=== PATIENT | female | born 1940 | race Caucasian/White ===

== ENCOUNTER 2016-12-16 15:11 | Emergency (ER) | payer MEDICARE, OTHER ==
[2016-12-16 15:24] VITALS: BP 142/65
[2016-12-16 16:04] LABS: Hematocrit 43.1 % (37.0-47.0); Hemoglobin 13.1 gm/dL (12.5-16.0); Mean Cell Volume 89.6 fl (78-100); Mean Corpuscular Hemoglobin 27.2 pg (27-31); Mean Corpuscular Hgb Conc 30.4 g/dl (32-36); Mean Platelet Volume 10.3 fl (6.0-9.5); Neutrophil % 79.8 % (42-75.0); Platelet Count 264 K/mm3 (150-450); Red Blood Count 4.81 M/mm3 (4.2-5.4); Red Cell Distribution Width 20.5 % (11.5-14.0); White Blood Count 7.5 K/mm3 (4.0-10.5)
[2016-12-16 16:18] LABS: INR 1.38 INR (0.90-1.10); Partial Thrombolplastin Time 26.8 Seconds (24-32); Prothrombin Time (Patient) 14.3 Seconds (9.4-11.4)
[2016-12-16 16:23] LABS: Troponin I Less than 0.017 ng/ml (0.00-0.10)
[2016-12-16 16:25] LABS: ALT 38 U/L (19-67); AST 20 U/L (0-48); Albumin * 3.2 gm/dl (3.4-5.0); Alkaline Phosphatase * 80 U/L (50-170); Anion Gap 8.7 mmol/L (6.8-13.8); BNP * 5271 pg/mL (5-550); BUN/Creatinine Ratio 22.8 (9.0-21.6); Bilirubin, Total 1.1 mg/dL (0.0-1.1); Blood Urea Nitrogen 34 mg/dL (3-23); Ca. Corrected For Albumin 10.1 mg/dL (8.4-10.2); Calcium * 9.8 mg/dL (7.9-10.9); Carbon Dioxide 31.1 mmol/L (24-32.6); Chloride 108 mmol/L (97-106); Glucose * 105 mg/dL (70-110); Potassium 3.8 mmol/L (3.4-4.6); Sodium 144 mmol/L (132-142); Total Protein 6.6 gm/dL (6.2-8.2)
--- OUTSIDE RECORDS SUMMARY | 2016-12-16 16:30 | XMS REPORT | Continuity of Care Document ---
:1940 Author Organization [employer] [place] [address] Care Team Providers Name Role Phone Unavailable Primary Care Provider Unavailable Source Comments This disclosure is being made pursuant to the [employer] program and maynot contain all information available regarding this patient.[employer] Active Allergies and Adverse Reactions Not on File Current Medications Be aware that medications may not be up to date as of this document. Alwaysverify current medications with the patient. Not on file Active Problems Not on file Social History Tobacco Use Types Packs/Day Years Used Date Never Assessed Plan of Care Health Maintenance Due Date Last Done Comments Retired-Pertussis Vaccine Adult 1959 Retired-Tetanus Vaccine Adult 1959 Well Adult Visit 1988 Zoster Vaccine 60+ 1998 Bone Density 09/08/2003 Retired-Pneumococcal 23 Vaccine-65+ yo 09/08/2003 Retired-INFLUENZA VACCINE 03/03/2015 Results from Last 3 Months Not on file
--- OUTSIDE RECORDS SUMMARY | 2016-12-16 16:30 | XMS REPORT | Continuity of Care Document ---
:1940 Author Organization [facility] ([facility]) Address [address] [place] [address] Phone [phone] Care Team Providers Name Role Phone Joel Skelton Primary Care Provider [phone] Source Comments This disclosure is being made pursuant to the Care Everywhere program, applicable federal and state laws, and may not contain all informaitonavailable regarding this patient.[facility] ([facility]) Active Allergies and Adverse Reactions Allergen Noted Date Severity Reactions Comments Meperidine 01/12/2009 Cardiac Arrhythmia Had to shock her heart when she received it Penicillins 01/12/2009 OTHER Breathing trouble Sulfadoxine 01/12/2009 OTHER "breathing trouble" Current Medications Prescription Sig. Disp. Refills Start End Date Status Date OXYGEN-AIR DELIVERY Active SYSTEMS (WALKABOUT 2 OXYGEN SYSTEM NA ) ALBUTEROL SULFATE Use by Active (PROAIR HFA INH) inhalation. travoprost (TRAVATAN Z) 1 Drop as needed. Active 0.004 % ophthalmic solution acetaminophen 325 mg Take 325 mg by Active tablet mouth every 4 hours as needed. metoPROLol tartrate 50 Take 75 mg by Active mg tablet mouth 2 times daily. warfarin 5 mg tablet Take 5 mg by Active mouth daily. hydroCHLOROthiazide 25 Take 25 mg by Active mg tablet mouth daily. furosemide 40 mg tablet Take 40 mg by Active mouth daily. digoxin 125 mcg tablet Take 125 mcg by Active mouth daily. ATORVASTATIN 20 mg 12/01/19 Discontinued tablet 3 17 METOPROLOL succinate 50 12/01/19 Discontinued mg XL tablet 3 17 aspirin 325 mg tablet Take 325 mg by 12/01/19 Discontinued mouth daily. 17 atropine 1 % ophthalmic instill 1 Drop 5 mL 0 12/01/19 Discontinued solution onto the right 3 17 eye 2 times daily. Indications: CYCLOPLEGIA prednisoLONE acetate 1 % instill 1 Drop 5 mL 0 12/01/19 Discontinued ophthalmic suspension onto the right 3 17 eye 4 times daily. Indications: SEVERE OCULAR INFLAMMATION tobramycin-dexamethasone apply 1 3.5 g 0 12/01/19 Discontinued (TOBRADEX) 0.3-0.1 % application 3 17 ophthalmic ointment topically 4 times daily. 1/2 inch to the incision; Use for 5-7 days Indications: OCULAR INFLAMMATION tobramycin-dexamethasone instill 1 Drop 5 mL 3 12/01/19 Discontinued 0.3-0.1 % ophthalmic onto the right 3 17 suspension eye 4 times daily. 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 RIGHT EYE LEFT EYE Date Diagnosis Procedure Comments Diagnosis Procedure Comments 08/17/07 demarc demarc Other Ocular Diagnoses: 1.Glaucoma 2. Ocular Procedures OD: 1. 2. Ocular Procedures OS: 1. 2. 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) 11/30/2016 Office Visit Vascular Surgery Default, Other Chief Comp: Patient Billg - Defo Reported Reason For Noah, Visit MD Jyothi 11/30/2016 Office Visit Vascular Surgery Default, Other Chief Comp: Patient Billg - Layo Reported Reason For Devonuntderrick, Visit MD Jyothi 11/30/2016 Office Visit Vascular Surgery Noah, Dx: 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 with other complications 11/30/2016 Office Visit Vascular Surgery Default, Other Chief Comp: Patient Billg - Defo Reported Reason For Visit 11/04/2016 Office Visit [facility] Chief Comp: Patient NMD Reported Reason For Visit Social History Tobacco Use Types Packs/Day Years Used Date Former Smoker Quit: 07/03/1999 Smokeless Tobacco: Never Used Tobacco Cessation:Counseling Given: Yes Comments: Alcohol Use Drinks/Week oz/Week Comments No Last Filed Vital Signs Vital Sign Reading Time Taken Blood Pressure 99/73 11/30/2016 10:13 AM CDT Pulse 64 11/30/2016 10:13 AM CDT Temperature 36.6 C (97.9 F) 06/03/2013 12:12 PM BOND WRITER Respiratory Rate 18 06/03/2013 9:44 AM BOND WRITER Height 1.702 m (5' 7") 11/30/2016 10:13 AM CDT Weight 103.5 kg (228 lb 2.8 oz) 11/30/2016 10:13 AM CDT Body Mass Index 35.73 11/30/2016 10:13 AM CDT Oxygen Saturation 95% 06/03/2013 12:30 PM BOND WRITER Plan of Care Health Maintenance Due Date Last Done Comments Hepatitis B Vaccine (1 of 3 - Primary Series) 1940 Tdap Vaccine 1949 Lipid Disorder Screening 1956 Td Vaccine 1956 Mammogram 1978 Colonoscopy 09/06/1988 Zoster Vaccine 1998 Osteoporosis Screening (DXA Bone Density) 09/08/2003 Pneumococcal Vaccine (1 of 2 - PCV13) 09/08/2003 Influenza Vaccine: Seasonal (Season Ended) 2017 Results from Last 3 Months VASC YOAV, PVR, TOE BP (11/30/2016 11:37 AM) Component Value Range VASC RIGHT ARM BP 123 mmHg VASC LEFT ARM BP 115 mmHg VASC RIGHT POSTERIOR TIBIAL 102 mmHg VASC LEFT POSTERIOR TIBIAL 112 mmHg VASC RIGHT ANTERIOR TIBIAL 105 mmHg VASC LEFT ANTERIOR TIBIAL 110 mmHg VASC RIGHT YOAV 0.85 VASC LEFT YOAV 0.91 VASC RIGHT TOE PRESSURE 72 mmHg VASC LEFT TOE PRESSURE 61 mmHg VASC RIGHT TBI 0.59 VASC LEFT TBI 0.50 VASC LOWER EXT VENOUS DUPLEX (BILATERAL) (11/30/2016 10:00 AM) Component Value Range VASC RIGHT LOWER VENOUS COMMON FEM SEC 0.3 sec VASC RIGHT LOWER VENOUS MID FEM SEC 0.0 sec VASC RIGHT LOWER VENOUS POPLITEAL SEC 0.5 sec VASC RIGHT LOWER VENOUS SAPH FEM JUNCTION SEC 0.1 sec VASC RIGHT LOWER VENOUS SAPH FEM JUNCTION MM 6.5 mm VASC RIGHT LOWER VENOUS LATERAL ACCESORY BRANCH SEC 0.0 sec VASC RIGHT LOWER VENOUS LATERAL ACCESORY BRANCH MM 3.7 mm VASC RIGHT LOWER VENOUS GSV THIGH SEC 0.1 sec VASC RIGHT LOWER VENOUS GSV THIGH MM 4.7 mm VASC RIGHT LOWER VENOUS GSV CALF SEC 0.1 sec VASC RIGHT LOWER VENOUS GSV CALF MM 3.5 mm VASC RIGHT LOWER VENOUS LSV SEC 0.3 sec VASC RIGHT LOWER VENOUS LSV MM 2.9 mm VASC LEFT LOWER VENOUS COMMON FEM SEC 0.4 sec VASC LEFT LOWER VENOUS MID FEM SEC 1.5 sec VASC LEFT LOWER VENOUS POPLITEAL SEC 3.8 sec VASC LEFT LOWER VENOUS SAPH FEM JUNCTION SEC 0.2 sec VASC LEFT LOWER VENOUS SAPH FEM JUNCTION MM 10 mm VASC LEFT LOWER VENOUS MEDIAL ACCESORY BRANCH SEC 0.0 sec VASC LEFT LOWER VENOUS MEDIAL ACCESORY BRANCH MM 4.0 mm VASC LEFT LOWER VENOUS GSV THIGH SEC 0.1 sec VASC LEFT LOWER VENOUS GSV THIGH MM 5.9 mm VASC LEFT LOWER VENOUS GSV CALF SEC 0.0 sec VASC LEFT LOWER VENOUS GSV CALF MM 3.3 mm VASC LEFT LOWER VENOUS LSV SEC 0.0 sec VASC LEFT LOWER VENOUS LSV MM 3.1 mm
--- NOTE | 2016-12-16 17:44 | ERNOTE ---
Medical Problem HPI - Narrative Date of Service: 12/16/16 - General Chief Complaint: General Assessment Time Seen by Provider: 12/16/16 15:32 Source: patient, family Exam Limitations: no limitations - Immun/Allergies/Home Medications Immunizations: IMMUNIZATION HX Immunizations Up to Date Yes History of Influenza Vaccine Yes Hx Pneumococcal Vaccination Yes Allergies/Adverse Reactions: Allergies meperidine HCl [From Demerol] Allergy (Mild, Verified 12/16/16 15:24) Penicillins Allergy (Mild, Verified 12/16/16 15:24) Sulfa (Sulfonamide Antibiotics) [Sulfa(Sulfonamide Antibiotics)] Allergy (Mild, Verified 12/16/16 15:24) Home Medications: HOME MEDICATIONS Metoprolol Succinate 75 mg PO BID 07/12/13 [Last Taken 09/30/15 11:09 50 mg] Furosemide [Lasix] 40 mg PO DAILY 05/04/15 [Last Taken 09/29/15 40 mg] Travoprost (Benzalkonium) [Travoprost 0.004% Eye Drop] 1 drop RIGHTEYE DAILY 08/17 [Last Taken 05/04/15] Arformoterol Tartrate [Brovana] 15 mcg IH BID 05/04/16 [Last Taken Unknown] Digoxin [Lanoxin] 0.125 mg PO DAILY 05/04/16 [Last Taken Unknown] Ipratropium [place] 0.2 mg IH BID 05/04/16 [Last Taken Unknown] Apixaban [Eliquis] 5 mg PO BID 12/16/16 [Last Taken Unknown] - History of Present History Narrative: patient saw dr dias monday and was switched off of coumadin and increased lasix to 80 mgs qday, just starte yesterday started on elliquis has had increase in peripheral swelling known hx of dvt,a-fib,chf Timing: constant Review of Systems - Review of Systems Constitutional: Present: malaise EYE: Present: no symptoms reported ENT: Present: no symptoms reported Respiratory: Present: shortness of breath Cardiology: Present: no symptoms reported Gastrointestinal/Abdominal: Present: no symptoms reported Genitourinary: Present: no symptoms reported Musculoskeletal: Present: no symptoms reported Skin: Present: no symptoms reported Neurological: Present: no symptoms reported Endocrine: Present: no symptoms reported Hematologic/Lymphatic: Present: no symptoms reported Psych: Present: no symptoms reported All Other Systems: All systems neg except as marked - Patient's Past Medical History Patient History - Medical: GERD, Osteoarthritis, Osteoporosis, Rheumatoid Arthritis Patient History - Cardiac/Respiratory: Atrial Fibrillation, Coronary Heart Disease, CHF, COPD, Deep Vein Thrombosis, Hypertension, Hyperlipidemia, Pulmonary Embolism Patient History - Cancer: Breast Patient History - Surgical Procedures: Appendectomy, Cataracts, Cholecystectomy , Colonoscopy Patient History - Other: None LMP (females 10-50): Menopausal - Family History Family History:: no untoward family reactions to anesthesia, no familial bleeding tendencies, no family history of clotting disorders, no family history of premature - Family History Father Family History - Medical: Osteoarthritis, Osteoporosis, Renal Disease Family History - Cardiac/Respiratory: Arrhythmias, Coronary Heart Disease, CHF, COPD, Deep Vein Thrombosis, Hypertension, Myocardial Infarction, Pulmonary Embolism Family History - Cancer: No pertinent family hx Mother Family History - Medical: Family History - Cardiac/Respiratory: Myocardial Infarction - Social History Living Situations: home Abuse History: No History of abuse Psych History: No pertinent hx Smoking Status: Former smoker Alcohol Use: none Drug Use: none - Immunizations Immunizations Up to Date: Yes Hx Pneumococcal Vaccination: Yes History of Influenza Vaccine: Yes Physical Exam - Physical Exam General Appearance: Present: mild distress, anxious Eye Exam: Normal inspection: bilateral, PERRL: bilateral, EOMI: bilateral Ears, Nose, Throat: Present: normal ENT inspection Neck: Present: normal inspection, nontender Respiratory: Present: decreased breath sounds, crackles, rales Cardiovascular/Chest: Present: irregularly irregular, systolic murmur Peripheral Pulses: N=norm/S=strong/W=weak/B=bound/A=absent: Carotid (R): Normal , Carotid (L): Normal, Radial (R): Normal, Radial (L): Normal, Femoral (R): Normal, Femoral (L): Normal, Dorsalis-pedis (R): Normal, Dorsalis-pedis (L): Normal Gastrointestinal/Abdominal: Present: normal bowel sounds, nontender, nondistended, soft, no organomegaly Back Exam: Present: normal inspection, normal range of motion, no CVA tenderness , no vertebral tenderness Extremity Exam: Present: decreased range of motion, pedal edema, calf tenderness , extremity edema Neurological Exam: Present: alert, oriented, normal mood/affect, no motor/ sensory deficits, research chef II-XII nml as tested DTR: N=norm/NB=norm/brisk/A=abs/DD=dull/dimin/HC=hyperactive: Bicep (R): Normal , Bicep (L): Normal, Tricep (R): Normal, Tricep (L): Normal, Knee (R): Normal, Knee (L): Normal, Ankle (R): Normal, Ankle (L): Normal Skin Exam: Present: normal color, warm/dry ED Progress - Results and Orders Patient's Lab Results:: I have reviewed the patient's lab results. - Vital Signs Patient's Vital Signs:: I have reviewed the patient's vital signs. Vital Signs: Vital Signs 12/16/16 15:12 Temperature 36.7 C Pulse Rate 115 H Respiratory 22 H Rate Blood Pressure 142/65 O2 Sat by Pulse 95 Oximetry - EKG EKG: atrial fibrillation - X-Ray X-Ray #1 Interpretation: Discd w/ radiologist - Progress/Reassessment Chief Complaint: General Assessment Progress:: Unchanged - Transfer of Care Expected Disposition: Discharge Departure - Departure Clinical Impression: Atrial fibrillation, DVT (deep venous thrombosis) Additional Instructions: patient to continue with lasix 80 mgs /day and elliquis as prescribed by dr zamora, f/u on monday Referrals: Joel Zamora DO [Primary Care Provider] -
== END 2016-12-16 17:44 | disposition home or self-care (01) ==
LOC: ER 15:11
DX: I48.91 Unspecified atrial fibrillation (principal); Z79.01 Long term (current) use of anticoagulants; I82.409 Acute embolism and thrombosis of unspecified deep veins of unspecified lower extremity; K21.9 Gastro-esophageal reflux disease without esophagitis; M06.9 Rheumatoid arthritis, unspecified; I25.2 Old myocardial infarction; I50.9 Heart failure, unspecified; J44.9 Chronic obstructive pulmonary disease, unspecified; I10 Essential (primary) hypertension; E78.5 Hyperlipidemia, unspecified

== ENCOUNTER 2016-12-24 21:04 | Observation (INO) | payer MEDICARE, OTHER ==
--- NOTE | 2016-12-24 21:13 | ERNOTE ---
Dyspnea - Date Date of Service: 12/24/16 - General Presenting Symptoms: shortness of breath Time Seen by Provider: 12/24/16 21:12 Source: patient Exam Limitations: no limitations - Immun/Allergies/Home Medications Immunizations: IMMUNIZATION HX Immunizations Up to Date Yes History of Influenza Vaccine Yes Hx Pneumococcal Vaccination Yes Allergies/Adverse Reactions: Allergies meperidine HCl [From Demerol] Allergy (Mild, Verified 12/16/16 15:24) Penicillins Allergy (Mild, Verified 12/16/16 15:24) Sulfa (Sulfonamide Antibiotics) [Sulfa(Sulfonamide Antibiotics)] Allergy (Mild, Verified 12/16/16 15:24) Home Medications: HOME MEDICATIONS Travoprost (Benzalkonium) [Travoprost 0.004% Eye Drop] 1 drop RIGHTEYE DAILY 08/17 [Last Taken 05/04/15] Digoxin [Lanoxin] 0.125 mg PO DAILY 05/04/16 [Last Taken Unknown] Ipratropium [place] 250 mcg IH BID 05/04/16 [Last Taken Unknown] Apixaban [Eliquis] 5 mg PO BID 12/16/16 [Last Taken Unknown] Budesonide [Pulmicort Respules] 0.5 mg IH BID 12/24/16 [Last Taken Unknown] Sodium Chloride For Inhalation [Sodium Chloride 3% Inhalation Solution] 4 ml IH BID 12/24/16 [Last Taken Unknown] Acetaminophen 650 mg PO Q6H PRN #30 tablet 12/26/16 [Last Taken Unknown] Furosemide [Lasix] 80 mg PO DAILY@1200 #30 tablet 12/26/16 [Last Taken Unknown] Lisinopril [Zestril] 2.5 mg PO DAILY #30 tablet 12/26/16 [Last Taken Unknown] Metoprolol Succinate [Toprol Xl] 150 mg PO HS #.1 tablet.sa 12/26/16 [Last Taken Unknown] Pantoprazole Sodium [Protonix] 40 mg PO 0700 tablet. 12/26/16 [Last Taken Unknown] Spironolactone [Aldactone] 25 mg PO DAILY@1200 #90 tablet 12/26/16 [Last Taken Unknown] - History of Present Illness Narrative: 76 year old that has been short of breath for a few months. In the last 1-2 days the shortness of breath has worsened, and she believes that it is her CHF is the cause of it. Denies any coughing, fevers, chill, or N/V. There has been intermittent occurrence of chest pain, that last for a few minutes, and which she has experienced before. No complaints of abdominal pain. Oxygen dependent 24 hours a day, and uses 3 liters/min. 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 Initiating event: Reports: unknown Frequency of episodes: Reports: occassional episodes Modifying Factors - (Improves): Reports: other - nothing Modifying Factors (Worsens): Reports: activity Associated Symptoms-Dyspnea: Reports: denies symptoms Prior Treatment: Reports: recently seen Review of Systems - Review of Systems Constitutional: Present: no symptoms reported EYE: Present: no symptoms reported ENT: Present: no symptoms reported Respiratory: Present: See HPI Cardiology: Present: no symptoms reported Gastrointestinal/Abdominal: Present: no symptoms reported Genitourinary: Present: no symptoms reported Musculoskeletal: Present: other - left leg redness for a few months. Noted edema for a few months. Recenlty started on Clindamycin. Skin: Present: no symptoms reported Neurological: Present: no symptoms reported Endocrine: Present: no symptoms reported Hematologic/Lymphatic: Present: no symptoms reported Psych: Present: no symptoms reported - Patient's Past Medical History Patient History - Medical: GERD, Osteoarthritis, Osteoporosis, Rheumatoid Arthritis Patient History - Cardiac/Respiratory: Atrial Fibrillation, Coronary Heart Disease, CHF, COPD, Deep Vein Thrombosis, Hypertension, Hyperlipidemia, Pulmonary Embolism Patient History - Cancer: Breast Patient History - Surgical Procedures: Appendectomy, Cataracts, Cholecystectomy , Colonoscopy Patient History - Other: None - Family History Father Family History - Medical: Osteoarthritis, Osteoporosis, Renal Disease Family History - Cardiac/Respiratory: Arrhythmias, Coronary Heart Disease, CHF, COPD, Deep Vein Thrombosis, Hypertension, Myocardial Infarction, Pulmonary Embolism Family History - Cancer: No pertinent family hx Mother Family History - Medical: Family History - Cardiac/Respiratory: Myocardial Infarction - Social History Living Situations: home Abuse History: No History of abuse Psych History: No pertinent hx Alcohol Use: none Drug Use: none - Immunizations Immunizations Up to Date: Yes Hx Pneumococcal Vaccination: Yes History of Influenza Vaccine: Yes Physical Exam - Physical Exam General Appearance: Present: no apparent distress Eye Exam: Normal inspection: bilateral Ears, Nose, Throat: Present: normal ENT inspection Neck: Present: normal inspection, supple, full range of motion Respiratory: Present: accessory muscle use, wheezing, other - diminhsed breath sounds bilaterally Cardiovascular/Chest: Present: tachycardia Gastrointestinal/Abdominal: Present: nontender, nondistended, soft Back Exam: Present: normal inspection, normal range of motion, no CVA tenderness Extremity Exam: Present: extremity edema, other - left distal one half of the leg is erythematous and increased warmth. Neurological Exam: Present: alert, oriented, normal mood/affect Skin Exam: Present: normal color, warm/dry ED Progress - Results and Orders Patient's Lab Results:: I have reviewed the patient's lab results. - Vital Signs Patient's Vital Signs:: I have reviewed the patient's vital signs. - EKG EKG: atrial fibrillation, other EKG Comments: PVCs, normal axis, rate of 101 - X-Ray X-Ray #1 X-Ray: chest X-ray Comments: no acute changes. - Progress/Reassessment Progress:: Improved Progress Note-Subjective: 12/25/16 00:06 Appears much more comfortable since getting Bumex. 40 cc of urine put out thus far. Now off of BIPAP and on 3 liters which she is on at home. Departure Clinical Impression: Cellulitis of left anterior lower leg CHF (congestive heart failure) Qualifiers: Congestive heart failure type: systolic Congestive heart failure chronicity: acute on chronic Qualified Code(s): I50.23 - Acute on chronic systolic ( congestive) heart failure - Departure Disposition: [facility] Condition: Undetermined
[2016-12-24 21:31] LABS: Hematocrit 44.6 % (37.0-47.0); Hemoglobin 13.7 gm/dL (12.5-16.0); Mean Cell Volume 89.7 fl (78-100); Mean Corpuscular Hemoglobin 27.6 pg (27-31); Mean Corpuscular Hgb Conc 30.7 g/dl (32-36); Mean Platelet Volume 10.4 fl (6.0-9.5); Neutrophil # 6.4 K/mm3 (1.3-6.0); Neutrophil % 78.3 % (42-75.0); Platelet Count 284 K/mm3 (150-450); Red Blood Count 4.97 M/mm3 (4.2-5.4); Red Cell Distribution Width 19.6 % (11.5-14.0); White Blood Count 8.2 K/mm3 (4.0-10.5)
[2016-12-24 21:32] LABS: Venous Blood Gas HCO3 28.4 mmol/L (22.0-29.0); Venous Blood Gas pH 7.41 (7.32-7.43)
[2016-12-24] MEDS ORDERED: ALBUTEROL SULFATE 2.5 MG/3 ML VIAL.NEB IH ONE (21:33)
[2016-12-24] MEDS ORDERED: ALBUTEROL SULFATE 2.5 MG/0.5 ML VIAL.NEB IH ONE ×2 (21:37→21:39)
[2016-12-24 21:42] LABS: Anion Gap 9.1 mmol/L (6.8-13.8); BNP * 6776 pg/mL (5-550); BUN/Creatinine Ratio 20.4 (9.0-21.6); Blood Urea Nitrogen 30 mg/dL (3-23); Chloride 106 mmol/L (97-106); Estimated Creat Clear 30.7; Glucose * 130 mg/dL (70-110); Potassium 4.1 mmol/L (3.4-4.6); Sodium 143 mmol/L (132-142); Troponin I Less than 0.017 ng/ml (0.00-0.10)
[2016-12-24 22:19] LABS: Urine Bilirubin Negative (NEGATIVE); Urine Ketone Negative (NEGATIVE); Urine Nitrite Negative (NEGATIVE); Urine Protein Negative (NEGATIVE); Urine Urobilinogen Normal (NORMAL); Urine pH 6.5 pH (5.0-7.0)
--- OUTSIDE RECORDS SUMMARY | 2016-12-24 22:25 | XMS REPORT | Continuity of Care Document ---
:1940 Author Organization [employer] [place] [address] Care Team Providers Name Role Phone Unavailable Primary Care Provider Unavailable Source Comments This disclosure is being made pursuant to the [employer] program and maynot contain all information available regarding this patient.[employer] Active Allergies and Adverse Reactions Not on [...]
[2016-12-24 22:28] LABS: Urine Appearance Clear; Urine Blood 5 /ul (NEGATIVE); Urine Color Yellow; Urine WBC None Seen /hpf (0-5)
[2016-12-24 22:29] LABS: Urine Bacteria None Seen; Urine RBC None Seen /hpf (0-5)
[2016-12-24] MEDS ORDERED: BUMETANIDE 0.25 MG/ML VIAL ONE (22:38)
[2016-12-24] MEDS ORDERED: BUMETANIDE 0.25 MG/ML VIAL IV ONE (23:15)
[2016-12-25] MEDS ORDERED: VANCOMYCIN HCL 1 GM in DEXTROSE 5 % IN WATER 250 ML IV ONE ×2 (00:07)
--- OUTSIDE RECORDS SUMMARY | 2016-12-25 00:13 | XMS REPORT | Continuity of Care Document ---
:1940 Author Organization [employer] [place] [address] Care Team Providers Name Role Phone Unavailable Primary Care Provider Unavailable Source Comments This disclosure is being made pursuant to the [employer] program and maynot contain all information available regarding this patient.[employer] Active Allergies and Adverse Reactions Not on [...]
[2016-12-25] MEDS ORDERED: guaiFENesin 100 MG/5 ML BTL PO PRN (00:58)
--- NOTE | 2016-12-25 01:07 | HP ---
Chief Complaint - Chief Complaint Date of Service: 12/25/16 Time of Service: 01:07 Chief Complaint: CHF exac, COPD exac, lower extremity cellulitis History of Present Illness: Deborah is a 76 year old female patient of Dr. Skelton with a PMH of COPD, chronic respiratory failure (uses 3L via nc), systolic CHF, afib (on eliquis), and FRANCIS who presented to the ER tonight with c/o dyspnea for the 2 months that has severely worsened in the last 2 days. Also c/o 20 lbs weight gain in the last 2 months that she believes is related to her CHF. denies cp. ER eval reviewed ABG c/w respiratory acidosis, normal wbc with mildly elevated neutrophils at 78.3%. BUN/cr 30/1.47, trop wnl, lactic acid wnl, BNP elevated at 6776, UA + blood only, and digoxin level wnl. Last echo done 03/24/16 showed ef 40-45% and moderately dilated left atrium. patient was also found to have cellulitis on her left lower extremity, for which she is currently on clindamycin po. Patient to be admitted for systolic CHF exacerbation, COPD exacerbation, and cellulitis. - Patient's Past Medical History Patient History - Medical: GERD, Osteoarthritis, Osteoporosis, Rheumatoid Arthritis Patient History - Cardiac/Respiratory: Atrial Fibrillation, Coronary Heart Disease, CHF, COPD, Deep Vein Thrombosis, Hypertension, Hyperlipidemia, Pulmonary Embolism Patient History - Cancer: Breast Patient History - Surgical Procedures: Appendectomy, Cataracts, Cholecystectomy , Colonoscopy Patient History - Other: None LMP (females 10-50): Menopausal - Family History Father Family History - Medical: Osteoarthritis, Osteoporosis, Renal Disease Family History - Cardiac/Respiratory: Arrhythmias, Coronary Heart Disease, CHF, COPD, Deep Vein Thrombosis, Hypertension, Myocardial Infarction, Pulmonary Embolism Family History - Cancer: No pertinent family hx Mother Family History - Medical: Family History - Cardiac/Respiratory: Myocardial Infarction - Social History Living Situations: home Abuse History: No History of abuse Psych History: No pertinent hx Smoking Status: Former smoker Have you smoked in the past 12 months: No Do you dip or chew tobacco: No Alcohol Use: none Drug Use: none - Immunizations Immunizations Up to Date: Yes Hx Pneumococcal Vaccination: Yes History of Influenza Vaccine: Yes Review Of Systems (GEN) - Review of Systems Generalized/Overall Review: Present: Weakness, Fatigue EENTM: Present: No Symptoms Reported Respiratory: Present: Shortness of Breath, Wheezing Cardiac: Present: Edema Abdominal: Present: No Symptoms Reported Genitourinary: Present: No Symptoms Reported Musculoskeletal: Present: No Symptoms Reported Neurological: Present: No Symptoms Reported Skin: Present: No Symptoms Reported Endocrine: Present: No Symptoms Reported Misc: All systems neg except as marked Immunizations: IMMUNIZATION HX Immunizations Up to Date Yes History of Influenza Vaccine Yes Hx Pneumococcal Vaccination Yes Allergies/Adverse Reactions: Allergies Allergy/AdvReac Type Severity Reaction Status Date / Time meperidine HCl [From Demerol] Allergy Mild Verified 12/16/16 15:24 Penicillins Allergy Mild Verified 12/16/16 15:24 Sulfa (Sulfonamide Allergy Mild Verified 12/16/16 15:24 Antibiotics) [Sulfa(Sulfonamide Antibiotics)] Home Medications: HOME MEDICATIONS Metoprolol Succinate 75 mg PO BID 07/12/13 [Last Taken 09/30/15 11:09 50 mg] Furosemide [Lasix] 80 mg PO DAILY 05/04/15 [Last Taken 09/29/15 40 mg] Travoprost (Benzalkonium) [Travoprost 0.004% Eye Drop] 1 drop RIGHTEYE DAILY 08/17 [Last Taken 05/04/15] Digoxin [Lanoxin] 0.125 mg PO DAILY 05/04/16 [Last Taken Unknown] Ipratropium [place] 0.2 mg IH BID 05/04/16 [Last Taken Unknown] Apixaban [Eliquis] 5 mg PO BID 12/16/16 [Last Taken Unknown] Budesonide [Pulmicort Respules] 0.5 mg IH BID 12/24/16 [Last Taken Unknown] Hydrochlorothiazide 12.5 mg PO DAILY 12/24/16 [Last Taken Unknown] Potassium Chloride [Klor-Con M20] 20 meq PO DAILY 12/24/16 [Last Taken Unknown] Sodium Chloride For Inhalation [Sodium Chloride 3% Inhalation Solution] 4 ml IH BID 12/24/16 [Last Taken Unknown] Exam - Exam Vital Signs: Vital Signs - Last Taken Temp 36.5 C 12/24/16 22:14 Pulse 90 12/25/16 00:19 Resp 16 12/25/16 00:19 BP 93/57 12/25/16 00:19 Pulse Ox 94 12/25/16 00:19 Constitutional: Present: Alert, Cooperative, Moderate distress, Elderly ENT Exam: Present: hearing grossly normal Eye Exam: bilateral eye: normal inspection Neck: Present: supple Breasts: Present: Exam deferred Respiratory: Present: chest non-tender, respiratory distress - mild to moderate , rhonchi, wheezing, expiration (prolonged) Cardiovascular/Chest: Present: normal peripheral pulses, no murmur, irregularly irregular Peripheral Pulses: dorsalis-pedis (R): 2+, dorsalis-pedis (L): 2+, radial (R): 2 +, radial (L): 2+ Abdomen: Present: soft, nontender, nondistended /Rectal: Present: Exam deferred Extremity: Present: non-tender, inflammation - left lower leg from mid love down the rest of the leg is warm to touch and swollen with noticeable erythema. , lower extremity edema - +2 lower extremity edema bilat Skin Exam: Present: warm/dry, no cyanosis Diagnostic Studies: Laboratory Results WBC 8.2 K/mm3 (4.0-10.5) 12/24/16 21:15 RBC 4.97 M/mm3 (4.2-5.4) 12/24/16 21:15 Hgb 13.7 gm/dL (12.5-16.0) 12/24/16 21:15 Hct 44.6 % (37.0-47.0) 12/24/16 21:15 MCV 89.7 fl (78-100) 12/24/16 21:15 MCH 27.6 pg (27-31) 12/24/16 21:15 MCHC 30.7 g/dl (32-36) L 12/24/16 21:15 RDW 19.6 % (11.5-14.0) H 12/24/16 21:15 Plt Count 284 K/mm3 (150-450) 12/24/16 21:15 MPV 10.4 fl (6.0-9.5) H 12/24/16 21:15 Immature Gran % (Auto) 0.40 % (0.001-0.429) 12/24/16 21:15 Immature Gran # (Auto) 0.03 K/mm3 (0.000-0.0310) 12/24/16 21:15 Neutrophils % 78.3 % (42-75.0) H 12/24/16 21:15 Lymphocytes % 10.4 % (20-51) L 12/24/16 21:15 Monocytes % 7.7 % (0.0-9) 12/24/16 21:15 Eosinophils % 3.1 % (0.0-3.0) H 12/24/16 21:15 Basophils % 0.1 % (0.0-1.0) 12/24/16 21:15 Nucleated RBC % 0.0 k/mm3 (0-1) 12/24/16 21:15 Neutrophils # 6.4 K/mm3 (1.3-6.0) H 12/24/16 21:15 Lymphocytes # 0.9 k/mm3 (1.5-3.5) L 12/24/16 21:15 Monocytes # 0.6 k/mm3 (0.0-1.0) 12/24/16 21:15 Eosinophils # 0.3 k/mm3 (0.0-0.7) 12/24/16 21:15 Absolute Basophils 0.0 k/mm3 (0.0-0.1) 12/24/16 21:15 pCO2 46.3 mmHg (32.0-45.0) H 12/24/16 21:15 pO2 47.3 mmHg (23.3-35.1) H 12/24/16 21:15 HCO3 28.4 mmol/L (22.0-29.0) 12/24/16 21:15 Total CO2 29.8 mmol/L (22.0-26.0) H 12/24/16 21:15 Base Excess 3.0 mmol/L (-2.0-3.0) 12/24/16 21:15 ABG pH 7.41 (7.32-7.43) 12/24/16 21:15 VBG O2 Saturation 83.1 % (94.0-98.0) L 12/24/16 21:15 Sodium 143 mmol/L (132-142) H 12/24/16 21:15 Plasma Sodium 143 mmol/L (130-142) H 12/24/16 21:15 Potassium 4.1 mmol/L (3.4-4.6) 12/24/16 21:15 Chloride 106 mmol/L (97-106) 12/24/16 21:15 Carbon Dioxide 32.0 mmol/L (24-32.6) 12/24/16 21:15 Anion Gap 9.1 mmol/L (6.8-13.8) 12/24/16 21:15 BUN 30 mg/dL (3-23) H 12/24/16 21:15 Creatinine 1.47 mg/dL (0.4-1.4) H 12/24/16 21:15 Est GFR (Non-Af Amer) 37 mL/min (60-130) L 12/24/16 21:15 BUN/Creatinine Ratio 20.4 (9.0-21.6) 12/24/16 21:15 Random Glucose 130 mg/dL (70-110) H 12/24/16 21:15 Lactic Acid, Venous 1.8 mmol/L (0.4-1.9) 12/24/16 21:15 Calcium 10.0 mg/dL (7.9-10.9) 12/24/16 21:15 Troponin I Less than 0.017 ng/ml (0.00-0.10) 12/24/16 21:15 B-Natriuretic Peptide 6776 pg/mL (5-550) H 12/24/16 21:15 Urine Color Yellow 12/24/16 22:10 Urine Appearance Clear 12/24/16 22:10 Urine pH 6.5 pH (5.0-7.0) 12/24/16 22:10 Ur Specific [place] 1.010 SP.GR. (1.005-1.010) 12/24/16 22:10 Urine Protein Negative mg/dL (NEGATIVE) 12/24/16 22:10 Urine Glucose (UA) Negative mg/dL (NEGATIVE) 12/24/16 22:10 Urine Ketones Negative mg/dL (NEGATIVE) 12/24/16 22:10 Urine Blood 5 /ul (NEGATIVE) H 12/24/16 22:10 Urine Nitrate Negative (NEGATIVE) 12/24/16 22:10 Urine Bilirubin Negative mg/dl (NEGATIVE) 12/24/16 22:10 Urine Urobilinogen Normal EU/dl (NORMAL) 12/24/16 22:10 Ur Leukocyte Esterase Negative /ul (NEGATIVE) 12/24/16 22:10 Urine RBC None seen /hpf (0-5) 12/24/16 22:10 Urine WBC None seen /hpf (0-5) 12/24/16 22:10 Ur Epithelial Cells None seen /hpf (0-5) 12/24/16 22:10 Urine Bacteria None seen (NONE) 12/24/16 22:10 Urine Culture Comments No culture indicated 12/24/16 22:10 Digoxin 1.1 ng/mL (0.5-2.0) 12/24/16 21:15 Assessment/Plan - Narrative Narrative: COPD exacerbation - wheezing extensively on admission - nebulizer treatments given in ER. - Start Solumedtrol 80 mg q 8 hours IV - Day #1 - Antibiotics (Per COPD protocol) - Rocephin 2 gm iv daily - Daily #1 - dosed higher due to patient's co-existing cellulitis - Azithromycin 500 mg iv - Daily #1 - incentive spirometer q 1 hour while awake - Cont O2 monitoring - restart home COPD meds CHF exacerbation, systolic - Bumex 1 mg iv given in ER - 800 ml urine output upon arrival to unit - Daily weight - Strict I&Os - CHF teaching - last ef 40-45% - patient states weight is up 20 lbs - ? additional dose of diuretic in am? - check labs in am. Cellulitis of left lower leg - there is one side of the inflammation that is well demarcated but the remaining sides are not. - patient is not a diabetic - thus, strep infection more likely, staph infection less likely - Start Rocephin 2 gm iv daily - Day #1 - add probiotics - watch labs - if wbc does not trend down, will need to try stronger abx at that time. Afib, chronic - on eliquis for anticoagulation - mildly tachycardic - monitor on telemetry. HTN - vital signs q 4 hours FRANCIS - cpap / bipap Code status: Full code with restrictions VTE: eliquis GI proph: protonix po - Assessment/Plan (1) COPD exacerbation Problem: Acute (2) CHF (congestive heart failure) Problem: Acute Qualifiers: Congestive heart failure type: systolic Congestive heart failure chronicity : acute on chronic Qualified Code(s): I50.23 - Acute on chronic systolic ( congestive) heart failure (3) Cellulitis of left lower leg Problem: Acute (4) Atrial fibrillation Problem: Chronic Qualifiers: Atrial fibrillation type: chronic Qualified Code(s): I48.2 - Chronic atrial fibrillation (5) HTN (hypertension) Problem: Acute Qualifiers: Hypertension type: essential hypertension Qualified Code(s): I10 - Essential (primary) hypertension (6) FRANCIS (obstructive sleep apnea) Problem: Chronic
[2016-12-25] MEDS: METHYLPREDNISOLONE SOD SUCC 80 MG in WATER FOR INJ.,BACTERIOSTATIC 0 ML IV SCH ×2 (01:54→09:14)
[2016-12-25] MEDS: AZITHROMYCIN 250 MG TABLET PO SCH ×2 (01:58→20:44)
[2016-12-25 05:42] LABS: Anion Gap 11.1 mmol/L (6.8-13.8); BUN/Creatinine Ratio 18.3 (9.0-21.6); Calcium * 9.8 mg/dL (7.9-10.9); Carbon Dioxide 32.9 mmol/L (24-32.6); Estimated Creat Clear 34.4
[2016-12-25] MEDS: IPRATROPIUM BROMIDE 0.5 MG/2.5 ML VIAL.NEB IH SCH ×2 (06:05→18:13)
[2016-12-25] MEDS ORDERED: BUDESONIDE 0.5 MG/2 ML VIAL.NEB IH SCH (07:00)
[2016-12-25] MEDS: PANTOPRAZOLE SODIUM 40 MG TABLET.EC PO SCH (07:20)
[2016-12-25] MEDS ORDERED: METOPROLOL SUCCINATE 50 MG TABLET.SA PO SCH (09:00)
[2016-12-25] MEDS ORDERED: TRAVOPROST 25 DROP BTL RIGHTEYE SCH (09:00)
[2016-12-25] MEDS ORDERED: POTASSIUM CHLORIDE 20 MEQ TABLET.SA PO SCH (09:00)
[2016-12-25] MEDS ORDERED: HYDROCHLOROTHIAZIDE 12.5 MG CAPSULE PO SCH (09:00)
[2016-12-25] MEDS: SACCHAROMYCES BOULARDII 250 MG CAPSULE PO SCH ×2 (09:13→20:39)
[2016-12-25] MEDS: DIGOXIN 0.125 MG TABLET PO SCH (09:13)
[2016-12-25] MEDS: APIXABAN 2.5 MG TABLET PO SCH ×2 (09:14→20:38)
[2016-12-25] MEDS: METOPROLOL SUCCINATE 25 MG TABLET.SA PO SCH ×2 (09:15→20:39)
[2016-12-25] MEDS ORDERED: METOLAZONE 2.5 MG TABLET PO ONE (13:30)
[2016-12-25] MEDS ORDERED: SPIRONOLACTONE 25 MG TABLET PO ONE (14:00)
[2016-12-25] MEDS ORDERED: FUROSEMIDE 10 MG/ML VIAL IV ONE (14:00)
[2016-12-26 05:51] LABS: Anion Gap 8.2 mmol/L (6.8-13.8); BUN/Creatinine Ratio 23.2 (9.0-21.6); Calcium * 9.8 mg/dL (7.9-10.9); Carbon Dioxide 36.5 mmol/L (24-32.6); Estimated Creat Clear 36.1; Potassium 3.7 mmol/L (3.4-4.6)
[2016-12-26] MEDS: IPRATROPIUM BROMIDE 0.5 MG/2.5 ML VIAL.NEB IH SCH (06:08)
[2016-12-26] MEDS: PANTOPRAZOLE SODIUM 40 MG TABLET.EC PO SCH (06:40)
[2016-12-26] MEDS: APIXABAN 2.5 MG TABLET PO SCH (08:13)
[2016-12-26] MEDS: METOPROLOL SUCCINATE 25 MG TABLET.SA PO SCH (08:14)
[2016-12-26] MEDS: SACCHAROMYCES BOULARDII 250 MG CAPSULE PO SCH (08:15)
[2016-12-26] MEDS: DIGOXIN 0.125 MG TABLET PO SCH (08:15)
[2016-12-26] MEDS ORDERED: TRAVOPROST 25 DROP BTL RIGHTEYE SCH (09:00)
[2016-12-26 09:54] LABS: Urine Appearance Slightly Cloudy; Urine Bacteria 1+; Urine Bilirubin Negative (NEGATIVE); Urine Blood 250 /ul (NEGATIVE); Urine Color Red; Urine Ketone Negative (NEGATIVE); Urine Nitrite Negative (NEGATIVE); Urine Protein Negative (NEGATIVE); Urine RBC None Seen /hpf (0-5); Urine Urobilinogen Normal (NORMAL); Urine WBC >50 /hpf (0-5)
[2016-12-26 10:03] VITALS: BP 109/64
--- NOTE | 2016-12-26 13:31 | DS ---
(1) HFrEF (heart failure with reduced ejection fraction) Diagnosis(s): Echocardiogram on 12/20/2016 by TO: EF 30-35%;diffuse hypokinesis of the left ventricle. Marked LAE, RA normal, RV function normal, aortic valve sclerosis w/o stenosis, RVSP 53 mmHg. Problem: Acute Qualifiers: Heart failure chronicity: acute on chronic Qualified Code(s): I50.23 - Acute on chronic systolic (congestive) heart failure (2) Chronic atrial fibrillation Problem: Chronic (3) COPD on 3L O2 Problem: Chronic (4) H/O double mastectomy Diagnosis(s): bilateral breast CA. Problem: Chronic Description of Stay: DATE OF ADMISSION: 12/25/2016. DATE OF DISCHARGE: 12/26/2016. DIAGNOSTICS: NONE DISCHARGE SUMMARY: Deborah Cruz is a 76-year-old WF with a history of COPD on 3L of O2, HFrEF with 30-35%, diffuse hypokinesis of LV, RVSP 53 mmHg[echo 12/20/16] double mastectomy, obesity [BMI 35.5], A. fib/PE on Eliquis, who came in due to weight gain, lower leg swelling and shortness of breath. Significant labs BNP 6776 pg / mL, BUN/CR 30/1.47. Patient given diuretics with improvement in symptoms. I/ O's and weights were maintained. Electrolytes were checked. Patient is discharged in a stable condition. List of high salt foods were given. Patient was started on ELOISE inhibitor. Will be seen on the with CMP. Procedures Performed: none Results and Findings: Laboratory Tests 12/24/16 21:15 WBC 8.2 Hgb 13.7 Hct 44.6 Plt Count 284 12/24/16 12/25/16 12/26/16 21:15 05:15 05:25 Plasma Sodium 143 H 145 H 142 Potassium 4.1 4.0 3.7 Chloride 106 104 100 Carbon Dioxide 32.0 32.9 H 36.5 H BUN 30 H 24 H 29 H Creatinine 1.47 H 1.31 1.25 Est GFR (Non-Af Amer) 37 L 42 L 44 L Random Glucose 130 H 150 H 162 H 12/24/16 21:15 Lactic Acid, Venous 1.8 Troponin I < 0.017 B-Natriuretic Peptide 6776 H 12/26/16 09:03 Urine Blood 250 H Urine WBC >50 H Urine Bacteria 1+ H CXR : 12/25/2016: Diffuse hyperinflation w/o infiltrates. DJD of the spine. No acute cardiopulmonary pathology identified. Microbiology 12/24/16 21:30 Blood Blood Culture - Preliminary NO GROWTH 24 HOURS 12/24/16 21:15 Blood Blood Culture - Preliminary NO GROWTH 24 HOURS 12/25/16 12/25/16 01:35 05:24 Weight 111.1 kg 110.6 kg Discharge Disposition: Home self care Disposition: [facility] Condition: Undetermined Discharge Activity: Activity as tolerated Assisted Therapy: Physicial Therapy Referrals: Joel Skelton DO [Primary Care Provider] - Problem Oriented Discharge Instructions to Patient/Family: Chest Wall Pain, [id number], CHF Patient Instructions Additional Patient Instructions (free text): Follow up with Dr. Carter 1 week 01/02 at 10:30. [facility]. Prescriptions (Any new or edited meds): Acetaminophen 650 mg PO Q6H PRN #30 tablet PRN Reason: Mild Pain Complete Home Medications List: Complete Home Medication List: Travoprost (Benzalkonium) [Travoprost 0.004% Eye Drop] 1 drop RIGHTEYE DAILY 08/17 Ipratropium [place] 250 mcg IH BID 05/04/16 Apixaban [Eliquis] 5 mg PO BID 12/16/16 Budesonide [Pulmicort Respules] 0.5 mg IH BID 12/24/16 Sodium Chloride For Inhalation [Sodium Chloride 3% Inhalation Solution] 4 ml IH DAILY 12/24/16 Acetaminophen 650 mg PO Q6H PRN #30 tablet 12/26/16 Pantoprazole Sodium [Protonix] 40 mg PO 0700 tablet. 12/26/16 Cholecalciferol [Vitamin D] 5,000 unit PO DAILY@1200 tablet 01/19/17 Digoxin [Lanoxin] 0.125 mg PO Q48H #15 tablet 01/19/17 Furosemide [Lasix] 40 mg PO DAILY #30 tablet 01/19/17 Metoprolol Succinate [Toprol Xl] 100 mg PO BID #60 tablet. 01/19/17 Spironolactone 50 mg PO DAILY #30 tablet 01/19/17 Amb Orders for Discharge: Comprehensive Metabolic Panel Time Frame: 12/29/16, Location: Determined By Patient
== END 2016-12-26 14:10 | disposition home health service (06) ==
LOC: ER 21:04 → MS 12-25 00:08
PROVIDERS: ADMIT Nurse Practitioner Critical Care Medicine; ATTEND Internal Medicine
DX: I50.23 Acute on chronic systolic (congestive) heart failure (principal); J44.9 Chronic obstructive pulmonary disease, unspecified; Z87.891 Personal history of nicotine dependence; I48.2 Chronic atrial fibrillation; Z79.01 Long term (current) use of anticoagulants; I10 Essential (primary) hypertension; Z86.718 Personal history of other venous thrombosis and embolism; Z86.711 Personal history of pulmonary embolism; M19.90 Unspecified osteoarthritis, unspecified site; G47.33 Obstructive sleep apnea (adult) (pediatric); Z85.3 Personal history of malignant neoplasm of breast
CPT/HCPCS: 36415; 36416; 71010; 80048; 80162; 81001; 82803; 83605; 83880; 84484; 85025; 87040; 93005; 94640; 96374; 96375; 96376; 99285; G0378

== ENCOUNTER 2017-01-15 11:56 | Inpatient (IN) | payer MEDICARE, OTHER ==
--- OUTSIDE RECORDS SUMMARY | 2017-01-15 12:14 | XMS REPORT | Continuity of Care Document ---
:1940 Author Organization [facility] [place] [address] Care Team Providers Name Role Phone Unavailable Primary Care Provider Unavailable Source Comments This disclosure is being made pursuant to the [employer] program and maynot contain all information available regarding this patient.[facility] Active Allergies and Adverse Reactions Not on [...]
--- NOTE | 2017-01-15 12:16 | ERNOTE ---
Dyspnea - General Presenting Symptoms: shortness of breath Time Seen by Provider: 01/15/17 12:07 Source: patient Exam Limitations: no limitations - Immun/Allergies/Home Medications Immunizations: IMMUNIZATION HX Immunizations Up to Date Yes History of Influenza Vaccine Yes Hx Pneumococcal Vaccination Yes Allergies/Adverse Reactions: Allergies meperidine HCl [From Demerol] Allergy (Mild, Verified 01/15/17 14:25) Penicillins Allergy (Mild, Verified 01/15/17 14:25) Sulfa (Sulfonamide Antibiotics) [Sulfa(Sulfonamide Antibiotics)] Allergy (Mild, Verified 01/15/17 14:25) Home Medications: HOME MEDICATIONS Travoprost (Benzalkonium) [Travoprost 0.004% Eye Drop] 1 drop RIGHTEYE DAILY 08/17 [Last Taken 01/14/17 20:00] Ipratropium [place] 250 mcg IH BID 05/04/16 [Last Taken 01/15/17 08:00] Apixaban [Eliquis] 5 mg PO BID 12/16/16 [Last Taken 01/15/17 08:00] Budesonide [Pulmicort Respules] 0.5 mg IH BID 12/24/16 [Last Taken 01/15/17 08: 00] Sodium Chloride For Inhalation [Sodium Chloride 3% Inhalation Solution] 4 ml IH DAILY 12/24/16 [Last Taken 01/14/17 08:00] Acetaminophen 650 mg PO Q6H PRN #30 tablet 12/26/16 [Last Taken Unknown] Pantoprazole Sodium [Protonix] 40 mg PO 0700 tablet. 12/26/16 [Last Taken 07:00] Metoprolol Succinate [Toprol Xl] 50 mg PO TID 01/15/17 [Last Taken 01/15/17 08: 00] - History of Present Illness Narrative: Patient had lasix, aldactone, and digoxin d discontinued two days ago, since then she mejia had increasing shortness of breath. She denies any chest pain, no fever. She has a history of COPD and is on 3liter of oxygen, was admitted for CHF on and diuresed, also history of afib and PE on elliquis Review of Systems - Review of Systems Constitutional: Present: recent illness. Absent: fever, chills EYE: Absent: double vision ENT: Absent: nose congestion, sore throat Respiratory: Present: See HPI, shortness of breath Cardiology: Absent: chest pain Gastrointestinal/Abdominal: Absent: nausea, vomiting, abdominal pain Genitourinary: Present: no symptoms reported Neurological: Absent: headache - Patient's Past Medical History Patient History - Medical: GERD, Osteoarthritis, Osteoporosis, Rheumatoid Arthritis Patient History - Cardiac/Respiratory: Atrial Fibrillation, Coronary Heart Disease, CHF, COPD, Deep Vein Thrombosis, Hypertension, Hyperlipidemia, Pulmonary Embolism Patient History - Cancer: Breast Patient History - Surgical Procedures: Appendectomy, Cataracts, Cholecystectomy , Colonoscopy Patient History - Other: None LMP (females 10-50): Menopausal - Family History Father Family History - Medical: Osteoarthritis, Osteoporosis, Renal Disease Family History - Cardiac/Respiratory: Arrhythmias, Coronary Heart Disease, CHF, COPD, Deep Vein Thrombosis, Hypertension, Myocardial Infarction, Pulmonary Embolism Family History - Cancer: No pertinent family hx Mother Family History - Medical: Family History - Cardiac/Respiratory: Myocardial Infarction Family History - Cancer: No pertinent family hx - Social History Living Situations: home Abuse History: No History of abuse Psych History: No pertinent hx Alcohol Use: none Drug Use: none - Immunizations Immunizations Up to Date: Yes Hx Pneumococcal Vaccination: Yes History of Influenza Vaccine: Yes Physical Exam - Physical Exam General Appearance: Present: wd/wn, alert, no apparent distress Ears, Nose, Throat: Present: normal pharynx Respiratory: Present: no respiratory distress, no accessory muscle use, lungs clear, decreased breath sounds Cardiovascular/Chest: Present: regular rate, rhythm, no murmur Gastrointestinal/Abdominal: Present: normal bowel sounds, nontender, nondistended Extremity Exam: Present: pedal edema Neurological Exam: Present: alert, oriented, normal mood/affect Skin Exam: Present: normal color, warm/dry ED Progress - Results and Orders Patient's Lab Results:: I have reviewed the patient's lab results. - Vital Signs Patient's Vital Signs:: I have reviewed the patient's vital signs. Vital Signs: Vital Signs 01/15/17 01/15/17 01/15/17 11:58 12:06 12:09 Temperature 36.8 C 37.3 C Pulse Rate 128 H 128 H 131 H Respiratory 22 H 14 Rate Blood Pressure 142/91 127/105 O2 Sat by Pulse 95 94 Oximetry - EKG EKG: atrial fibrillation - with aberrant conduction, HR 136, unchanged from - 6/ 24 except for rate EKG read: Interp. by me - X-Ray X-Ray #1 X-Ray: chest - cardiomegalie, chronic changes, slightly worsened CHF Interpretation: Interp. by me - Progress/Reassessment Chief Complaint: Dyspnea Progress Note-Subjective: 01/15/17 13:19 discussed test results with patient after digoxin HR decreased form 120-130's down to 110-120's 01/15/17 13:[address] Rajan 01/15/17 13:35 discussed with joseph Green to admit for observation, gently diurese ( lasix 40mg IV), repeat digoxin in 6-8 hours Departure Clinical Impression: Atrial fibrillation with RVR CHF (congestive heart failure) Qualifiers: Congestive heart failure type: unspecified congestive heart failure type Congestive heart failure chronicity: chronic Qualified Code(s): I50.9 - Heart failure, unspecified Renal failure Qualifiers: Renal failure chronicity: acute on chronic Acute renal failure type: unspecified Chronic kidney disease stage: stage 3 (moderate) Qualified Code(s): N17.9 - Acute kidney failure, unspecified - Departure Disposition: [facility] Condition: Fair
--- OUTSIDE RECORDS SUMMARY | 2017-01-15 12:16 | XMS REPORT | Summary of Care ---
:1940 Author Organization [facility] Address [address] [place] [address] [address] [place] [address] Care Team Providers Name Role Phone Joel Skelton Ev Primary Care Physician Encounter Date(s): 12/20/16 - 12/20/16 [facility] [address] [id number] Discharge Disposition: 01 Discharged to Home or Self Care Attending Physician: Marty Emmanuel MD Referring Physician: Marty Emmanuel MD Vital Signs Most recent to oldest [Reference Range]: 1 Peripheral Pulse Rate [60-100 bpm] 122 bpm *HI* (12/20/16 2:13 PM) Blood Pressure [90-130/60-90 mmHg] 104/85mmHg (12/20/16 2:13 PM) Mean Arterial Pressure, Cuff 91 mmHg (12/20/16 2:13 PM) Most recent to oldest [Reference Range]: 1 Height/Length Measured 170 cm (12/20/16 2:13 PM) Weight Dosing 106.60 kg1 (12/20/16 2:24 PM) Weight Measured 106.6 kg (12/20/16 2:13 PM) BSA Measured 2.16 m2 (12/20/16 2:13 PM) Body Mass Index Measured 36.89 kg/m2 (12/20/16 2:13 PM) 1Result Comment: This result was because the dosing weight was either not entered or it is>30 days old. This result is based off: Weight Measured December 20, 2016 14:13:00 CDT by Kandis Cruz CMA Problem List Condition Effective Dates Status Health Status Informant Age-related cataract(Confirmed) Active Aortic insufficiency(Confirmed) Active Blind eye(Confirmed)1 Active Breast cancer(Confirmed) Active Congestive heart failure(Confirmed) Active COPD - Chronic obstructive pulmonary Active disease(Confirmed) Gastroesophageal reflux Active disease(Confirmed) H/O: glaucoma(Confirmed) Active Heart beats irregular(Confirmed) Active History of osteoporosis(Confirmed) Active Hypertensive disorder(Confirmed) Active Impaired mobility(Confirmed)2 11/07/13 Active Mastectomy(Confirmed)3 1978 Active Mastectomy and axillary 1979 Active clearance(Confirmed)4 Osteoarthritis(Confirmed) Active Premature beats(Confirmed)5 Active Rheumatic fever(Confirmed) Active Rheumatoid arthritis(Confirmed) Active Shortness of breath(Confirmed) Active Sleep apnea(Confirmed) Active Weakness(Confirmed) Active [id number] added by Discern Cyfgms8Egkjf dtos7Sdzt hjra8ksbuuygpk heartbeat Allergies, Adverse Reactions, Alerts Substance Reaction Severity Status Fluticasone Propionate1 hypertension Active Meperidine Hydrochloride2 Low BP Active sulfa drugs3 trouble breathing Active 1causes CSA1grqmdo low blood [id number] breathing Medications albuterol 0.63 mg/3 mL (0.021%) inhalation solution 3 mL, NEB, QID, PRN wheezing, 0 Refill(s) Start Date: 10/02/13 Stop Date: 12/25/13 Status: Completedalbuterol 2.5 mg/3 mL (0.083%) inhalation solution 3 mL, Inhale, q4hr, PRN as needed for wheezing, 496, # 540 mL, 0 Refill(s), [facility] [place] Special [facility]: 496 Start Date: 12/25/13 Stop Date: 11/24/15 Status: Completedalbuterol 2.5 mg/3 mL (0.083%) inhalation solution 3 mL, Inhale, q4hr, PRN as needed for wheezing, 0 Refill(s) Start Date: 12/25/13 Stop Date: 12/25/13 Status: Discontinuedalbuterol CFC free 90 mcg/inh inhalation aerosol See Instructions, 1-2 puffs every 4-6 h ours as needed, # 1 EA, 5 Refill(s), Start Date: 05/07/14 11:25:00 C[employer]AL COMM[employer]ICATION[employer] SPECIALIST, Pharmacy: [place], [place] Special Instructions: 1-2 puffs every 4-6 h ours as needed Start Date: 05/07/14 Stop Date: 1/28/15 Status: Completedamiodarone 200 mg oral tablet 1 tab(s), Oral, BID, # 60 tab(s), 0 Refill(s), Start Date: 11/25/15 16:40:00 CDT , Pharmacy: [facility] [id number] Start Date: 11/25/15 Stop Date: 12/03/15 Status: Discontinuedamiodarone 200 mg oral tablet 1 tab(s), Oral, BID, # 60 tab(s), 0 Refill(s), Start Date: 11/25/15 11:16:00 CDT , [facility] [id number] Start Date: 11/25/15 Stop Date: 11/25/15 Status: Discontinuedatorvastatin 20 mg oral tablet 1 tab(s), Oral, HS, 0 Refill(s) Start Date: 10/02/13 Stop Date: 05/27/14 Status: CompletedAtrovent 21 mcg/inh nasal spray 2 spray(s), Nasal, Daily, # 1 EA, 5 Refill(s), Start Date: 05/27/14 12:46:00 CENTRAL COMMUNICATIONS SPECIALIST , Pharmacy: [place], [place] Start Date: 05/27/14 Stop Date: 11/24/15 Status: CompletedAugmentin 875 mg-125 mg oral tablet 1 tab(s), Oral, q12hr interval, # 10 tab(s), 0 Refill(s), Pharmacy: [place], [place] Start Date: 04/09/14 Stop Date: 05/07/14 Status: CompletedBrovana 15 mcg/2 mL inhalation solution 1 EA, NEB, BID, DX: 496 COPD; not to be mixed w/ albuterol, # 60 EA, 3 Refill(s) Special Instructions: DX: 496 COPD; not to be mixed w/ albuterol Start Date: 10/07/13 Stop Date: 12/25/13 Status: CompletedBrovana 15 mcg/2 mL inhalation solution 2 mL, NEB, BID, dx 496, # 120 mL, 5 Refill(s), Pharmacy: [place], [place] Special Instructions: tremors and tachycardia Start Date: 04/23/14 Stop Date: 12/25/14 Status: Discontinuedbudesonide 0.25 mg/2 mL inhalation suspension 2 mL, NEB, BID, dx 496, # 120 mL, 5 Refill(s), [facility] [place] [place] Special Instructions: dx 496 Start Date: 04/09/14 Stop Date: 05/07/14 Status: Completedbudesonide 0.5 mg/2 mL inhalation suspension 2 mL, NEB, BID, COPD J44.9 Rinse mouth after, X 30 days, # 120 mL, 5 Refill(s) , Start Date: 03/30/15 13:21:13 CDT, Pharmacy: [facility] Special Instructions: COPD J44.9 Rinse mouth after Start Date: 03/30/15 Stop Date: 04/02/15 Status: Completedbudesonide 0.5 mg/2 mL inhalation suspension 2 mL, NEB, BID, COPD 496 DOSE CHANGE Rinse mouth after, # 120 mL, 5 Refill(s), Start Date: 05/07/14 11:23:00 CENTRAL COMMUNICATIONS SPECIALIST, [facility] [place] Special Instructions: COPD 496 DOSE CHANGE Rinse mouth after Start Date: 05/07/14 Stop Date: 08/01/14 Status: Completedbudesonide 0.5 mg/2 mL inhalation suspension 2 mL, NEB, BID, COPD J44.9 Rinse mouth after, # 120 mL, 5 Refill(s), Start Date : 04/02/15 9:06:29 CDT, Pharmacy: [facility] Special Instructions: COPD J44.9 Rinse mouth after Start Date: 04/02/15 Stop Date: 11/24/15 Status: Completedbudesonide 0.5 mg/2 mL inhalation suspension 2 mL, NEB, BID, COPD 496 DOSE CHANGE Rinse mouth after, X 30 days, # 120 mL, 5 Refill(s), Start Date: 08/01/14 8:13:15 CENTRAL COMMUNICATIONS SPECIALIST, Pharmacy: [facility] Special Instructions: COPD 496 DOSE CHANGE Rinse mouth after Start Date: 08/01/14 Stop Date: 03/30/15 Status: CompletedCT Oral Prep See Instructions, As directed, # 2 bottles, 0 Refill(s) Special Instructions: As directed Start Date: 03/20/14 Stop Date: 04/09/14 Status: Completeddigoxin 125 mcg (0.125 mg) oral tablet 1 tab(s), Oral, Daily, # 90 tab(s), 3 Refill(s), Start Date: 03/28/16 14:12:13 CDT, Pharmacy: [place], [place] Start Date: 03/28/16 Status: Ordereddigoxin 125 mcg (0.125 mg) oral tablet 1 tab(s), Oral, Daily, # 30 tab(s), 3 Refill(s), Start Date: 12/03/15 11:33:00 CDT, Pharmacy: [facility] [id number] Start Date: 12/03/15 Stop Date: 03/28/16 Status: CompletedDuoNeb 0.5 mg-2.5 mg/3 mL inhalation solution 3 mL, NEB, QID, 0 Refill(s), Start Date: 11/24/15 16:13:00 CDT Start Date: 11/24/15 Stop Date: 03/22/16 Status: CompletedEcotrin 325 mg oral enteric coated tablet 1 tab(s), Oral, Daily, 0 Refill(s) Start Date: 10/02/13 Stop Date: 11/08/13 Status: DiscontinuedEliquis 5 mg oral tablet 1 tab(s), Oral, BID, # 60 tab(s), 0 Refill(s), Start Date: 12/13/16 14:49:00 CDT Start Date: 12/13/16 Status: OrderedEliquis 5 mg oral tablet 1 tab(s), Oral, BID, # 60 tab(s), 0 Refill(s), Start Date: 11/11/16 14:51:00 CDT Start Date: 11/11/16 Stop Date: 11/11/16 Status: CompletedFlovent HFA 1 puff, Inhale, BID, PRN wheezing, 0 Refill(s), Start Date: 05/07/14 10:27:00 C[employer]AL COMM[employer]ICATION[employer] SPECIALIST Start Date: 05/07/14 Stop Date: 05/07/14 Status: Discontinuedfurosemide 40 mg oral tablet 1 tab(s), Oral, Daily, 0 Refill(s), Start Date: 05/27/14 11:40:00 CEN[employer]AL COMM[employer]ICATIONS SPECIALIST Start Date: 05/27/14 Stop Date: 05/27/14 Status: Discontinuedfurosemide 40 mg oral tablet 1 tab(s), Oral, Daily, 0 Refill(s) Start Date: 10/02/13 Stop Date: 11/06/13 Status: Completedfurosemide 40 mg oral tablet 1 tab(s), Oral, Daily, this is a dose increase, # 60 tab(s), 5 Refill(s), Start Date: 05/27/14 12:40:00 CENTRAL COMMUNICATIONS SPECIALIST, [facility]: [facility] [place] [place] Special Instructions: this is a dose increase Start Date: 05/27/14 Stop Date: 12/13/16 Status: Discontinuedfurosemide 80 mg oral tablet 1 tab(s), Oral, Daily, # 30 tab(s), 3 Refill(s), Start Date: 12/13/16 15:15:00 CDT, Pharmacy: [place], [place] Start Date: 12/13/16 Status: OrderedhydroCHLOROthiazide 25 mg oral tablet 1 tab(s), Oral, MonWedFri, # 13 tab(s), 6 Refill(s), Start Date: 12/20/16 16:22: 00 CDT, Pharmacy: [place], [place] Start Date: 12/20/16 Status: OrderedhydroCHLOROthiazide 25 mg oral tablet 1 tab(s), Oral, Daily, # 30 tab(s), 0 Refill(s), Start Date: 07/19/16 14:29:00 CENTRAL COMMUNICATIONS SPECIALIST, [facility] [place] Start Date: 07/19/16 Stop Date: 08/19/16 Status: CompletedhydroCHLOROthiazide 25 mg oral tablet 1 tab(s), Oral, MonWedFri, # 39 tab(s), 3 Refill(s), Start Date: 08/19/16 13:45: 24 CENTRAL COMMUNICATIONS SPECIALIST, Pharmacy: [place], [place] Start Date: 08/19/16 Stop Date: 12/13/16 Status: Discontinuedipratropium 0.02% inhalation solution 2.5 mL, NEB, QID, DX: COPD 496, # 120 EA, 3 Refill(s) Special Instructions: DX: COPD 496 Start Date: 10/07/13 Stop Date: 12/25/13 Status: Completedipratropium 500 mcg/2.5 mL inhalation solution 2.5 mL, Inhale, QID, J44.9, # 300 mL, 5 Refill(s), Start Date: 07/13/15 12:07: 00 CENTRAL COMM[employer]ICATIONS SPECIALIST, Pharmacy: [facility] [id number] Special Instructions: J44.9 Start Date: 07/13/15 Stop Date: 09/16/15 Status: Completedipratropium 500 mcg/2.5 mL inhalation solution 2.5 mL, NEB, QID, 0 Refill(s), Start Date: 11/24/15 16:17:00 CDT Start Date: 11/24/15 Stop Date: 12/09/15 Status: Completedipratropium 500 mcg/2.5 mL inhalation solution 2.5 mL, NEB, QID, J44.9, # 300 mL, 11 Refill(s), Start Date: 02/24/16 10:09:01 CDT, Pharmacy: [place], [place] Special Instructions: J44.9 Start Date: 02/24/16 Status: Orderedipratropium 500 mcg/2.5 mL inhalation solution 2.5 mL, NEB, QID, J44.9 *Call Pt with Singh check*, # 300 mL, 6 Refill(s), Start Date: 12/09/15 13:09:00 CDT, Pharmacy: [facility] [id number] Special Instructions: J44.9 *Call Pt with Singh check* Start Date: 12/09/15 Stop Date: 02/24/16 Status: Completedipratropium 500 mcg/2.5 mL inhalation solution 2.5 mL, NEB, BID, dx 496, # 150 mL, 5 Refill(s), Pharmacy: [place], [place] Special Instructions: dx 496 Start Date: 04/09/14 Stop Date: 05/27/15 Status: Completedipratropium 500 mcg/2.5 mL inhalation solution 2.5 mL, Inhale, QID, J44.9, # 900 mL, 2 Refill(s), Start Date: 09/16/15 13:08: 50 CDT, Pharmacy: [facility] [id number] Special Instructions: J44.9 Start Date: 09/16/15 Stop Date: 11/24/15 Status: Completedipratropium-albuterol 0.5 mg-2.5 mg/3 mLinhalation solution 3 mL, Inhale, QID, DX: J44.9, # 720 mL, 3 Refill(s), Start Date: 05/27/15 15:13: 00 CENTRAL COMMUNICATIONS SPECIALIST, Pharmacy: [facility] [id number] Special Instructions: DX: J44.9 Start Date: 05/27/15 Stop Date: 07/13/15 Status: Completedipratropium-albuterol 0.5 mg-2.5 mg/3 mLinhalation solution 3 mL, Inhale, QID, PRN as needed for shortness of breath or wheezing, Dx: COPD 496, # 360 mL, 2 Refill(s), Start Date: 12/25/14 9:23:00 CDT, Pharmacy: [place], [place] Special Instructions: Dx: COPD 496 Start Date: 12/25/14 Stop Date: 11/24/15 Status: CompletedLasix 40 mg oral tablet 1 tab(s), Oral, Daily, # 4 tab(s), 0 Refill(s), Pharmacy: [place], [place] Start Date: 10/21/13 Stop Date: 05/27/14 Status: CompletedLevaquin 500 mg oral tablet 1 tab(s), Oral, q24hr interval, Pt will check INR every other day, # 5 tab(s), 0 Refill(s), Start Date: 05/31/16 10:49:00 CENTRAL COMMUNICATIONS SPECIALIST, Pharmacy: [place], [place] Special Instructions: Pt will check INR every other day Start Date: 05/31/16 Stop Date: 07/19/16 Status: CompletedLevaquin 500 mg oral tablet 1 tab(s), Oral, q24hr interval, Pt voiced understanding to check INR every other day while on this antibiotic, # 5 tab(s), 0 Refill(s), Start Date: 13:08:00 CDT, Pharmacy: [facility] [id number] Special Instructions: Pt voiced understanding to check INR every other day while on this antibiotic Start Date: 12/09/15 Stop Date: 01/07/16 Status: CompletedLevaquin 500 mg oral tablet 1 tab(s), Oral, q24hr interval, # 7 tab(s), 0 Refill(s), Start Date: 05/27/14 12 :44:00 CENTRAL COMMUNICATIONS SPECIALIST, Pharmacy: [place], [place] Start Date: 05/27/14 Stop Date: 07/30/14 Status: CompletedLipitor Oral, HS, 0 Refill(s), Start Date: 05/27/14 10:23:00 CENTRAL COMMUNICATIONS SPECIALIST Start Date: 05/27/14 Stop Date: 12/25/14 Status: CompletedmetOLazone 2.5 mg oral tablet 1 tab(s), Oral, Daily, # 30 tab(s), 0 Refill(s), Start Date: 12/13/16 15:16:00 CDT, Pharmacy: [place], [place] Start Date: 12/13/16 Status: Orderedmetoprolol succinate 50 mg oral tablet, extended release 1 tab(s), Oral, Daily, # 90 tab(s), 6 Refill(s), Start Date: 05/27/15 15:51:00 CENTRAL COMMUNICATIONS SPECIALIST, other reason (Rx) Start Date: 05/27/15 Stop Date: 11/25/15 Status: Discontinuedmetoprolol tartrate 25 mg oral tablet 1 tab(s), Oral, BID, # 60 tab(s), 0 Refill(s), Start Date: 11/25/15 16:12:00 CDT , Pharmacy: [facility] [id number] Start Date: 11/25/15 Stop Date: 12/03/15 Status: DiscontinuedMetoprolol Tartrate 50 mg oral tablet 1.5 tab(s), Oral, BID, # 270 tab(s), 3 Refill(s), Start Date: 03/25/16 15:37:51 CDT, Pharmacy: [place], [place] Start Date: 03/25/16 Status: Orderedmetoprolol tartrate 50 mg oral tablet 1 tab(s), Oral, Daily, 0 Refill(s) Start Date: 10/02/13 Stop Date: 09/08/14 Status: DiscontinuedMetoprolol Tartrate 50 mg oral tablet 1 tab(s), Oral, BID, # 60 tab(s), 3 Refill(s), Start Date: 12/03/15 11:33:00 CDT , Pharmacy: [facility] [id number] Start Date: 12/03/15 Stop Date: 03/25/16 Status: Completedmetoprolol tartrate 50 mg oral tablet 1 tab(s), Oral, Daily, # 90 tab(s), 3 Refill(s), Start Date: 09/08/14 8:14:00 CDT, Pharmacy: [place], [place] Start Date: 09/08/14 Stop Date: 05/27/15 Status: DiscontinuedMucinex 600 mg oral tablet, extended release 2 tab(s), Oral, q12hr interval, # 120 tab(s), 0 Refill(s), Start Date: 12/10/15 16:56:00 CDT, other reason (Rx) Start Date: 12/10/15 Stop Date: 05/31/16 Status: Completedpotassium chloride 20 mEq oral tablet, extended release 1 tab(s), Oral, Daily, # 30 tab(s), 2 Refill(s), Start Date: 12/10/15 8:37:00 CDT, Pharmacy: [facility] [id number] Start Date: 12/10/15 Stop Date: 01/07/16 Status: Discontinuedpotassium chloride 20 mEq oral tablet, extended release 1 tab(s), Oral, Daily, # 30 tab(s), 0 Refill(s), Start Date: 12/13/16 15:17:00 CDT, Pharmacy: [place], [place] Start Date: 12/13/16 Status: OrderedpredniSONE 10 mg oral tablet See Instructions, [id number],92exy9a,00wer0e,06uxb5u, then DC, # 45 QS, 0 Refill(s), Start Date: 05/31/16 10:50:00 CENTRAL COMMUNICATIONS SPECIALIST, Pharmacy: [place], [place] Special Instructions: [id number],70emc6k,78slv9m, then DC Start Date: 05/31/16 Stop Date: 07/19/16 Status: CompletedpredniSONE 10 mg oral tablet See Instructions, take 50mg daily x 3d, 40mg daily x 3d, 30mg daily x 2d, 10mg daily x 2d then stop, # 39 tab(s), 0 Refill(s), Pharmacy: [place], [place] Special Instructions: take 50mg daily x 3d, 40mg daily x 3d, 30mg daily x 2d, 10mg daily x 2d then stop Start Date: 04/09/14 Stop Date: 05/07/14 Status: CompletedpredniSONE 10 mg oral tablet See Instructions, [id number],[id number],24kcw4o, 40zba0t,13mmr2e,then DC, # 44 QS, 0 Refill(s), Start Date: 12/09/15 13:08:00 CDT, Pharmacy: [facility] [id number] Special Instructions: [id number],[id number],76jht7x, 79opk8s,56mqg3e,then DC Start Date: 12/09/15 Stop Date: 01/07/16 Status: CompletedpredniSONE 10 mg oral tablet See Instructions, 50mg x 3 days, 40mg x 3, 30mg x 3, 20mg x 3, 10mg x 2, # 44 tab(s), 0 Refill(s), Start Date: 05/27/14 12:46:00 CENTRAL COMMUNICATIONS SPECIALIST, Pharmacy: [place], [place] Special Instructions: 50mg x 3 days, 40mg x 3, 30mg x 3, 20mg x 3, 10mg x 2 Start Date: 05/27/14 Stop Date: 07/18/14 Status: CompletedpredniSONE 10 mg oral tablet See Instructions, 50mg x 3 days, 40mg x 3, 30mg x 3, 20mg x 3, 10mg x 2, # 44 tab(s), 0 Refill(s), Start Date: 07/18/14 16:43:03 CENTRAL COMMUNICATIONS SPECIALIST, Pharmacy: [place], [place] Special Instructions: 50mg x 3 days, 40mg x 3, 30mg x 3, 20mg x 3, 10mg x 2 Start Date: 07/18/14 Stop Date: 12/25/14 Status: CompletedpredniSONE 10 mg oral tablet See Instructions, take 40mg daily for 3 days, 30mg daily for 3 days, 20mg daily for 3 days, 10mg daily for 3 days then stop. with food, # 30 tab(s), 0 Refill(s ), [facility]acy: [facility], [place] Special Instructions: take 40mg daily for 3 days, 30mg daily for 3 days, 20mg daily for 3 days, 10mg daily for 3 days then stop. with food Start Date: 10/21/13 Stop Date: 11/08/13 Status: DiscontinuedProAir HFA 1 puff(s), Inhale, QID, PRN shortness of breath or wheezing, 0 Refill(s) Start Date: 10/02/13 Stop Date: 05/07/14 Status: CompletedProAir HFA 90 mcg/inh inhalation aerosol 2 puff(s), Inhale, q4hr, PRN for wheezing, # 1 boxes, 0 Refill(s), Start Date: 09/18/15 10:53:00 CDT, other reason (Rx) Start Date: 09/18/15 Stop Date: 11/24/15 Status: CompletedProAir HFA 90 mcg/inh inhalation aerosol 1 puff(s), Inhale, QID, PRN as needed for wheezing, 0 Refill(s), Start Date: 16:14:00 CDT Start Date: 11/24/15 Stop Date: 12/09/15 Status: CompletedPulmicort Respules 0.5 mg/2 mL inhalation suspension 2 mL, NEB, BID, J44.9 *Call Pt with singh check*, # 120 mL, 6 Refill(s), Start Date: 12/09/15 13:09:00 CDT, [facility] [id number] Special Instructions: J44.9 *Call Pt with singh check* Start Date: 12/09/15 Status: OrderedSingulair 10 mg oral tablet 1 tab(s), Oral, qPM, # 30 tab(s), 0 Refill(s), Start Date: 12/25/14 16:28:00 CDT , Pharmacy: [place], [place] Start Date: 12/25/14 Stop Date: 05/27/15 Status: CompletedSodium Chloride, Inhalation 7% inhalation solution 4 mL, NEB, BID, J44.9; BID with Ipratropium, # 240 mL, 6 Refill(s), Start Date: 12/10/15 16:54:00 CDT, [facility] [id number] Special Instructions: J44.9; BID with Ipratropium Start Date: 12/10/15 Stop Date: 07/07/16 Status: OrderedTravatan Z 0.004% ophthalmic solution 1 drop(s), Eye-Right, HS, 0 Refill(s) Start Date: 10/07/13 Status: OrderedVentolin HFA 90 mcg/inh inhalation aerosol See Instructions, PRN shortness of breath or wheezing, 1 - 2 PUFFS EVERY 4 - 6 HOURS NEEDED, # 1 EA, 0 Refill(s), Start Date: 05/07/14 11:25:00 CENTRAL COMMUNICATIONS SPECIALIST, [id number] , 10/01/15 Special Instructions: 1 - 2 PUFFS EVERY 4 - 6 HOURS NEEDED Start Date: 05/07/14 Stop Date: 09/18/15 Status: Completedwarfarin 5 mg oral tablet 1 tab(s), Oral, Daily, DIRECTED, 0 Refill(s), Start Date: 11/24/15 12:27:00 CDT Special Instructions: PT clarified dosgae Start Date: 11/24/15 Stop Date: 11/24/15 Status: Discontinuedwarfarin 5 mg oral tablet 1 tab(s), Oral, Daily, start on 11/13, # 15 tab(s), 0 Refill(s), [facility] [place] [place] Special Instructions: start on 11/13 Start Date: 11/12/13 Stop Date: 12/25/13 Status: Completedwarfarin 6 mg oral tablet 1 tab(s), Oral, Daily, DIRECTED, # 90 tab(s), 0 Refill(s), Start Date: 13:24:00 CDT Special Instructions: DIRECTED Start Date: 11/24/15 Stop Date: 12/13/16 Status: Discontinuedwarfarin 6 mg oral tablet See Instructions, Levels checked at [facility]. Dr Skelton adjusting dose, pharmacist to take over, 0 Refill(s) Special Instructions: Surescripts clarified dosage Start Date: 12/25/13 Stop Date: 11/24/15 Status: DiscontinuedXarelto 15 mg oral tablet 1 tab(s), Oral, BID, 15mg BID for 21 days then 20mg daily, 0 Refill(s) Special Instructions: 15mg BID for 21 days then 20mg daily Start Date: 11/08/13 Stop Date: 04/09/14 Status: CompletedXopenex 0.63 mg/3 mL inhalation solution 3 mL, NEB, q4hr, PRN as needed for wheezing, J44.9 * Call Pt with singh check; CAN NOT have albuterol due to AFib, # 540 mL, 0 Refill(s), Start Date: 12/09/15 13:09:00 CDT, Pharmacy: [facility] [id number] Special Instructions: J44.9 * Call Pt with singh check;CAN NOT have albuterol due to AFib Start Date: 12/09/15 Stop Date: 03/22/16 Status: CompletedXopenex 0.63 mg/3 mL inhalation solution 3 mL, NEB, QID, PRN as needed for wheezing, # 168 mL, 0 Refill(s), Start Date: 05/31/16 10:52:00 CENTRAL COMMUNICATIONS SPECIALIST, Pharmacy: [place], [place] Start Date: 05/31/16 Stop Date: 07/19/16 Status: DiscontinuedXopenex HFA 45 mcg/inh inhalation aerosol 2 puff(s), Inhale, q4hr interval, PRN as needed for wheezing, Call Pt with singh check; CAN NOT have albuterol due to AFib, # 1 EA, 2 Refill(s), Start Date : 12/09/15 13:10:00 CDT, Pharmacy: [facility] [id number] Special Instructions: Call Pt with singh check; CAN NOT have albuterol due to AFib Start Date: 12/09/15 Stop Date: 07/19/16 Status: Discontinued Results No data available for this section Immunizations Vaccine Date Refusal Reason influenza virus vaccine, inactivated 04/13/15 influenza virus vaccine, inactivated 04/28/14 pneumococcal 13-valent conjugate vaccine 07/01/14 pneumococcal 23-polyvalent vaccine 07/03/06 Procedures Procedure Date Related Diagnosis Body Site Cardiac echo 08/2012 24 hour Holter tape 2004 Cardiac catherterization 1994 Appendectomy Bilateral mastectomy Cholecystocolostomy Colonoscopy - with polypectomy1 Finger fractures s/p surgery laser Sx left eye 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
--- OUTSIDE RECORDS SUMMARY | 2017-01-15 12:16 | XMS REPORT | Summary of Care ---
:1940 Author Organization [facility] Care Team Providers Name Role Phone SkeltonJoel Ev Primary Care Physician Encounter Date(s): 12/13/16 - 12/13/16 [facility] [address] [id number] Discharge Disposition: Discharged to Home or Self Care Attending Physician: Marty Emmanuel MD Vital Signs No data available for this section Problem List Condition Effective Dates Status Health Status Informant Age-related cataract(Confirmed) Active Aortic insufficiency(Confirmed) Active Blind eye(Confirmed)1 Active Breast cancer(Confirmed) Active Congestive heart failure(Confirmed) Active COPD - Chronic obstructive pulmonary Active disease(Confirmed) Gastroesophageal reflux Active disease(Confirmed) H/O: glaucoma(Confirmed) Active Heart beats irregular(Confirmed) Active History of osteoporosis(Confirmed) Active Hypertensive disorder(Confirmed) Active Impaired mobility(Confirmed)2 11/07/13 Active Mastectomy(Confirmed)3 1978 Active Mastectomy and axillary 1980 Active clearance(Confirmed)4 Osteoarthritis(Confirmed) Active Premature beats(Confirmed)5 Active Rheumatic fever(Confirmed) Active Rheumatoid arthritis(Confirmed) Active Shortness of breath(Confirmed) Active Sleep apnea(Confirmed) Active Weakness(Confirmed) Active [id number] added by Discern [id number] cgcm6Ovho [id number] heartbeat Allergies, Adverse Reactions, Alerts Substance Reaction Severity Status Fluticasone Propionate1 hypertension Active Meperidine Hydrochloride2 Low BP Active sulfa drugs3 trouble breathing Active 1causes [id number] low blood [id number] breathing Medications albuterol 0.63 mg/3 mL (0.021%) inhalation solution 3 mL, NEB, QID, PRN wheezing, 0 Refill(s) Start Date: 10/02/13 Stop Date: 12/25/13 Status: Completedalbuterol 2.5 mg/3 mL (0.083%) inhalation solution 3 mL, Inhale, q4hr, PRN as needed for wheezing, 496, # 540 mL, 0 Refill(s), [facility] [place] [place] Special Instructions: 496 Start Date: 12/25/13 Stop Date: 11/24/15 Status: Completedalbuterol 2.5 mg/3 mL (0.083%) inhalation solution 3 mL, Inhale, q4hr, PRN as needed for wheezing, 0 Refill(s) Start Date: 12/25/13 Stop Date: 12/25/13 Status: Discontinuedalbuterol CFC free 90 mcg/inh inhalation aerosol See Instructions, 1-2 puffs every 4-6 h ours as needed, # 1 EA, 5 Refill(s), Start Date: 05/07/14 11:25:00 [employer], [facility] [place] Special Instructions: 1-2 puffs every 4-6 h ours as needed Start Date: 05/07/14 Stop Date: 07/30/14 Status: Completedamiodarone 200 mg oral tablet 1 tab(s), Oral, BID, # 60 tab(s), 0 Refill(s), Start Date: 11/25/15 16:40:00 CDT , Pharmacy: [facility] [id number] Start Date: 11/25/15 Stop Date: 12/03/15 Status: Discontinuedamiodarone 200 mg oral tablet 1 tab(s), Oral, BID, # 60 tab(s), 0 Refill(s), Start Date: 11/25/15 11:16:00 CDT , Pharmacy: [facility] [id number] Start Date: 11/25/15 Stop Date: 11/25/15 Status: Discontinuedatorvastatin 20 mg oral tablet 1 tab(s), Oral, HS, 0 Refill(s) Start Date: 10/02/13 Stop Date: 05/27/14 Status: CompletedAtrovent 21 mcg/inh nasal spray 2 spray(s), Nasal, Daily, # 1 EA, 5 Refill(s), Start Date: 05/27/14 12:46:00 [employer] , [facility] [place] [place] Start Date: 05/27/14 Stop Date: 11/24/15 Status: CompletedAugmentin 875 mg-125 mg oral tablet 1 tab(s), Oral, q12hr interval, # 10 tab(s), 0 Refill(s), [facility]acy: [facility] [place] [place] Start Date: 04/09/14 Stop Date: 05/07/14 [...] 496, # 120 mL, 5 Refill(s), [facility] [place] [place] Special Instructions: tremors and tachycardia Start Date: 04/23/14 Stop Date: 12/25/14 Status: Discontinuedbudesonide 0.25 mg/2 mL inhalation suspension 2 mL, NEB, BID, dx 496, # 120 mL, 5 Refill(s), [facility] [place] [place] Special Instructions: dx 496 Start Date: 04/09/14 Stop Date: 05/07/14 Status: Completedbudesonide 0.5 mg/2 mL inhalation suspension 2 mL, NEB, BID, COPD J44.9 Rinse mouth after, X 30 days, # 120 mL, 5 Refill(s) , Start Date: 03/30/15 13:21:13 CDT, Pharmacy: [id number] Special Instructions: COPD J44.9 Rinse mouth after Start Date: 03/30/15 Stop Date: 04/02/15 Status: Completedbudesonide 0.5 mg/2 mL inhalation suspension 2 mL, NEB, BID, COPD 496 DOSE CHANGE Rinse mouth after, # 120 mL, 5 Refill(s), Start Date: 05/07/14 11:23:00 [employer], Pharmacy: [facility] [place], [place] Special Instructions: COPD 496 DOSE CHANGE Rinse mouth after Start Date: 05/07/14 Stop Date: 08/01/14 Status: Completedbudesonide 0.5 mg/2 mL inhalation suspension 2 mL, NEB, BID, COPD J44.9 Rinse mouth after, # 120 mL, 5 Refill(s), Start Date : 04/02/15 9:06:29 CDT, Pharmacy: [id number] Special Instructions: COPD J44.9 Rinse mouth after Start Date: 04/02/15 Stop Date: 11/24/15 Status: Completedbudesonide 0.5 mg/2 mL inhalation suspension 2 mL, NEB, BID, COPD 496 DOSE CHANGE Rinse mouth after, X 30 days, # 120 mL, 5 Refill(s), Start Date: 08/01/14 8:13:15 [employer], Pharmacy: [id number] Special Instructions: COPD 496 DOSE CHANGE Rinse mouth after Start Date: 08/01/14 Stop Date: 03/30/15 Status: CompletedCT Oral Prep See Instructions, As directed, # 2 bottles, 0 Refill(s) Special Instructions: As directed Start Date: 03/20/14 Stop Date: 04/09/14 Status: Completeddigoxin 125 mcg (0.125 mg) oral tablet 1 tab(s), Oral, Daily, # 90 tab(s), 3 Refill(s), Start Date: 03/28/16 14:12:13 CDT, Pharmacy: [facility], [place] Start Date: 03/28/16 Status: Ordereddigoxin 125 mcg (0.125 mg) oral tablet 1 tab(s), Oral, Daily, # 30 tab(s), 3 Refill(s), Start Date: 12/03/15 11:33:00 CDT, [facility] [id number] Start Date: 12/03/15 Stop Date: 03/28/16 Status: [...] wheezing, 0 Refill(s), Start Date: 05/07/14 10:27:00 [employer] Start Date: 05/07/14 Stop Date: 05/07/14 Status: Discontinuedfurosemide 40 mg oral tablet 1 tab(s), Oral, Daily, 0 Refill(s), Start Date: 05/27/14 11:40:00 [employer] Start Date: 05/27/14 Stop Date: 05/27/14 Status: Discontinuedfurosemide 40 mg oral tablet 1 tab(s), Oral, Daily, 0 Refill(s) Start Date: 10/02/13 Stop Date: 11/06/13 Status: Completedfurosemide 40 mg oral tablet 1 tab(s), Oral, Daily, this is a dose increase, # 60 tab(s), 5 Refill(s), Start Date: 05/27/14 12:40:00 [employer], [facility] [place] [place] Special Instructions: this is a dose increase Start Date: 05/27/14 Stop Date: 12/13/16 Status: Discontinuedfurosemide 80 mg oral tablet 1 tab(s), Oral, Daily, # 30 tab(s), 3 Refill(s), Start Date: 12/13/16 15:15:00 CDT, Pharmacy: [place], [place] Start Date: 12/13/16 Status: OrderedhydroCHLOROthiazide 25 mg oral tablet 1 tab(s), Oral, Daily, # 30 tab(s), 0 Refill(s), Start Date: 07/19/16 14:29:00 [employer], [facility] [place] [place] Start Date: 07/19/16 Stop Date: 08/19/16 Status: CompletedhydroCHLOROthiazide 25 mg oral tablet 1 tab(s), Oral, MonWedFri, # 39 tab(s), 3 Refill(s), Start Date: 08/19/16 13:45: 24 [employer], [facility] [place] Start Date: 08/19/16 Stop Date: 12/13/16 Status: Discontinuedipratropium 0.02% inhalation solution 2.5 mL, NEB, QID, DX: COPD 496, # 120 EA, 3 Refill(s) Special Instructions: DX: COPD 496 Start Date: 10/07/13 Stop Date: 12/25/13 Status: Completedipratropium 500 mcg/2.5 mL inhalation solution 2.5 mL, Inhale, QID, J44.9, # 300 mL, 5 Refill(s), Start Date: 07/13/15 12:07: 00 [employer], Pharmacy: [facility] [id number] Special Instructions: J44.9 Start Date: 07/13/15 Stop Date: 09/16/15 Status: Completedipratropium 500 mcg/2.5 mL inhalation solution 2.5 mL, NEB, QID, 0 Refill(s), Start Date: 11/24/15 16:17:00 CDT Start Date: 11/24/15 Stop Date: 12/09/15 Status: Completedipratropium 500 mcg/2.5 mL inhalation solution 2.5 mL, NEB, QID, J44.9, # 300 mL, 11 Refill(s), Start Date: 02/24/16 10:09:01 CDT, Pharmacy: [facility] [place] Special Instructions: J44.9 Start Date: 02/24/16 Status: Orderedipratropium 500 mcg/2.5 mL inhalation solution 2.5 mL, NEB, QID, J44.9 *Call Pt with Singh check*, # 300 mL, 6 Refill(s), Start Date: 12/09/15 13:09:00 CDT, Pharmacy: [facility] [id number] Special Instructions: J44.9 *Call Pt with Singh check* Start Date: 12/09/15 Stop Date: 02/24/16 Status: Completedipratropium 500 mcg/2.5 mL inhalation solution 2.5 mL, NEB, BID, dx 496, # 150 mL, 5 Refill(s), Pharmacy: [facility] [place], [place] Special Instructions: dx 496 Start Date: 04/09/14 Stop Date: 05/27/15 Status: Completedipratropium 500 mcg/2.5 mL inhalation solution 2.5 mL, Inhale, QID, J44.9, # 900 mL, 2 Refill(s), Start Date: 09/16/15 13:08: 50 CDT, Pharmacy: [facility] [id number] Special Instructions: J44.9 Start Date: 09/16/15 Stop Date: 11/24/15 Status: Completedipratropium-albuterol 0.5 mg-2.5 mg/3 mLinhalation solution 3 mL, Inhale, QID, DX: J44.9, # 720 mL, 3 Refill(s), Start Date: 05/27/15 15:13: 00 [employer], Pharmacy: [facility] Special Instructions: DX: J44.9 Start Date: 05/27/15 Stop Date: 07/13/15 Status: Completedipratropium-albuterol 0.5 mg-2.5 mg/3 mLinhalation solution 3 mL, Inhale, QID, PRN as needed for shortness of breath or wheezing, Dx: COPD 496, # 360 mL, 2 Refill(s), Start Date: 12/25/14 9:23:00 CDT, Pharmacy: [facility] [place], [place] Special Instructions: Dx: COPD 496 Start Date: 12/25/14 Stop Date: 11/24/15 Status: CompletedLasix 40 mg oral tablet 1 tab(s), Oral, Daily, # 4 tab(s), 0 Refill(s), Pharmacy: [facility] [place] Start Date: 10/21/13 Stop Date: 05/27/14 Status: CompletedLevaquin 500 mg oral tablet 1 tab(s), Oral, q24hr interval, Pt will check INR every other day, # 5 tab(s), 0 Refill(s), Start Date: 05/31/16 10:49:00 [employer], [facility] [place] [place] Special Instructions: Pt will check INR every other day Start Date: 05/31/16 Stop Date: 07/19/16 Status: CompletedLevaquin 500 mg oral tablet 1 tab(s), Oral, q24hr interval, Pt voiced understanding to check INR every other day while on this antibiotic, # 5 tab(s), 0 Refill(s), Start Date: 13:08:00 CDT, Pharmacy: [facility] [id number] Special Instructions: Pt voiced understanding to check INR every other day while on this antibiotic Start Date: 12/09/15 Stop Date: 01/07/16 Status: CompletedLevaquin 500 mg oral tablet 1 tab(s), Oral, q24hr interval, # 7 tab(s), 0 Refill(s), Start Date: 05/27/14 12 :44:00 [employer], [facility] [place] [place] Start Date: 05/27/14 Stop Date: 07/30/14 Status: CompletedLipitor Oral, HS, 0 Refill(s), Start Date: 05/27/14 10:23:00 [employer] Start Date: 05/27/14 Stop Date: 12/25/14 Status: CompletedmetOLazone 2.5 mg oral tablet 1 tab(s), Oral, Daily, # 30 tab(s), 0 Refill(s), Start Date: 12/13/16 15:16:00 CDT, [facility] [place] Start Date: 12/13/16 Status: Orderedmetoprolol succinate 50 mg oral tablet, extended release 1 tab(s), Oral, Daily, # 90 tab(s), 6 Refill(s), Start Date: 05/27/15 15:51:00 [employer], other reason (Rx) Start Date: 05/27/15 Stop Date: 11/25/15 Status: Discontinuedmetoprolol tartrate 25 mg oral tablet 1 tab(s), Oral, BID, # 60 tab(s), 0 Refill(s), Start Date: 11/25/15 16:12:00 CDT , Pharmacy: [facility] [id number] Start Date: 11/25/15 Stop Date: 12/03/15 Status: DiscontinuedMetoprolol Tartrate 50 mg oral tablet 1.5 tab(s), Oral, BID, # 270 tab(s), 3 Refill(s), Start Date: 03/25/16 15:37:51 CDT, Pharmacy: [place], [place] Start Date: 03/25/16 Status: Orderedmetoprolol tartrate 50 mg oral tablet 1 tab(s), Oral, Daily, 0 Refill(s) Start Date: 10/02/13 Stop Date: 09/08/14 Status: DiscontinuedMetoprolol Tartrate 50 mg oral tablet 1 tab(s), Oral, BID, # 60 tab(s), 3 Refill(s), Start Date: 12/03/15 11:33:00 CDT , Pharmacy: [facility] [id number] Start Date: 12/03/15 Stop Date: 03/25/16 Status: Completedmetoprolol tartrate 50 mg oral tablet 1 tab(s), Oral, Daily, # 90 tab(s), 3 Refill(s), Start Date: 09/08/14 8:14:00 CDT, Pharmacy: [place], [place] Start Date: 09/08/14 Stop Date: 05/27/15 Status: DiscontinuedMucinex 600 mg oral tablet, extended release 2 tab(s), Oral, q12hr interval, # 120 tab(s), 0 Refill(s), Start Date: 12/10/15 16:56:00 CDT, other reason (Rx) Start Date: 12/10/15 Stop Date: 05/31/16 Status: Completedpotassium chloride 20 mEq oral tablet, extended release 1 tab(s), Oral, Daily, # 30 tab(s), 2 Refill(s), Start Date: 12/10/15 8:37:00 CDT, Pharmacy: [facility] [id number] Start Date: 12/10/15 Stop Date: 01/07/16 Status: Discontinuedpotassium chloride 20 mEq oral tablet, extended release 1 tab(s), Oral, Daily, # 30 tab(s), 0 Refill(s), Start Date: 12/13/16 15:17:00 CDT, Pharmacy: [place], [place] Start Date: 12/13/16 Status: OrderedpredniSONE 10 mg oral tablet See Instructions, [id number],80yjs5l,59kri7j,85vex2d, then DC, # 45 QS, 0 Refill(s), Start Date: 05/31/16 10:50:00 [employer], Pharmacy: [place], [place] Special Instructions: [id number],[id number],14wpn7k,41vqp8b,12fqi9q, then DC Start Date: 05/31/16 Stop Date: 07/19/16 Status: CompletedpredniSONE 10 mg oral tablet See Instructions, take 50mg daily x 3d, 40mg daily x 3d, 30mg daily x 2d, 10mg daily x 2d then stop, # 39 tab(s), 0 Refill(s), Pharmacy: [place], [place] Special Instructions: take 50mg daily x 3d, 40mg daily x 3d, 30mg daily x 2d, 10mg daily x 2d then stop Start Date: 04/09/14 Stop Date: 05/07/14 Status: CompletedpredniSONE 10 mg oral tablet See Instructions, [id number],94uvj3c,35sqx7q, 45uce7u,73chb1q,then DC, # 44 QS, 0 Refill(s), Start Date: 12/09/15 13:08:00 CDT, Pharmacy: [facility] [id number] Special Instructions: [id number],49qoh5f,65vke1j, 50izo8g,45czv0a,then DC Start Date: 12/09/15 Stop Date: 01/07/16 Status: CompletedpredniSONE 10 mg oral tablet See Instructions, 50mg x 3 days, 40mg x 3, 30mg x 3, 20mg x 3, 10mg x 2, # 44 tab(s), 0 Refill(s), Start Date: 05/27/14 12:46:00 [employer], Pharmacy: [place], [place] Special Instructions: 50mg x 3 days, 40mg x 3, 30mg x 3, 20mg x 3, 10mg x 2 Start Date: 05/27/14 Stop Date: 07/18/14 Status: CompletedpredniSONE 10 mg oral tablet See Instructions, 50mg x 3 days, 40mg x 3, 30mg x 3, 20mg x 3, 10mg x 2, # 44 tab(s), 0 Refill(s), Start Date: 07/18/14 16:43:03 WE[employer]ING [employer], Pharmacy: [place], [place] Special Instructions: 50mg x 3 days, [...] # 30 tab(s), 0 Refill(s ), Pharmacy: [place], [place] Special Instructions: take 40mg daily for [...] Refill(s), Start Date: 12/09/15 13:09:00 CDT, Pharmacy: [facility] [id number] Special Instructions: J44.9 *Call Pt with singh check* Start Date: 12/09/15 Status: OrderedSingulair 10 mg oral tablet 1 tab(s), Oral, qPM, # 30 tab(s), 0 Refill(s), Start Date: 12/25/14 16:28:00 CDT , [facility]acy: [facility] [place] Start Date: 12/25/14 Stop Date: 05/27/15 Status: CompletedSodium Chloride, Inhalation 7% inhalation solution 4 mL, NEB, BID, J44.9; BID with Ipratropium, # 240 mL, 6 Refill(s), Start Date: 12/10/15 16:54:00 CDT, Pharmacy: [facility] [id number] Special Instructions: J44.9; BID with Ipratropium Start Date: 12/10/15 Stop Date: 07/07/16 Status: OrderedTravatan Z 0.004% ophthalmic solution 1 drop(s), Eye-Right, HS, 0 Refill(s) Start Date: 10/07/13 Status: OrderedVentolin HFA 90 mcg/inh inhalation aerosol See Instructions, PRN shortness of breath or wheezing, 1 - 2 PUFFS EVERY 4 - 6 HOURS NEEDED, # 1 EA, 0 Refill(s), Start Date: 05/07/14 11:25:00 [employer]ING [employer]ER, [id number] , 10/01/15 Special Instructions: 1 - 2 [...] 11/13, # 15 tab(s), 0 Refill(s), Pharmacy: [place], [place] Special Instructions: start on 11/13 Start Date: 11/12/13 Stop Date: 12/25/13 Status: Completedwarfarin 6 mg oral tablet 1 tab(s), Oral, Daily, DIRECTED, # 90 tab(s), 0 Refill(s), Start Date: 13:24:00 CDT Special Instructions: DIRECTED Start Date: 11/24/15 Stop Date: 12/13/16 Status: Discontinuedwarfarin 6 mg oral tablet See Instructions, Levels checked at [facility]. Dr Skelton adjusting dose, pharmacist to [...] Refill(s), Start Date: 12/09/15 13:09:00 CDT, [facility] [id number] Special Instructions: J44.9 * Call Pt with singh check;CAN NOT have albuterol due to AFib Start Date: 12/09/15 Stop Date: 03/22/16 Status: CompletedXopenex 0.63 mg/3 mL inhalation solution 3 mL, NEB, QID, PRN as needed for wheezing, # 168 mL, 0 Refill(s), Start Date: 05/31/16 10:52:00 [employer]ING [employer], Pharmacy: [place], [place] Start Date: 05/31/16 Stop Date: 07/19/16 Status: DiscontinuedXopenex HFA 45 mcg/inh inhalation aerosol 2 puff(s), Inhale, q4hr interval, PRN as needed for wheezing, Call Pt with singh check; CAN NOT have albuterol due to AFib, # 1 EA, 2 Refill(s), Start Date : 12/09/15 13:10:00 CDT, Pharmacy: [facility] [id number] Special Instructions: Call Pt with singh check; CAN NOT have albuterol due to AFib Start Date: 12/09/15 Stop Date: 07/19/16 Status: Discontinued Results Patient Viewable Results Most recent to oldest [Reference Range]: 1 Sodium Lvl [135-144 mEq/L] 145 mEq/L *HI* (12/13/16 4:02 PM) Potassium Lvl [3.3-4.8 mEq/L] 4.5 mEq/L (12/13/16 4:02 PM) Chloride Lvl [98-107 mEq/L] 106 mEq/L (12/13/16 4:02 PM) Bicarbonate Lvl [22-30 mmol/L] 29 mmol/L (12/13/16 4:02 PM) Anion Gap [10.0-20.0] 14.5 (12/13/16 4:02 PM) Glucose Lvl [70-108 mg/dL] 95 mg/dL (12/13/16 4:02 PM) BUN [7-21 mg/dL] 32 mg/dL *HI* (12/13/16 4:02 PM) Creatinine Lvl [0.50-1.20 mg/dL] 1.17 mg/dL (12/13/16 4:02 PM) BUN/Creat Ratio 27.4 *NA* (12/13/16 4:02 PM) eGFR AA [>=60] 54 *LOW* (12/13/16 4:02 PM) eGFR CARON [>=60] 45 *LOW* (12/13/16 4:02 PM) Calcium Lvl [8.6-10.2 mg/dL] 10.3 mg/dL *HI* (12/13/16 4:02 PM) Estimated Creatinine Clearance 50.14 mL/min (12/13/16 5:39 PM) Immunizations Vaccine Date Refusal Reason influenza virus [...] tumor resection 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
--- OUTSIDE RECORDS SUMMARY | 2017-01-15 12:17 | XMS REPORT | Summary of Care ---
:1940 Author Organization [facility] Address [address] [place] [address] Care Team Providers Name Role Phone Joel Skelton Ev Primary Care Physician Encounter Date(s): 12/06/16 - 12/06/16 [facility], [address] [place], [place] [address] Discharge Disposition: 01 Discharged to Home or Self Care Attending Physician: Soledad Guerrero MD Vital Signs No data available for [...] breath(Confirmed) Active Sleep apnea(Confirmed) Active Weakness(Confirmed) Active [id number] added by Discern [id number] [id number] heartbeat Allergies, Adverse Reactions, Alerts Substance Reaction Severity Status Fluticasone Propionate1 hypertension Active Meperidine Hydrochloride2 Low BP Active sulfa drugs3 trouble breathing Active 1causes [id number] low blood [id number] breathing Medications albuterol 0.63 mg/3 mL (0.021%) inhalation solution 3 mL, NEB, QID, PRN wheezing, 0 Refill(s) Start Date: 10/02/13 Stop Date: 12/25/13 Status: Completedalbuterol 2.5 mg/3 mL (0.083%) inhalation solution 3 mL, Inhale, q4hr, PRN as needed for wheezing, 496, # 540 mL, 0 Refill(s), Pharmacy: [place], [place] Special Instructions: 496 Start Date: 12/25/13 Stop Date: 11/24/15 Status: Completedalbuterol 2.5 mg/3 mL (0.083%) inhalation solution 3 mL, Inhale, q4hr, PRN as needed for wheezing, 0 Refill(s) Start Date: 12/25/13 Stop Date: 12/25/13 Status: Discontinuedalbuterol CFC free 90 mcg/inh inhalation aerosol See Instructions, 1-2 puffs every 4-6 h ours as needed, # 1 EA, 5 Refill(s), Start Date: 05/07/14 11:25:00 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, Pharmacy: [place], [place] Special Instructions: 1-2 puffs every 4-6 h ours as needed Start Date: 05/07/14 Stop Date: 07/30/14 Status: Completedamiodarone 200 mg oral tablet 1 tab(s), Oral, BID, # 60 tab(s), 0 Refill(s), Start Date: 11/25/15 16:40:00 CDT , Pharmacy: [facility] [id number] Start Date: 11/25/15 Stop Date: 12/03/15 Status: Discontinuedamiodarone 200 mg oral tablet 1 tab(s), Oral, BID, # 60 tab(s), 0 Refill(s), Start Date: 11/25/15 11:16:00 CDT , Pharmacy: [facility] [id number] Start Date: 11/25/15 Stop Date: 11/25/15 Status: Discontinuedatorvastatin 20 mg oral tablet 1 tab(s), Oral, HS, 0 Refill(s) Start Date: 10/02/13 Stop Date: 05/27/14 Status: CompletedAtrovent 21 mcg/inh nasal spray 2 spray(s), Nasal, Daily, # 1 EA, 5 Refill(s), Start Date: 05/27/14 12:46:00 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 , Pharmacy: [place], [place] Start Date: 05/27/14 Stop Date: 11/24/15 Status: CompletedAugmentin 875 mg-125 mg oral tablet 1 tab(s), Oral, q12hr interval, # 10 tab(s), 0 Refill(s), Pharmacy: [place], [place] Start Date: 04/09/14 Stop Date: 05/07/14 [...] 496, # 120 mL, 5 Refill(s), Pharmacy: [place], [place] Special Instructions: tremors and tachycardia Start Date: 04/23/14 Stop Date: 12/25/14 Status: Discontinuedbudesonide 0.25 mg/2 mL inhalation suspension 2 mL, NEB, BID, dx 496, # 120 mL, 5 Refill(s), Pharmacy: [place], [place] Special Instructions: dx 496 Start Date: 04/09/14 Stop Date: 05/07/14 Status: Completedbudesonide 0.5 mg/2 mL inhalation suspension 2 mL, NEB, BID, COPD J44.9 Rinse mouth after, X 30 days, # 120 mL, 5 Refill(s) , Start Date: 03/30/15 13:21:13 CDT, Pharmacy: [id number] Special Instructions: COPD J44.9 Rinse mouth after Start Date: 03/30/15 Stop Date: 04/02/15 Status: Completedbudesonide 0.5 mg/2 mL inhalation suspension 2 mL, NEB, BID, COPD 496 DOSE CHANGE Rinse mouth after, # 120 mL, 5 Refill(s), Start Date: 05/07/14 11:23:00 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, Pharmacy: [place], [place] Special Instructions: COPD 496 DOSE CHANGE Rinse mouth after Start Date: 05/07/14 Stop Date: 08/01/14 Status: Completedbudesonide 0.5 mg/2 mL inhalation suspension 2 mL, NEB, BID, COPD J44.9 Rinse mouth after, # 120 mL, 5 Refill(s), Start Date : 04/02/15 9:06:29 CDT, Pharmacy: [id number] Special Instructions: COPD J44.9 Rinse mouth after Start Date: 04/02/15 Stop Date: 11/24/15 Status: Completedbudesonide 0.5 mg/2 mL inhalation suspension 2 mL, NEB, BID, COPD 496 DOSE CHANGE Rinse mouth after, X 30 days, # 120 mL, 5 Refill(s), Start Date: 08/01/14 8:13:15 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, Pharmacy: [id number] Special Instructions: COPD 496 DOSE CHANGE Rinse mouth after Start Date: 08/01/14 Stop Date: 03/30/15 Status: CompletedCT Oral Prep See Instructions, As directed, # 2 bottles, 0 Refill(s) Special Instructions: As directed Start Date: 03/20/14 Stop Date: 04/09/14 Status: Completeddigoxin 125 mcg (0.125 mg) oral tablet 1 tab(s), Oral, Daily, # 90 tab(s), 3 Refill(s), Start Date: 03/28/16 14:12:13 CDT, [place] Start Date: 03/28/16 Status: Ordereddigoxin 125 mcg (0.125 mg) oral tablet 1 tab(s), Oral, Daily, # 30 tab(s), 3 Refill(s), Start Date: 12/03/15 11:33:00 CDT, [facility] [id number] Start Date: 12/03/15 Stop Date: 03/28/16 Status: [...] wheezing, 0 Refill(s), Start Date: 05/07/14 10:27:00 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 Start Date: 05/07/14 Stop Date: 05/07/14 Status: Discontinuedfurosemide 40 mg oral tablet 1 tab(s), Oral, Daily, 0 Refill(s), Start Date: 05/27/14 11:40:00 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 Start Date: 05/27/14 Stop Date: 05/27/14 Status: Discontinuedfurosemide 40 mg oral tablet 1 tab(s), Oral, Daily, 0 Refill(s) Start Date: 10/02/13 Stop Date: 11/06/13 Status: Completedfurosemide 40 mg oral tablet 1 tab(s), Oral, Daily, this is a dose increase, # 60 tab(s), 5 Refill(s), Start Date: 05/27/14 12:40:00 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, Pharmacy: [facility] [place], [place] Special Instructions: this is a dose increase Start Date: 05/27/14 Status: OrderedhydroCHLOROthiazide 25 mg oral tablet 1 tab(s), Oral, Daily, # 30 tab(s), 0 Refill(s), Start Date: 07/19/16 14:29:00 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, Pharmacy: [facility] [place], [place] Start Date: 07/19/16 Stop Date: 08/19/16 Status: CompletedhydroCHLOROthiazide 25 mg oral tablet 1 tab(s), Oral, MonWedFri, # 39 tab(s), 3 Refill(s), Start Date: 08/19/16 13:45: 24 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, Pharmacy: [place], [place] Start Date: 08/19/16 Status: Orderedipratropium 0.02% inhalation solution 2.5 mL, NEB, QID, DX: COPD 496, # 120 EA, 3 Refill(s) Special Instructions: DX: COPD 496 Start Date: 10/07/13 Stop Date: 12/25/13 Status: Completedipratropium 500 mcg/2.5 mL inhalation solution 2.5 mL, Inhale, QID, J44.9, # 300 mL, 5 Refill(s), Start Date: 07/13/15 12:07: 00 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, Pharmacy: [facility] [id number] Special Instructions: J44.9 Start Date: 07/13/15 Stop Date: 09/16/15 Status: Completedipratropium 500 mcg/2.5 mL inhalation solution 2.5 mL, NEB, QID, 0 Refill(s), Start Date: 11/24/15 16:17:00 CDT Start Date: 11/24/15 Stop Date: 12/09/15 Status: Completedipratropium 500 mcg/2.5 mL inhalation solution 2.5 mL, NEB, QID, J44.9, # 300 mL, 11 Refill(s), Start Date: 02/24/16 10:09:01 CDT, Pharmacy: [place], [place] Special Instructions: J44.9 Start Date: 02/24/16 Status: Orderedipratropium 500 mcg/2.5 mL inhalation solution 2.5 mL, NEB, QID, J44.9 *Call Pt with Singh check*, # 300 mL, 6 Refill(s), Start Date: 12/09/15 13:09:00 CDT, Pharmacy: [facility] [id number] Special Instructions: J44.9 *Call Pt with Singh check* Start Date: 12/09/15 Stop Date: 02/24/16 Status: Completedipratropium 500 mcg/2.5 mL inhalation solution 2.5 mL, NEB, BID, dx 496, # 150 mL, 5 Refill(s), Pharmacy: [place], [place] Special Instructions: dx 496 Start Date: 04/09/14 Stop Date: 05/27/15 Status: Completedipratropium 500 mcg/2.5 mL inhalation solution 2.5 mL, Inhale, QID, J44.9, # 900 mL, 2 Refill(s), Start Date: 09/16/15 13:08: 50 CDT, Pharmacy: [facility] [id number] Special Instructions: J44.9 Start Date: 09/16/15 Stop Date: 11/24/15 Status: Completedipratropium-albuterol 0.5 mg-2.5 mg/3 mLinhalation solution 3 mL, Inhale, QID, DX: J44.9, # 720 mL, 3 Refill(s), Start Date: 05/27/15 15:13: 00 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, Pharmacy: [facility] [id number] Special Instructions: DX: J44.9 Start Date: 05/27/15 Stop Date: 07/13/15 Status: Completedipratropium-albuterol 0.5 mg-2.5 mg/3 mLinhalation solution 3 mL, Inhale, QID, PRN as needed for shortness of breath or wheezing, Dx: COPD 496, # 360 mL, 2 Refill(s), Start Date: 12/25/14 9:23:00 CDT, [facility] [place] [facility]: Dx: COPD 496 Start Date: 12/25/14 Stop Date: 11/24/15 Status: CompletedLasix 40 mg oral tablet 1 tab(s), Oral, Daily, # 4 tab(s), 0 Refill(s), [place] Start Date: 10/21/13 Stop Date: 05/27/14 Status: CompletedLevaquin 500 mg oral tablet 1 tab(s), Oral, q24hr interval, Pt will check INR every other day, # 5 tab(s), 0 Refill(s), Start Date: 05/31/16 10:49:00 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, [facility] [place] Special Instructions: Pt will check INR every other day Start Date: 05/31/16 Stop Date: 07/19/16 Status: CompletedLevaquin 500 mg oral tablet 1 tab(s), Oral, q24hr interval, Pt voiced understanding to check INR every other day while on this antibiotic, # 5 tab(s), 0 Refill(s), Start Date: 13:08:00 CDT, Pharmacy: [facility] [id number] Special Instructions: Pt voiced understanding to check INR every other day while on this antibiotic Start Date: 12/09/15 Stop Date: 01/07/16 Status: CompletedLevaquin 500 mg oral tablet 1 tab(s), Oral, q24hr interval, # 7 tab(s), 0 Refill(s), Start Date: 05/27/14 12 :44:00 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, [facility] [place] [place] Start Date: 05/27/14 Stop Date: 07/30/14 Status: CompletedLipitor Oral, HS, 0 Refill(s), Start Date: 05/27/14 10:23:00 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 Start Date: 05/27/14 Stop Date: 12/25/14 Status: Completedmetoprolol succinate 50 mg oral tablet, extended release 1 tab(s), Oral, Daily, # 90 tab(s), 6 Refill(s), Start Date: 05/27/15 15:51:00 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, other reason (Rx) Start Date: 05/27/15 Stop Date: 11/25/15 Status: Discontinuedmetoprolol tartrate 25 mg oral tablet 1 tab(s), Oral, BID, # 60 tab(s), 0 Refill(s), Start Date: 11/25/15 16:12:00 CDT , [facility] [id number] Start Date: 11/25/15 Stop Date: 12/03/15 Status: DiscontinuedMetoprolol Tartrate 50 mg oral tablet 1.5 tab(s), Oral, BID, # 270 tab(s), 3 Refill(s), Start Date: 03/25/16 15:37:51 CDT, Pharmacy: [place], [place] Start Date: 03/25/16 Status: Orderedmetoprolol tartrate 50 mg oral tablet 1 tab(s), Oral, Daily, 0 Refill(s) Start Date: 10/02/13 Stop Date: 09/08/14 Status: DiscontinuedMetoprolol Tartrate 50 mg oral tablet 1 tab(s), Oral, BID, # 60 tab(s), 3 Refill(s), Start Date: 12/03/15 11:33:00 CDT , Pharmacy: [facility] [id number] Start Date: 12/03/15 Stop Date: 03/25/16 Status: Completedmetoprolol tartrate 50 mg oral tablet 1 tab(s), Oral, Daily, # 90 tab(s), 3 Refill(s), Start Date: 09/08/14 8:14:00 CDT, [facility] [place] Start Date: 09/08/14 Stop Date: 05/27/15 Status: DiscontinuedMucinex 600 mg oral tablet, extended release 2 tab(s), Oral, q12hr interval, # 120 tab(s), 0 Refill(s), Start Date: 12/10/15 16:56:00 CDT, other reason (Rx) Start Date: 12/10/15 Stop Date: 05/31/16 Status: Completedpotassium chloride 20 mEq oral tablet, extended release 1 tab(s), Oral, Daily, # 30 tab(s), 2 Refill(s), Start Date: 12/10/15 8:37:00 CDT, Pharmacy: [facility] [id number] Start Date: 12/10/15 Stop Date: 01/07/16 Status: DiscontinuedpredniSONE 10 mg oral tablet See Instructions, [id number],13lze7z,84gqm8y,25ske0e,95roz4n, then DC, # 45 QS, 0 Refill(s), Start Date: 05/31/16 10:50:00 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, [facility] [place] Special Instructions: [id number],81lez3l,72ljw7f,25jyi5i,99bsr4d, then DC Start Date: 05/31/16 Stop Date: 07/19/16 Status: CompletedpredniSONE 10 mg oral tablet See Instructions, take 50mg daily x 3d, 40mg daily x 3d, 30mg daily x 2d, 10mg daily x 2d then stop, # 39 tab(s), 0 Refill(s), Pharmacy: [place], [place] Special Instructions: take 50mg daily x 3d, 40mg daily x 3d, 30mg daily x 2d, 10mg daily x 2d then stop Start Date: 04/09/14 Stop Date: 05/07/14 Status: CompletedpredniSONE 10 mg oral tablet See Instructions, 96bbh1i,28mhm4i,06ejp6d, 11gzc4l,04kmv0m,then DC, # 44 QS, 0 Refill(s), Start Date: 12/09/15 13:08:00 CDT, Pharmacy: [facility] [id number] Special Instructions: [id number],14btk1g,55myh7x, 93wri8h,11xdp9n,then DC Start Date: 12/09/15 Stop Date: 01/07/16 Status: CompletedpredniSONE 10 mg oral tablet See Instructions, 50mg x 3 days, 40mg x 3, 30mg x 3, 20mg x 3, 10mg x 2, # 44 tab(s), 0 Refill(s), Start Date: 05/27/14 12:46:00 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, [facility] [place] [place] Special [facility]ructions: 50mg x 3 days, 40mg x 3, 30mg x 3, 20mg x 3, 10mg x 2 Start Date: 05/27/14 Stop Date: 07/18/14 Status: CompletedpredniSONE 10 mg oral tablet See Instructions, 50mg x 3 days, 40mg x 3, 30mg x 3, 20mg x 3, 10mg x 2, # 44 tab(s), 0 Refill(s), Start Date: 07/18/14 16:43:03 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, [facility] [place] [place] Special Instructions: 50mg x 3 days, [...] # 30 tab(s), 0 Refill(s ), [facility] [place] [place] Special Instructions: take 40mg daily for [...] Refill(s), Start Date: 12/09/15 13:09:00 CDT, Pharmacy: [facility] [id number] Special Instructions: J44.9 *Call Pt with singh check* Start Date: 12/09/15 Status: OrderedSingulair 10 mg oral tablet 1 tab(s), Oral, qPM, # 30 tab(s), 0 Refill(s), Start Date: 12/25/14 16:28:00 CDT , Pharmacy: [facility] [place] Start Date: 12/25/14 Stop Date: 05/27/15 Status: CompletedSodium Chloride, Inhalation 7% inhalation solution 4 mL, NEB, BID, J44.9; BID with Ipratropium, # 240 mL, 6 Refill(s), Start Date: 12/10/15 16:54:00 CDT, Pharmacy: [facility] [id number] Special Instructions: J44.9; BID with Ipratropium Start Date: 12/10/15 Stop Date: 07/07/16 Status: OrderedTravatan Z 0.004% ophthalmic solution 1 drop(s), Eye-Right, HS, 0 Refill(s) Start Date: 10/07/13 Status: OrderedVentolin HFA 90 mcg/inh inhalation aerosol See Instructions, PRN shortness of breath or wheezing, 1 - 2 PUFFS EVERY 4 - 6 HOURS NEEDED, # 1 EA, 0 Refill(s), Start Date: 05/07/14 11:25:00 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, [id number] , 10/01/15 Special Instructions: 1 - 2 [...] 11/13, # 15 tab(s), 0 Refill(s), Pharmacy: [place], [place] Special Instructions: start on 11/13 Start Date: 11/12/13 Stop Date: 12/25/13 Status: Completedwarfarin 6 mg oral tablet 1 tab(s), Oral, Daily, DIRECTED, # 90 tab(s), 0 Refill(s), Start Date: 13:24:00 CDT Special Instructions: DIRECTED Start Date: 11/24/15 Status: Orderedwarfarin 6 mg oral tablet See Instructions, Levels checked at [facility]. Dr Skelton adjusting dose, pharmacist to take [...] Refill(s), Start Date: 12/09/15 13:09:00 CDT, Pharmacy: [facility] [id number] Special Instructions: J44.9 * Call Pt with singh check;CAN NOT have albuterol due to AFib Start Date: 12/09/15 Stop Date: 03/22/16 Status: CompletedXopenex 0.63 mg/3 mL inhalation solution 3 mL, NEB, QID, PRN as needed for wheezing, # 168 mL, 0 Refill(s), Start Date: 05/31/16 10:52:00 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, Pharmacy: [facility] [place] [place] Start Date: 05/31/16 Stop Date: 07/19/16 Status: DiscontinuedXopenex HFA 45 mcg/inh inhalation aerosol 2 puff(s), Inhale, q4hr interval, PRN as needed for wheezing, Call Pt with singh check; CAN NOT have albuterol due to AFib, # 1 EA, 2 Refill(s), Start Date : 12/09/15 13:10:00 CDT, Pharmacy: [facility] [id number] Special Instructions: Call Pt with singh check; [...] 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
--- OUTSIDE RECORDS SUMMARY | 2017-01-15 12:17 | XMS REPORT | Summary of Care ---
:1940 Author Organization [facility] Address [address] [place] [address] [address] [place] [address] Care Team Providers Name Role Phone Joel Skelton Ev Primary Care Physician Encounter Date(s): 12/13/16 - 12/13/16 [facility] [address] [address] Discharge Disposition: 01 Discharged to Home or Self Care Attending Physician: Marty Emmanuel MD Referring Physician: Marty Emmanuel MD Vital Signs Most recent to oldest [Reference Range]: 1 Peripheral Pulse Rate [60-100 bpm] 100 bpm (12/13/16 2:47 PM) Blood Pressure [90-130/60-90 mmHg] 116/57mmHg (12/13/16 2:47 PM) Mean Arterial Pressure, Cuff 77 mmHg (12/13/16 2:47 PM) Most recent to oldest [Reference Range]: 1 Height/Length Measured 170 cm (12/13/16 2:47 PM) Weight Dosing 108.20 kg1 (12/13/16 2:53 PM) Weight Measured 108.2 kg (12/13/16 2:47 PM) BSA Measured 2.18 m2 (12/13/16 2:47 PM) Body Mass Index Measured 37.44 kg/m2 (12/13/16 2:47 PM) 1Result Comment: This result was because the dosing weight was either not entered or it is>30 days old. This result is based off: Weight Measured December 13, 2016 14:47:00 CDT by Kandis Cruz CMA Problem List [...] breath(Confirmed) Active Sleep apnea(Confirmed) Active Weakness(Confirmed) Active [id number] added by Discern [id number] xnye6Pbxl xkho4bjcemndqo heartbeat Allergies, Adverse Reactions, Alerts Substance Reaction Severity Status Fluticasone Propionate1 hypertension Active Meperidine Hydrochloride2 Low BP Active sulfa drugs3 trouble breathing Active 1causes XFO1nggygq low blood [id number] breathing Medications albuterol 0.63 mg/3 mL (0.021%) inhalation solution 3 mL, NEB, QID, PRN wheezing, 0 Refill(s) Start Date: 10/02/13 Stop Date: 12/25/13 Status: Completedalbuterol 2.5 mg/3 mL (0.083%) inhalation solution 3 mL, Inhale, q4hr, PRN as needed for wheezing, 496, # 540 mL, 0 Refill(s), Pharmacy: [place], [place] Special Instructions: 496 Start Date: 12/25/13 Stop Date: 11/24/15 Status: Completedalbuterol 2.5 mg/3 mL (0.083%) inhalation solution 3 mL, Inhale, q4hr, PRN as needed for wheezing, 0 Refill(s) Start Date: 12/25/13 Stop Date: 12/25/13 Status: Discontinuedalbuterol CFC free 90 mcg/inh inhalation aerosol See Instructions, 1-2 puffs every 4-6 h ours as needed, # 1 EA, 5 Refill(s), Start Date: 05/07/14 11:25:00 [employer], Pharmacy: [place], [place] Special Instructions: 1-2 puffs every 4-6 h ours as needed Start Date: 05/07/14 Stop Date: 07/30/14 Status: Completedamiodarone 200 mg oral tablet 1 tab(s), Oral, BID, # 60 tab(s), 0 Refill(s), Start Date: 11/25/15 16:40:00 CDT , [facility] [id number] Start Date: 11/25/15 Stop Date: 12/03/15 Status: Discontinuedamiodarone 200 mg oral tablet 1 tab(s), Oral, BID, # 60 tab(s), 0 Refill(s), Start Date: 11/25/15 11:16:00 CDT , Pharmacy: [facility] [id number] Start Date: 11/25/15 Stop Date: 11/25/15 Status: Discontinuedatorvastatin 20 mg oral tablet 1 tab(s), Oral, HS, 0 Refill(s) Start Date: 10/02/13 Stop Date: 05/27/14 Status: CompletedAtrovent 21 mcg/inh nasal spray 2 spray(s), Nasal, Daily, # 1 EA, 5 Refill(s), Start Date: 05/27/14 12:46:00 [employer] , Pharmacy: [place], [place] Start Date: 05/27/14 Stop Date: 11/24/15 Status: CompletedAugmentin 875 mg-125 mg oral tablet 1 tab(s), Oral, q12hr interval, # 10 tab(s), 0 Refill(s), Pharmacy: [place], [place] Start Date: 04/09/14 Stop Date: 05/07/14 [...] 496, # 120 mL, 5 Refill(s), Pharmacy: [place], [place] Special Instructions: tremors and tachycardia Start Date: 04/23/14 Stop Date: 12/25/14 Status: Discontinuedbudesonide 0.25 mg/2 mL inhalation suspension 2 mL, NEB, BID, dx 496, # 120 mL, 5 Refill(s), [facility] [facility] [place] Special [place]: dx 496 Start Date: 04/09/14 Stop Date: 05/07/14 Status: Completedbudesonide 0.5 mg/2 mL inhalation suspension 2 mL, NEB, BID, COPD J44.9 Rinse mouth after, X 30 days, # 120 mL, 5 Refill(s) , Start Date: 03/30/15 13:21:13 CDT, Pharmacy: [facility] Special Instructions: COPD J44.9 Rinse mouth after Start Date: 03/30/15 Stop Date: 04/02/15 Status: Completedbudesonide 0.5 mg/2 mL inhalation suspension 2 mL, NEB, BID, COPD 496 DOSE CHANGE Rinse mouth after, # 120 mL, 5 Refill(s), Start Date: 05/07/14 11:23:00 [employer], [facility] [place] Special [facility]: COPD 496 DOSE CHANGE Rinse mouth after Start Date: 05/07/14 Stop Date: 08/01/14 Status: Completedbudesonide 0.5 mg/2 mL inhalation suspension 2 mL, NEB, BID, COPD J44.9 Rinse mouth after, # 120 mL, 5 Refill(s), Start Date : 04/02/15 9:06:29 CDT, Pharmacy: [facility] Special Instructions: COPD J44.9 Rinse mouth after Start Date: 04/02/15 Stop Date: 11/24/15 Status: Completedbudesonide 0.5 mg/2 mL inhalation suspension 2 mL, NEB, BID, COPD 496 DOSE CHANGE Rinse mouth after, X 30 days, # 120 mL, 5 Refill(s), Start Date: 08/01/14 8:13:15 [employer], Pharmacy: [facility] Special Instructions: COPD 496 DOSE CHANGE Rinse mouth after Start Date: 08/01/14 Stop Date: 03/30/15 Status: CompletedCT Oral Prep See Instructions, As directed, # 2 bottles, 0 Refill(s) Special Instructions: As directed Start Date: 03/20/14 Stop Date: 04/09/14 Status: Completeddigoxin 125 mcg (0.125 mg) oral tablet 1 tab(s), Oral, Daily, # 90 tab(s), 3 Refill(s), Start Date: 03/28/16 14:12:13 CDT, Pharmacy: [facility], [place] Start Date: 03/28/16 Status: Ordereddigoxin 125 mcg (0.125 mg) oral tablet 1 tab(s), Oral, Daily, # 30 tab(s), 3 Refill(s), Start Date: 12/03/15 11:33:00 CDT, Pharmacy: [facility] [id number] Start Date: 12/03/15 Stop Date: 03/28/16 Status: [...] wheezing, 0 Refill(s), Start Date: 05/07/14 10:27:00 [employer] Start Date: 05/07/14 Stop Date: 05/07/14 Status: Discontinuedfurosemide 40 mg oral tablet 1 tab(s), Oral, Daily, 0 Refill(s), Start Date: 05/27/14 11:40:00 [employer] Start Date: 05/27/14 Stop Date: 05/27/14 Status: Discontinuedfurosemide 40 mg oral tablet 1 tab(s), Oral, Daily, 0 Refill(s) Start Date: 10/02/13 Stop Date: 11/06/13 Status: Completedfurosemide 40 mg oral tablet 1 tab(s), Oral, Daily, this is a dose increase, # 60 tab(s), 5 Refill(s), Start Date: 05/27/14 12:40:00 [employer], Pharmacy: [place], [place] Special Instructions: this is a dose increase Start Date: 05/27/14 Stop Date: 12/13/16 Status: Discontinuedfurosemide 80 mg oral tablet 1 tab(s), Oral, Daily, # 30 tab(s), 3 Refill(s), Start Date: 12/13/16 15:15:00 CDT, Pharmacy: [place], [place] Start Date: 12/13/16 Status: OrderedhydroCHLOROthiazide 25 mg oral tablet 1 tab(s), Oral, Daily, # 30 tab(s), 0 Refill(s), Start Date: 07/19/16 14:29:00 [employer], Pharmacy: [place], [place] Start Date: 07/19/16 Stop Date: 08/19/16 Status: CompletedhydroCHLOROthiazide 25 mg oral tablet 1 tab(s), Oral, MonWedFri, # 39 tab(s), 3 Refill(s), Start Date: 08/19/16 13:45: 24 [employer], Pharmacy: [place], [place] Start Date: 08/19/16 Stop Date: 12/13/16 Status: Discontinuedipratropium 0.02% inhalation solution 2.5 mL, NEB, QID, DX: COPD 496, # 120 EA, 3 Refill(s) Special Instructions: DX: COPD 496 Start Date: 10/07/13 Stop Date: 12/25/13 Status: Completedipratropium 500 mcg/2.5 mL inhalation solution 2.5 mL, Inhale, QID, J44.9, # 300 mL, 5 Refill(s), Start Date: 07/13/15 12:07: 00 [employer], Pharmacy: [facility] [id number] Special Instructions: J44.9 Start Date: 07/13/15 Stop Date: 09/16/15 Status: Completedipratropium 500 mcg/2.5 mL inhalation solution 2.5 mL, NEB, QID, 0 Refill(s), Start Date: 11/24/15 16:17:00 CDT Start Date: 11/24/15 Stop Date: 12/09/15 Status: Completedipratropium 500 mcg/2.5 mL inhalation solution 2.5 mL, NEB, QID, J44.9, # 300 mL, 11 Refill(s), Start Date: 02/24/16 10:09:01 CDT, Pharmacy: [place], [place] Special Instructions: J44.9 Start Date: 02/24/16 Status: Orderedipratropium 500 mcg/2.5 mL inhalation solution 2.5 mL, NEB, QID, J44.9 *Call Pt with Singh check*, # 300 mL, 6 Refill(s), Start Date: 12/09/15 13:09:00 CDT, Pharmacy: [facility] [id number] Special Instructions: J44.9 *Call Pt with Singh check* Start Date: 12/09/15 Stop Date: 02/24/16 Status: Completedipratropium 500 mcg/2.5 mL inhalation solution 2.5 mL, NEB, BID, dx 496, # 150 mL, 5 Refill(s), Pharmacy: [place], [place] Special Instructions: dx 496 Start Date: 04/09/14 Stop Date: 05/27/15 Status: Completedipratropium 500 mcg/2.5 mL inhalation solution 2.5 mL, Inhale, QID, J44.9, # 900 mL, 2 Refill(s), Start Date: 09/16/15 13:08: 50 CDT, Pharmacy: [facility] [id number] Special Instructions: J44.9 Start Date: 09/16/15 Stop Date: 11/24/15 Status: Completedipratropium-albuterol 0.5 mg-2.5 mg/3 mLinhalation solution 3 mL, Inhale, QID, DX: J44.9, # 720 mL, 3 Refill(s), Start Date: 05/27/15 15:13: 00 [employer], Pharmacy: [facility] [id number] Special Instructions: DX: J44.9 Start Date: 05/27/15 Stop Date: 07/13/15 Status: Completedipratropium-albuterol 0.5 mg-2.5 mg/3 mLinhalation solution 3 mL, Inhale, QID, PRN as needed for shortness of breath or wheezing, Dx: COPD 496, # 360 mL, 2 Refill(s), Start Date: 12/25/14 9:23:00 CDT, Pharmacy: [place], [place] Special Instructions: Dx: COPD 496 Start Date: 12/25/14 Stop Date: 11/24/15 Status: CompletedLasix 40 mg oral tablet 1 tab(s), Oral, Daily, # 4 tab(s), 0 Refill(s), Pharmacy: [place], [place] Start Date: 10/21/13 Stop Date: 05/27/14 Status: CompletedLevaquin 500 mg oral tablet 1 tab(s), Oral, q24hr interval, Pt will check INR every other day, # 5 tab(s), 0 Refill(s), Start Date: 05/31/16 10:49:00 [employer], Pharmacy: [place], [place] Special Instructions: Pt will check INR every other day Start Date: 05/31/16 Stop Date: 07/19/16 Status: CompletedLevaquin 500 mg oral tablet 1 tab(s), Oral, q24hr interval, Pt voiced understanding to check INR every other day while on this antibiotic, # 5 tab(s), 0 Refill(s), Start Date: 13:08:00 CDT, Pharmacy: [facility] [id number] Special Instructions: Pt voiced understanding to check INR every other day while on this antibiotic Start Date: 12/09/15 Stop Date: 01/07/16 Status: CompletedLevaquin 500 mg oral tablet 1 tab(s), Oral, q24hr interval, # 7 tab(s), 0 Refill(s), Start Date: 05/27/14 12 :44:00 [employer], Pharmacy: [facility] [place], [place] Start Date: 05/27/14 Stop Date: 07/30/14 Status: CompletedLipitor Oral, HS, 0 Refill(s), Start Date: 05/27/14 10:23:00 [employer] Start Date: 05/27/14 Stop Date: 12/25/14 Status: CompletedmetOLazone 2.5 mg oral tablet 1 tab(s), Oral, Daily, # 30 tab(s), 0 Refill(s), Start Date: 12/13/16 15:16:00 CDT, Pharmacy: [place], [place] Start Date: 12/13/16 Status: Orderedmetoprolol succinate 50 mg oral tablet, extended release 1 tab(s), Oral, Daily, # 90 tab(s), 6 Refill(s), Start Date: 05/27/15 15:51:00 [employer], other reason (Rx) Start Date: 05/27/15 Stop Date: 11/25/15 Status: Discontinuedmetoprolol tartrate 25 mg oral tablet 1 tab(s), Oral, BID, # 60 tab(s), 0 Refill(s), Start Date: 11/25/15 16:12:00 CDT , Pharmacy: [facility] [id number] Start Date: 11/25/15 Stop Date: 12/03/15 Status: DiscontinuedMetoprolol Tartrate 50 mg oral tablet 1.5 tab(s), Oral, BID, # 270 tab(s), 3 Refill(s), Start Date: 03/25/16 15:37:51 CDT, Pharmacy: [facility] [place] Start Date: 03/25/16 Status: Orderedmetoprolol tartrate 50 mg oral tablet 1 tab(s), Oral, Daily, 0 Refill(s) Start Date: 10/02/13 Stop Date: 09/08/14 Status: DiscontinuedMetoprolol Tartrate 50 mg oral tablet 1 tab(s), Oral, BID, # 60 tab(s), 3 Refill(s), Start Date: 12/03/15 11:33:00 CDT , Pharmacy: [facility] [id number] Start Date: 12/03/15 Stop Date: 03/25/16 Status: Completedmetoprolol tartrate 50 mg oral tablet 1 tab(s), Oral, Daily, # 90 tab(s), 3 Refill(s), Start Date: 09/08/14 8:14:00 CDT, Pharmacy: [place], [place] Start Date: 09/08/14 Stop Date: 05/27/15 Status: DiscontinuedMucinex 600 mg oral tablet, extended release 2 tab(s), Oral, q12hr interval, # 120 tab(s), 0 Refill(s), Start Date: 12/10/15 16:56:00 CDT, other reason (Rx) Start Date: 12/10/15 Stop Date: 05/31/16 Status: Completedpotassium chloride 20 mEq oral tablet, extended release 1 tab(s), Oral, Daily, # 30 tab(s), 2 Refill(s), Start Date: 12/10/15 8:37:00 CDT, Pharmacy: [facility] [id number] Start Date: 12/10/15 Stop Date: 01/07/16 Status: Discontinuedpotassium chloride 20 mEq oral tablet, extended release 1 tab(s), Oral, Daily, # 30 tab(s), 0 Refill(s), Start Date: 12/13/16 15:17:00 CDT, Pharmacy: [place], [place] Start Date: 12/13/16 Status: OrderedpredniSONE 10 mg oral tablet See Instructions, [id number],[id number],30kqx7n,76zma0n,29gxd0z, then DC, # 45 QS, 0 Refill(s), Start Date: 05/31/16 10:50:00 [employer], Pharmacy: [place], [place] Special Instructions: [id number],[id number],54wnx2k,04ows2r,26kpa1b, then DC Start Date: 05/31/16 Stop Date: 07/19/16 Status: CompletedpredniSONE 10 mg oral tablet See Instructions, take 50mg daily x 3d, 40mg daily x 3d, 30mg daily x 2d, 10mg daily x 2d then stop, # 39 tab(s), 0 Refill(s), [facility] [place] [facility]: take 50mg daily x 3d, 40mg daily x 3d, 30mg daily x 2d, 10mg daily x 2d then stop Start Date: 04/09/14 Stop Date: 05/07/14 Status: CompletedpredniSONE 10 mg oral tablet See Instructions, 37ymq3l,39uar6o,58cwt6r, 74xds4q,49hhl5n,then DC, # 44 QS, 0 Refill(s), Start Date: 12/09/15 13:08:00 CDT, [facility] [id number] Special Instructions: [id number],78xka5h,31fzh7a, 67zpa4w,86vfe8z,then DC Start Date: 12/09/15 Stop Date: 01/07/16 Status: CompletedpredniSONE 10 mg oral tablet See Instructions, 50mg x 3 days, 40mg x 3, 30mg x 3, 20mg x 3, 10mg x 2, # 44 tab(s), 0 Refill(s), Start Date: 05/27/14 12:46:00 [employer], [facility] [place] Special Instructions: 50mg x 3 days, 40mg x 3, 30mg x 3, 20mg x 3, 10mg x 2 Start Date: 05/27/14 Stop Date: 07/18/14 Status: CompletedpredniSONE 10 mg oral tablet See Instructions, 50mg x 3 days, 40mg x 3, 30mg x 3, 20mg x 3, 10mg x 2, # 44 tab(s), 0 Refill(s), Start Date: 07/18/14 16:43:03 [employer], [facility] [place] [facility]: 50mg x 3 days, [...] # 30 tab(s), 0 Refill(s ), [facility] [place] [place] Special Instructions: take 40mg daily for [...] Refill(s), Start Date: 12/09/15 13:09:00 CDT, [facility] [id number] Special Instructions: J44.9 *Call Pt with singh check* Start Date: 12/09/15 Status: OrderedSingulair 10 mg oral tablet 1 tab(s), Oral, qPM, # 30 tab(s), 0 Refill(s), Start Date: 12/25/14 16:28:00 CDT , Pharmacy: [facility] [place] [place] Start Date: 12/25/14 Stop Date: 05/27/15 Status: CompletedSodium Chloride, Inhalation 7% inhalation solution 4 mL, NEB, BID, J44.9; BID with Ipratropium, # 240 mL, 6 Refill(s), Start Date: 12/10/15 16:54:00 CDT, Pharmacy: [facility] [id number] Special Instructions: J44.9; BID with Ipratropium Start Date: 12/10/15 Stop Date: 07/07/16 Status: OrderedTravatan Z 0.004% ophthalmic solution 1 drop(s), Eye-Right, HS, 0 Refill(s) Start Date: 10/07/13 Status: OrderedVentolin HFA 90 mcg/inh inhalation aerosol See Instructions, PRN shortness of breath or wheezing, 1 - 2 PUFFS EVERY 4 - 6 HOURS NEEDED, # 1 EA, 0 Refill(s), Start Date: 05/07/14 11:25:00 [employer], [id number] , 10/01/15 Special Instructions: 1 - 2 [...] 11/13, # 15 tab(s), 0 Refill(s), Pharmacy: [place], [place] Special Instructions: start on 11/13 Start Date: 11/12/13 Stop Date: 12/25/13 Status: Completedwarfarin 6 mg oral tablet 1 tab(s), Oral, Daily, DIRECTED, # 90 tab(s), 0 Refill(s), Start Date: 13:24:00 CDT Special Instructions: DIRECTED Start Date: 11/24/15 Stop Date: 12/13/16 Status: Discontinuedwarfarin 6 mg oral tablet See Instructions, Levels checked at [facility]. Dr Skelton adjusting dose, pharmacist [...] Refill(s), Start Date: 12/09/15 13:09:00 CDT, Pharmacy: [facility] [id number] Special Instructions: J44.9 * Call Pt with singh check;CAN NOT have albuterol due to AFib Start Date: 12/09/15 Stop Date: 03/22/16 Status: CompletedXopenex 0.63 mg/3 mL inhalation solution 3 mL, NEB, QID, PRN as needed for wheezing, # 168 mL, 0 Refill(s), Start Date: 05/31/16 10:52:00 [employer], [facility] [place] Start Date: 05/31/16 Stop Date: 07/19/16 Status: DiscontinuedXopenex HFA 45 mcg/inh inhalation aerosol 2 puff(s), Inhale, q4hr interval, PRN as needed for wheezing, Call Pt with singh check; CAN NOT have albuterol due to AFib, # 1 EA, 2 Refill(s), Start Date : 12/09/15 13:10:00 CDT, Pharmacy: [facility] [id number] Special Instructions: Call Pt with singh check; [...] 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
--- OUTSIDE RECORDS SUMMARY | 2017-01-15 12:17 | XMS REPORT | Summary of Care ---
:[address] [facility] Care Team Providers Name Role Phone SkeltonJoel Ev Primary Care Physician Encounter Date(s): 12/20/16 - 12/20/[address] [facility] [address] Discharge Disposition: Discharged to Home or Self Care Attending Physician: Marty Emmanuel MD Admitting Physician: Marty Emmanuel MD Vital Signs No [...] breath(Confirmed) Active Sleep apnea(Confirmed) Active Weakness(Confirmed) Active [id number] added by Discern [id number] [id number] [id number] heartbeat Allergies, Adverse Reactions, Alerts Substance Reaction Severity Status Fluticasone Propionate1 hypertension Active Meperidine Hydrochloride2 Low BP Active sulfa drugs3 trouble breathing Active 1causes SCT4ezqpsr low blood [id number] breathing Medications albuterol 0.63 mg/3 mL (0.021%) inhalation solution 3 mL, NEB, QID, PRN wheezing, 0 Refill(s) Start Date: 10/02/13 Stop Date: 12/25/13 Status: Completedalbuterol 2.5 mg/3 mL (0.083%) inhalation solution 3 mL, Inhale, q4hr, PRN as needed for wheezing, 496, # 540 mL, 0 Refill(s), Pharmacy: [place], [place] Special Instructions: 496 Start Date: 12/25/13 Stop Date: 11/24/15 Status: Completedalbuterol 2.5 mg/3 mL (0.083%) inhalation solution 3 mL, Inhale, q4hr, PRN as needed for wheezing, 0 Refill(s) Start Date: 12/25/13 Stop Date: 12/25/13 Status: Discontinuedalbuterol CFC free 90 mcg/inh inhalation aerosol See Instructions, 1-2 puffs every 4-6 h ours as needed, # 1 EA, 5 Refill(s), Start Date: 05/07/14 11:25:00 [employer], Pharmacy: [place], [place] Special Instructions: 1-2 puffs every 4-6 h ours as needed Start Date: 05/07/14 Stop Date: 07/30/14 Status: Completedamiodarone 200 mg oral tablet 1 tab(s), Oral, BID, # 60 tab(s), 0 Refill(s), Start Date: 11/25/15 16:40:00 CDT , Pharmacy: [facility] [id number] Start Date: 11/25/15 Stop Date: 12/03/15 Status: Discontinuedamiodarone 200 mg oral tablet 1 tab(s), Oral, BID, # 60 tab(s), 0 Refill(s), Start Date: 11/25/15 11:16:00 CDT , Pharmacy: [facility] [address] Start Date: 11/25/15 Stop Date: 11/25/15 Status: Discontinuedatorvastatin 20 mg oral tablet 1 tab(s), Oral, HS, 0 Refill(s) Start Date: 10/02/13 Stop Date: 05/27/14 Status: CompletedAtrovent 21 mcg/inh nasal spray 2 spray(s), Nasal, Daily, # 1 EA, 5 Refill(s), Start Date: 05/27/14 12:46:00 [employer] , Pharmacy: [place], [place] Start Date: 05/27/14 Stop Date: 11/24/15 Status: CompletedAugmentin 875 mg-125 mg oral tablet 1 tab(s), Oral, q12hr interval, # 10 tab(s), 0 Refill(s), [facility]acy: [facility] [place] [place] Start Date: 04/09/14 Stop Date: 05/07/14 [...] 496, # 120 mL, 5 Refill(s), Pharmacy: [facility] [place] Special Instructions: tremors and tachycardia Start Date: 04/23/14 Stop Date: 12/25/14 Status: Discontinuedbudesonide 0.25 mg/2 mL inhalation suspension 2 mL, NEB, BID, dx 496, # 120 mL, 5 Refill(s), Pharmacy: [facility] [place], [place] Special Instructions: dx 496 Start Date: 04/09/14 Stop Date: 05/07/14 Status: Completedbudesonide 0.5 mg/2 mL inhalation suspension 2 mL, NEB, BID, COPD J44.9 Rinse mouth after, X 30 days, # 120 mL, 5 Refill(s) , Start Date: 03/30/15 13:21:13 CDT, Pharmacy: [facility] Special Instructions: COPD J44.9 Rinse mouth after Start Date: 03/30/15 Stop Date: 04/02/15 Status: Completedbudesonide 0.5 mg/2 mL inhalation suspension 2 mL, NEB, BID, COPD 496 DOSE CHANGE Rinse mouth after, # 120 mL, 5 Refill(s), Start Date: 05/07/14 11:23:00 [employer], Pharmacy: [facility] [place], [place] Special Instructions: COPD 496 DOSE CHANGE Rinse mouth after Start Date: 05/07/14 Stop Date: 08/01/14 Status: Completedbudesonide 0.5 mg/2 mL inhalation suspension 2 mL, NEB, BID, COPD J44.9 Rinse mouth after, # 120 mL, 5 Refill(s), Start Date : 04/02/15 9:06:29 CDT, Pharmacy: [facility] Special Instructions: COPD J44.9 Rinse mouth after Start Date: 04/02/15 Stop Date: 11/24/15 Status: Completedbudesonide 0.5 mg/2 mL inhalation suspension 2 mL, NEB, BID, COPD 496 DOSE CHANGE Rinse mouth after, X 30 days, # 120 mL, 5 Refill(s), Start Date: 08/01/14 8:13:15 [employer], Pharmacy: [facility] Special Instructions: COPD 496 [...] Refill(s), Start Date: 03/28/16 14:12:13 CDT, Pharmacy: [facility] Start Date: 03/28/16 Status: Ordereddigoxin 125 mcg (0.125 mg) oral tablet 1 tab(s), Oral, Daily, # 30 tab(s), 3 Refill(s), Start Date: 12/03/15 11:33:00 CDT, [facility] [id number] Start Date: 12/03/15 Stop Date: 03/28/16 Status: [...] wheezing, 0 Refill(s), Start Date: 05/07/14 10:27:00 [employer] Start Date: 05/07/14 Stop Date: 05/07/14 Status: Discontinuedfurosemide 40 mg oral tablet 1 tab(s), Oral, Daily, 0 Refill(s), Start Date: 05/27/14 11:40:00 [employer] Start Date: 05/27/14 Stop Date: 05/27/14 Status: Discontinuedfurosemide 40 mg oral tablet 1 tab(s), Oral, Daily, 0 Refill(s) Start Date: 10/02/13 Stop Date: 11/06/13 Status: Completedfurosemide 40 mg oral tablet 1 tab(s), Oral, Daily, this is a dose increase, # 60 tab(s), 5 Refill(s), Start Date: 05/27/14 12:40:00 [employer], [place] Special Instructions: this is a dose increase Start Date: 05/27/14 Stop Date: 12/13/16 Status: Discontinuedfurosemide 80 mg oral tablet 1 tab(s), Oral, Daily, # 30 tab(s), 3 Refill(s), Start Date: 12/13/16 15:15:00 CDT, Pharmacy: [place], [place] Start Date: 12/13/16 Status: OrderedhydroCHLOROthiazide 25 mg oral tablet 1 tab(s), Oral, MonWedFri, # 13 tab(s), 6 Refill(s), Start Date: 12/20/16 16:22: 00 CDT, Pharmacy: [place], [place] Start Date: 12/20/16 Status: OrderedhydroCHLOROthiazide 25 mg oral tablet 1 tab(s), Oral, Daily, # 30 tab(s), 0 Refill(s), Start Date: 07/19/16 14:29:00 [employer], [facility] [place] Start Date: 07/19/16 Stop Date: 08/19/16 Status: CompletedhydroCHLOROthiazide 25 mg oral tablet 1 tab(s), Oral, MonWedFri, # 39 tab(s), 3 Refill(s), Start Date: 08/19/16 13:45: 24 [employer], Pharmacy: [place] Start Date: 08/19/16 Stop Date: 12/13/16 Status: Discontinuedipratropium 0.02% inhalation solution 2.5 mL, NEB, QID, DX: COPD 496, # 120 EA, 3 Refill(s) Special Instructions: DX: COPD 496 Start Date: 10/07/13 Stop Date: 12/25/13 Status: Completedipratropium 500 mcg/2.5 mL inhalation solution 2.5 mL, Inhale, QID, J44.9, # 300 mL, 5 Refill(s), Start Date: 07/13/15 12:07: 00 [employer], Pharmacy: [facility] [address] Special Instructions: J44.9 Start Date: 07/13/15 Stop Date: 09/16/15 Status: Completedipratropium 500 mcg/2.5 mL inhalation solution 2.5 mL, NEB, QID, 0 Refill(s), Start Date: 11/24/15 16:17:00 CDT Start Date: 11/24/15 Stop Date: 12/09/15 Status: Completedipratropium 500 mcg/2.5 mL inhalation solution 2.5 mL, NEB, QID, J44.9, # 300 mL, 11 Refill(s), Start Date: 02/24/16 10:09:01 CDT, Pharmacy: [place], [place] Special Instructions: J44.9 Start Date: 02/24/16 Status: Orderedipratropium 500 mcg/2.5 mL inhalation solution 2.5 mL, NEB, QID, J44.9 *Call Pt with Singh check*, # 300 mL, 6 Refill(s), Start Date: 12/09/15 13:09:00 CDT, Pharmacy: [facility] [id number] Special Instructions: J44.9 *Call Pt with Singh check* Start Date: 12/09/15 Stop Date: 02/24/16 Status: Completedipratropium 500 mcg/2.5 mL inhalation solution 2.5 mL, NEB, BID, dx 496, # 150 mL, 5 Refill(s), Pharmacy: [place], [place] Special Instructions: dx 496 Start Date: 04/09/14 Stop Date: 05/27/15 Status: Completedipratropium 500 mcg/2.5 mL inhalation solution 2.5 mL, Inhale, QID, J44.9, # 900 mL, 2 Refill(s), Start Date: 09/16/15 13:08: 50 CDT, Pharmacy: [facility] [address] Special Instructions: J44.9 Start Date: 09/16/15 Stop Date: 11/24/15 Status: Completedipratropium-albuterol 0.5 mg-2.5 mg/3 mLinhalation solution 3 mL, Inhale, QID, DX: J44.9, # 720 mL, 3 Refill(s), Start Date: 05/27/15 15:13: 00 [employer], Pharmacy: [facility] [address] Special Instructions: DX: J44.9 Start Date: 05/27/15 Stop Date: 07/13/15 Status: Completedipratropium-albuterol 0.5 mg-2.5 mg/3 mLinhalation solution 3 mL, Inhale, QID, PRN as needed for shortness of breath or wheezing, Dx: COPD 496, # 360 mL, 2 Refill(s), Start Date: 12/25/14 9:23:00 CDT, Pharmacy: [place], [place] Special Instructions: Dx: COPD 496 Start Date: 12/25/14 Stop Date: 11/24/15 Status: CompletedLasix 40 mg oral tablet 1 tab(s), Oral, Daily, # 4 tab(s), 0 Refill(s), Pharmacy: [facility] [place] Start Date: 10/21/13 Stop Date: 05/27/14 Status: CompletedLevaquin 500 mg oral tablet 1 tab(s), Oral, q24hr interval, Pt will check INR every other day, # 5 tab(s), 0 Refill(s), Start Date: 05/31/16 10:49:00 [employer], [facility] [place] [place] Special Instructions: Pt will check INR every other day Start Date: 05/31/16 Stop Date: 07/19/16 Status: CompletedLevaquin 500 mg oral tablet 1 tab(s), Oral, q24hr interval, Pt voiced understanding to check INR every other day while on this antibiotic, # 5 tab(s), 0 Refill(s), Start Date: 13:08:00 CDT, Pharmacy: [facility] [id number] Special Instructions: Pt voiced understanding to check INR every other day while on this antibiotic Start Date: 12/09/15 Stop Date: 01/07/16 Status: CompletedLevaquin 500 mg oral tablet 1 tab(s), Oral, q24hr interval, # 7 tab(s), 0 Refill(s), Start Date: 05/27/14 12 :44:00 [employer], [facility] [place] [place] Start Date: 05/27/14 Stop Date: 07/30/14 Status: CompletedLipitor Oral, HS, 0 Refill(s), Start Date: 05/27/14 10:23:00 [employer] Start Date: 05/27/14 Stop Date: 12/25/14 Status: CompletedmetOLazone 2.5 mg oral tablet 1 tab(s), Oral, Daily, # 30 tab(s), 0 Refill(s), Start Date: 12/13/16 15:16:00 CDT, Pharmacy: [place], [place] Start Date: 12/13/16 Status: Orderedmetoprolol succinate 50 mg oral tablet, extended release 1 tab(s), Oral, Daily, # 90 tab(s), 6 Refill(s), Start Date: 05/27/15 15:51:00 [employer], other reason (Rx) Start Date: 05/27/15 Stop Date: 11/25/15 Status: Discontinuedmetoprolol tartrate 25 mg oral tablet 1 tab(s), Oral, BID, # 60 tab(s), 0 Refill(s), Start Date: 11/25/15 16:12:00 CDT , Pharmacy: [facility] [id number] Start Date: 11/25/15 Stop Date: 12/03/15 Status: DiscontinuedMetoprolol Tartrate 50 mg oral tablet 1.5 tab(s), Oral, BID, # 270 tab(s), 3 Refill(s), Start Date: 03/25/16 15:37:51 CDT, Pharmacy: [facility] [place] Start Date: 03/25/16 Status: Orderedmetoprolol tartrate 50 mg oral tablet 1 tab(s), Oral, Daily, 0 Refill(s) Start Date: 10/02/13 Stop Date: 09/08/14 Status: DiscontinuedMetoprolol Tartrate 50 mg oral tablet 1 tab(s), Oral, BID, # 60 tab(s), 3 Refill(s), Start Date: 12/03/15 11:33:00 CDT , Pharmacy: [facility] [address] Start Date: 12/03/15 Stop Date: 03/25/16 Status: Completedmetoprolol tartrate 50 mg oral tablet 1 tab(s), Oral, Daily, # 90 tab(s), 3 Refill(s), Start Date: 09/08/14 8:14:00 CDT, [facility] [place] [place] Start Date: 09/08/14 Stop Date: 05/27/15 Status: DiscontinuedMucinex 600 mg oral tablet, extended release 2 tab(s), Oral, q12hr interval, # 120 tab(s), 0 Refill(s), Start Date: 12/10/15 16:56:00 CDT, other reason (Rx) Start Date: 12/10/15 Stop Date: 05/31/16 Status: Completedpotassium chloride 20 mEq oral tablet, extended release 1 tab(s), Oral, Daily, # 30 tab(s), 2 Refill(s), Start Date: 12/10/15 8:37:00 CDT, [place] [id number] Start Date: 12/10/15 Stop Date: 01/07/16 Status: Discontinuedpotassium chloride 20 mEq oral tablet, extended release 1 tab(s), Oral, Daily, # 30 tab(s), 0 Refill(s), Start Date: 12/13/16 15:17:00 CDT, Pharmacy: [place], [place] Start Date: 12/13/16 Status: OrderedpredniSONE 10 mg oral tablet See Instructions, 33kxa2f,75lyb2l,53yqp9f,13aov0m,56vxk3b, then DC, # 45 QS, 0 Refill(s), Start Date: 05/31/16 10:50:00 [employer], Pharmacy: [place], [place] Special Instructions: 13onh9j,96etc9x,62ytc0l,25gwk6j,58afv1a, then DC Start Date: 05/31/16 Stop Date: 07/19/16 Status: CompletedpredniSONE 10 mg oral tablet See Instructions, take 50mg daily x 3d, 40mg daily x 3d, 30mg daily x 2d, 10mg daily x 2d then stop, # 39 tab(s), 0 Refill(s), Pharmacy: [place], [place] Special Instructions: take 50mg daily x 3d, 40mg daily x 3d, 30mg daily x 2d, 10mg daily x 2d then stop Start Date: 04/09/14 Stop Date: 05/07/14 Status: CompletedpredniSONE 10 mg oral tablet See Instructions, 90bqv7s,36omg7l,17xhu2t, 41zbl8h,47ocj3i,then DC, # 44 QS, 0 Refill(s), Start Date: 12/09/15 13:08:00 CDT, Pharmacy: [facility] [id number] Special Instructions: 60dax5s,91igw9q,38wpp5j, 60akb2y,14xcp8p,then DC Start Date: 12/09/15 Stop Date: 01/07/16 Status: CompletedpredniSONE 10 mg oral tablet See Instructions, 50mg x 3 days, 40mg x 3, 30mg x 3, 20mg x 3, 10mg x 2, # 44 tab(s), 0 Refill(s), Start Date: 05/27/14 12:46:00 [employer], Pharmacy: [place], [place] Special Instructions: 50mg x 3 days, 40mg x 3, 30mg x 3, 20mg x 3, 10mg x 2 Start Date: 05/27/14 Stop Date: 07/18/14 Status: CompletedpredniSONE 10 mg oral tablet See Instructions, 50mg x 3 days, 40mg x 3, 30mg x 3, 20mg x 3, 10mg x 2, # 44 tab(s), 0 Refill(s), Start Date: 07/18/14 16:43:03 [employer], Pharmacy: [place] Special Instructions: 50mg x 3 days, [...] # 30 tab(s), 0 Refill(s ), Pharmacy: [place] Special Instructions: take 40mg daily for [...] Refill(s), Start Date: 12/09/15 13:09:00 CDT, Pharmacy: [facility] [id number] Special Instructions: J44.9 *Call Pt with singh check* Start Date: 12/09/15 Status: OrderedSingulair 10 mg oral tablet 1 tab(s), Oral, qPM, # 30 tab(s), 0 Refill(s), Start Date: 12/25/14 16:28:00 CDT , Pharmacy: [place], [place] Start Date: 12/25/14 Stop Date: 05/27/15 Status: CompletedSodium Chloride, Inhalation 7% inhalation solution 4 mL, NEB, BID, J44.9; BID with Ipratropium, # 240 mL, 6 Refill(s), Start Date: 12/10/15 16:54:00 CDT, Pharmacy: [facility] [id number] Special Instructions: J44.9; BID with Ipratropium Start Date: 12/10/15 Stop Date: 07/07/16 Status: OrderedTravatan Z 0.004% ophthalmic solution 1 drop(s), Eye-Right, HS, 0 Refill(s) Start Date: 10/07/13 Status: OrderedVentolin HFA 90 mcg/inh inhalation aerosol See Instructions, PRN shortness of breath or wheezing, 1 - 2 PUFFS EVERY 4 - 6 HOURS NEEDED, # 1 EA, 0 Refill(s), Start Date: 05/07/14 11:25:00 [employer], [id number] , 10/01/15 Special Instructions: 1 - 2 [...] 11/13, # 15 tab(s), 0 Refill(s), Pharmacy: [place], [place] Special Instructions: start on 11/13 Start Date: 11/12/13 Stop Date: 12/25/13 Status: Completedwarfarin 6 mg oral tablet 1 tab(s), Oral, Daily, DIRECTED, # 90 tab(s), 0 Refill(s), Start Date: 13:24:00 CDT Special Instructions: DIRECTED Start Date: 11/24/15 Stop Date: 12/13/16 Status: Discontinuedwarfarin 6 mg oral tablet See Instructions, Levels checked at [facility]. Dr Skelton adjusting dose, pharmacist [...] Refill(s), Start Date: 12/09/15 13:09:00 CDT, Pharmacy: [facility] Special Instructions: J44.9 * Call Pt with singh check;CAN NOT have albuterol due to AFib Start Date: 12/09/15 Stop Date: 03/22/16 Status: CompletedXopenex 0.63 mg/3 mL inhalation solution 3 mL, NEB, QID, PRN as needed for wheezing, # 168 mL, 0 Refill(s), Start Date: 05/31/16 10:52:00 [employer], [facility]acy: [facility] [place] Start Date: 05/31/16 Stop Date: 07/19/16 Status: DiscontinuedXopenex HFA 45 mcg/inh inhalation aerosol 2 puff(s), Inhale, q4hr interval, PRN as needed for wheezing, Call Pt with singh check; CAN NOT have albuterol due to AFib, # 1 EA, 2 Refill(s), Start Date : 12/09/15 13:10:00 CDT, Pharmacy: [facility] [id number] Special Instructions: Call Pt with singh check; CAN NOT have albuterol due to AFib Start Date: 12/09/15 Stop Date: 07/19/16 Status: Discontinued Results Patient Viewable Results Most recent to oldest [Reference Range]: 1 WBC [4.8-10.8 thou/mm3] 7.4 thou/mm3 (12/20/16 3:22 PM) RBC [4.20-5.40 Mil/mm3] 5.15 Mil/mm3 (12/20/16 3:22 PM) Hgb [12.0-16.0 g/dL] 14.4 g/dL (12/20/16 3:22 PM) Hct [37.0-47.0 %] 46.8 % (12/20/16 3:22 PM) MCV [80.0-94.0 fL] 90.9 fL (12/20/16 3:22 PM) MCH [25.0-38.0 pg/cell] 28.0 pg/cell (12/20/16 3:22 PM) MCHC [31.0-37.0 g/dL] 30.8 g/dL *LOW* (12/20/16 3:22 PM) RDW [1.0-48.0 fL] 65.6 fL *HI* (12/20/16 3:22 PM) Platelet [130-400 thou/mm3] 274 thou/mm3 (12/20/16 3:22 PM) Sodium Lvl [135-144 mEq/L] 143 mEq/L (12/20/16 3:22 PM) Potassium Lvl [3.3-4.8 mEq/L] 4.2 mEq/L (12/20/16 3:22 PM) Chloride Lvl [98-107 mEq/L] 102 mEq/L (12/20/16 3:22 PM) Bicarbonate Lvl [22-30 mmol/L] 28 mmol/L (12/20/16 3:22 PM) Anion Gap [10.0-20.0] 17.2 (12/20/16 3:22 PM) Glucose Lvl [70-108 mg/dL] 99 mg/dL (12/20/16 3:22 PM) BUN [7-21 mg/dL] 23 mg/dL *HI* (12/20/16 3:22 PM) Creatinine Lvl [0.50-1.20 mg/dL] 1.11 mg/dL (12/20/16 3:22 PM) BUN/Creat Ratio 20.7 *NA* (12/20/16 3:22 PM) eGFR AA [>=60] 58 *LOW* (12/20/16 3:22 PM) eGFR CARON [>=60] 48 *LOW* (12/20/16 3:22 PM) Calcium Lvl [8.6-10.2 mg/dL] 9.5 mg/dL (12/20/16 3:22 PM) Estimated Creatinine Clearance 52.42 mL/min (12/20/16 3:59 PM) Immunizations Vaccine Date Refusal Reason influenza [...] 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
[2017-01-15 12:18] LABS: Hematocrit 43.4 % (37.0-47.0); Hemoglobin 13.7 gm/dL (12.5-16.0); Mean Cell Volume 83.6 fl (78-100); Mean Corpuscular Hemoglobin 26.4 pg (27-31); Mean Corpuscular Hgb Conc 31.6 g/dl (32-36); Mean Platelet Volume 10.2 fl (6.0-9.5); Neutrophil # 5.5 K/mm3 (1.3-6.0); Platelet Count 287 K/mm3 (150-450); Red Blood Count 5.19 M/mm3 (4.2-5.4); Red Cell Distribution Width 18.4 % (11.5-14.0); White Blood Count 7.5 K/mm3 (4.0-10.5)
[2017-01-15 12:40] LABS: Albumin * 3.3 gm/dl (3.4-5.0); Anion Gap 11.2 mmol/L (6.8-13.8); BUN/Creatinine Ratio 27.3 (9.0-21.6); Bilirubin, Total 2.3 mg/dL (0.0-1.1); Ca. Corrected For Albumin 9.9 mg/dL (8.4-10.2); Calcium * 9.7 mg/dL (7.9-10.9); Carbon Dioxide 27.9 mmol/L (24-32.6); Potassium 4.1 mmol/L (3.4-4.6); Total Protein 6.7 gm/dL (6.2-8.2)
[2017-01-15] MEDS ORDERED: DIGOXIN 0.25 MG/ML AMPUL IV ONE ×2 (12:42→19:00)
[2017-01-15] MEDS ORDERED: DIGOXIN 0.25 MG/ML AMPUL ONE (12:53)
--- OUTSIDE RECORDS SUMMARY | 2017-01-15 13:52 | XMS REPORT | Continuity of Care Document ---
:1940 Author Organization [employer] [place] [address] Care Team Providers Name Role Phone Unavailable Primary Care Provider Unavailable Source Comments This disclosure is being made pursuant to the [employer] program and maynot contain all information available regarding this patient.[employer] Active Allergies and Adverse Reactions Not on [...]
[2017-01-15] MEDS ORDERED: FUROSEMIDE 10 MG/ML VIAL IV SCH (14:00)
--- NOTE | 2017-01-15 16:06 | HP ---
Chief Complaint - Chief Complaint Date of Service: 01/15/17 Time of Service: 15:50 Chief Complaint: Dyspnea History of Present Illness: This is a 76 year old woman with chronic atrial fibrillation and congestive heart failure. Her lasix, aldactone, and digoxin were discontinued two days ago. Since then she has had increasing shortness of breath and orthopne. She denies any chest pain, and has had no fever, but has lost her appetite and has gained about one pound of weight. She admits to increasing swelling of her feet , and almost no urine output. She became concerned, so called her home health nurse. Her home nurse visited her, and found her BP to be 90. All things considered, she was advised to come to the [facility] ER, where she was found to have chronic atrial fibrillation with a ventricular rate of 130- 140. She has a history of COPD and is on 3 liters of oxygen at home. She was admitted for CHF on and diuresed. She also history of a PE and is on elliquis. She admits to depression, worsening over the last two months, because of her chronic medical conditions, and wonders if cardiac ablation might help her atrial fibrillation. Her environmental health and safety manager is Dr. Emmanuel. - Patient's Past Medical History Patient History - Medical: Depression, GERD, Osteoarthritis, Osteoporosis, Rheumatoid Arthritis Patient History - Cardiac/Respiratory: Atrial Fibrillation, Coronary Heart Disease, CHF, COPD, Deep Vein Thrombosis, Hyperlipidemia, Pulmonary Embolism Patient History - Cancer: Breast Patient History - Surgical Procedures: Appendectomy, Cataracts, Cholecystectomy , Colonoscopy Patient History - Other: None LMP (females 10-50): Menopausal - Family History Father Family History - Medical: , Osteoarthritis, Osteoporosis, Renal Disease Family History - Cardiac/Respiratory: Arrhythmias, Coronary Heart Disease, CHF, COPD, Deep Vein Thrombosis, Hypertension, Myocardial Infarction, Pulmonary Embolism Family History - Cancer: No pertinent family hx, Colon Mother Family History - Medical: Family History - Cardiac/Respiratory: CHF, Myocardial Infarction Family History - Cancer: No pertinent family hx - Social History Living Situations: home Abuse History: No History of abuse Psych History: No pertinent hx Smoking Status: Former smoker Have you smoked in the past 12 months: No Do you dip or chew tobacco: No Smoking Stop Date: 07/03/99 Patient requests Smoking Cessation Consult: No Initiate information on Smoking Cessation: No Alcohol Use: none Drug Use: none - Immunizations Immunizations Up to Date: Yes Hx Pneumococcal Vaccination: Yes History of Influenza Vaccine: Yes Review Of Systems (GEN) - Review of Systems Generalized/Overall Review: Present: Weakness, Malaise, Weight gain Respiratory: Present: Shortness of Breath, Orthopnea Cardiac: Present: Edema, Palpitations Abdominal: Present: Other - anorexia Genitourinary: Present: Other - poor urine output Musculoskeletal: Present: No Symptoms Reported Neurological: Present: Depressed Skin: Present: No Symptoms Reported Endocrine: Present: Other - anorexia Misc: All systems neg except as marked Allergies/Adverse Reactions: Allergies Allergy/AdvReac Type Severity Reaction Status Date / Time meperidine HCl [From Demerol] Allergy Mild Verified 01/15/17 14:25 Penicillins Allergy Mild Verified 01/15/17 14:25 Sulfa (Sulfonamide Allergy Mild Verified 01/15/17 14:25 Antibiotics) [Sulfa(Sulfonamide Antibiotics)] Home Medications: HOME MEDICATIONS Travoprost (Benzalkonium) [Travoprost 0.004% Eye Drop] 1 drop RIGHTEYE DAILY 08/17 [Last Taken 01/14/17 20:00] Ipratropium [place] 250 mcg IH BID 05/04/16 [Last Taken 01/15/17 08:00] Apixaban [Eliquis] 5 mg PO BID 12/16/16 [Last Taken 01/15/17 08:00] Budesonide [Pulmicort Respules] 0.5 mg IH BID 12/24/16 [Last Taken 01/15/17 08: 00] Sodium Chloride For Inhalation [Sodium Chloride 3% Inhalation Solution] 4 ml IH DAILY 12/24/16 [Last Taken 01/14/17 08:00] Acetaminophen 650 mg PO Q6H PRN #30 tablet 12/26/16 [Last Taken Unknown] Pantoprazole Sodium [Protonix] 40 mg PO 0700 tablet. 12/26/16 [Last Taken 07:00] Metoprolol Succinate [Toprol Xl] 50 mg PO TID 01/15/17 [Last Taken 01/15/17 08: 00] Exam - Exam Vital Signs: Vital Signs - Last Taken Temp 36.2 C L 01/15/17 14:00 Pulse 112 H 01/15/17 15:05 Resp 18 01/15/17 14:00 BP 118/75 01/15/17 15:05 Pulse Ox 94 01/15/17 15:43 Constitutional: Present: Alert, Oriented x3, Cooperative, Mild distress, Obese ENT Exam: Present: normal ENT inspection, hearing grossly normal Eye Exam: bilateral eye: normal inspection, PERRL, EOMI Neck: Present: normal inspection Back Exam: Present: normal inspection Respiratory: Present: rales Cardiovascular/Chest: Present: tachycardia, gallop/S3, irregularly irregular Abdomen: Present: Normal bowel sounds, soft, nontender, nondistended, no hepatospenomegaly, obese Extremity: Present: pedal edema, slow capillary refill Skin Exam: Present: no cyanosis, cool/dry Neurologic: Present: alert Appearance: Present: appropriate appearance, appropriate insight, neat Eye contact: Present: cooperative, good eye contact, normal speech Thoughts: Present: normal thought pattern Diagnostic Studies: Laboratory Results WBC 7.5 K/mm3 (4.0-10.5) 01/15/17 12:15 RBC 5.19 M/mm3 (4.2-5.4) 01/15/17 12:15 Hgb 13.7 gm/dL (12.5-16.0) 01/15/17 12:15 Hct 43.4 % (37.0-47.0) 01/15/17 12:15 MCV 83.6 fl (78-100) 01/15/17 12:15 MCH 26.4 pg (27-31) L 01/15/17 12:15 MCHC 31.6 g/dl (32-36) L 01/15/17 12:15 RDW 18.4 % (11.5-14.0) H 01/15/17 12:15 Plt Count 287 K/mm3 (150-450) 01/15/17 12:15 MPV 10.2 fl (6.0-9.5) H 01/15/17 12:15 Immature Gran % (Auto) 0.10 % (0.001-0.429) 01/15/17 12:15 Immature Gran # (Auto) 0.01 K/mm3 (0.000-0.0310) 01/15/17 12:15 Neutrophils % 74.0 % (42-75.0) 01/15/17 12:15 Lymphocytes % 15.6 % (20-51) L 01/15/17 12:15 Monocytes % 9.1 % (0.0-9) H 01/15/17 12:15 Eosinophils % 1.1 % (0.0-3.0) 01/15/17 12:15 Basophils % 0.1 % (0.0-1.0) 01/15/17 12:15 Nucleated RBC % 0.0 k/mm3 (0-1) 01/15/17 12:15 Neutrophils # 5.5 K/mm3 (1.3-6.0) 01/15/17 12:15 Lymphocytes # 1.2 k/mm3 (1.5-3.5) L 01/15/17 12:15 Monocytes # 0.7 k/mm3 (0.0-1.0) 01/15/17 12:15 Eosinophils # 0.1 k/mm3 (0.0-0.7) 01/15/17 12:15 Absolute Basophils 0.0 k/mm3 (0.0-0.1) 01/15/17 12:15 Sodium 137 mmol/L (132-142) 01/15/17 12:15 Plasma Sodium 137 mmol/L (130-142) 01/15/17 12:15 Potassium 4.1 mmol/L (3.4-4.6) 01/15/17 12:15 Chloride 102 mmol/L (97-106) 01/15/17 12:15 Carbon Dioxide 27.9 mmol/L (24-32.6) 01/15/17 12:15 Anion Gap 11.2 mmol/L (6.8-13.8) 01/15/17 12:15 BUN 48 mg/dL (3-23) H 01/15/17 12:15 Creatinine 1.76 mg/dL (0.4-1.4) H 01/15/17 12:15 Est GFR (Non-Af Amer) 30 mL/min (60-130) L 01/15/17 12:15 BUN/Creatinine Ratio 27.3 (9.0-21.6) H 01/15/17 12:15 Random Glucose 119 mg/dL (70-110) H 01/15/17 12:15 Calcium 9.7 mg/dL (7.9-10.9) 01/15/17 12:15 Calcium Adj for Albumin 9.9 mg/dL (8.4-10.2) 01/15/17 12:15 Total Bilirubin 2.3 mg/dL (0.0-1.1) H 01/15/17 12:15 AST 95 U/L (0-48) H 01/15/17 12:15 ALT 118 U/L (19-67) H 01/15/17 12:15 Alkaline Phosphatase 75 U/L (50-170) 01/15/17 12:15 B-Natriuretic Peptide 8242 pg/mL (5-550) H 01/15/17 12:15 Total Protein 6.7 gm/dL (6.2-8.2) 01/15/17 12:15 Albumin 3.3 gm/dl (3.4-5.0) L 01/15/17 12:15 Assessment/Plan - Narrative Narrative: IV Lasix. Follow labs. IV digoxin. Remeron for sleep and depression. Talk with Dr. Emmanuel about possible ablation. - Assessment/Plan (1) Depression Problem: Chronic Qualifiers: Depression Type: reactive depression Qualified Code(s): F32.9 - Major depressive disorder, single episode, unspecified (2) Insomnia Problem: Chronic Qualifiers: Insomnia type: due to medical condition Qualified Code(s): G47.01 - Insomnia due to medical condition (3) Pulmonary embolism Problem: Chronic Qualifiers: Pulmonary embolism type: saddle Chronicity: chronic Acute cor pulmonale presence: without acute cor pulmonale Qualified Code(s): I26.92 - Saddle embolus of pulmonary artery without acute cor pulmonale (4) Atrial fibrillation with RVR Problem: Chronic (5) CHF (congestive heart failure) Problem: Acute Qualifiers: Congestive heart failure type: unspecified congestive heart failure type Congestive heart failure chronicity: chronic Qualified Code(s): I50.9 - Heart failure, unspecified (6) Renal failure Problem: Acute Qualifiers: Renal failure chronicity: acute on chronic Acute renal failure type: unspecified Chronic kidney disease stage: stage 3 (moderate) Qualified Code( s): N17.9 - Acute kidney failure, unspecified; N18.3 - Chronic kidney disease, stage 3 (moderate) (7) COPD on 3L O2 Problem: Chronic (8) FRANCIS (obstructive sleep apnea) Problem: Chronic
[2017-01-15] MEDS: METOPROLOL SUCCINATE 50 MG TABLET.SA PO SCH (16:24)
[2017-01-15] MEDS: IPRATROPIUM BROMIDE 0.5 MG/2.5 ML VIAL.NEB IH SCH (18:12)
[2017-01-15] MEDS: BUDESONIDE 0.5 MG/2 ML VIAL.NEB IH SCH (18:14)
[2017-01-15] MEDS: APIXABAN 2.5 MG TABLET PO SCH (22:20)
[2017-01-15] MEDS: TRAVOPROST 25 DROP BTL RIGHTEYE SCH (22:21)
[2017-01-15] MEDS: MIRTAZAPINE 15 MG TABLET PO SCH (22:23)
[2017-01-16] MEDS: METOPROLOL SUCCINATE 50 MG TABLET.SA PO SCH ×3 (01:17→17:31)
[2017-01-16 04:51] LABS: Albumin * 3.1 gm/dl (3.4-5.0); Anion Gap 8.9 mmol/L (6.8-13.8); BUN/Creatinine Ratio 24.6 (9.0-21.6); Bilirubin Direct 0.7 mg/dL (0.0-0.3); Bilirubin, Total 1.8 mg/dL (0.0-1.1); Bilirubin,Indirect 1.1 mg/dL (0.1-0.7); Calcium * 9.4 mg/dL (7.9-10.9); Estimated Creat Clear 24.6; Potassium 3.9 mmol/L (3.4-4.6); Total Protein 6.3 gm/dL (6.2-8.2)
[2017-01-16] MEDS ORDERED: DIGOXIN 0.25 MG/ML AMPUL IV ONE (04:59)
[2017-01-16] MEDS: BUDESONIDE 0.5 MG/2 ML VIAL.NEB IH SCH ×2 (06:06→18:03)
[2017-01-16] MEDS: IPRATROPIUM BROMIDE 0.5 MG/2.5 ML VIAL.NEB IH SCH ×2 (06:06→18:03)
[2017-01-16] MEDS: PANTOPRAZOLE SODIUM 40 MG TABLET.EC PO SCH (06:20)
[2017-01-16] MEDS: APIXABAN 2.5 MG TABLET PO SCH ×2 (08:32→20:53)
[2017-01-16] MEDS ORDERED: FUROSEMIDE 10 MG/ML VIAL IV SCH (09:00)
[2017-01-16] MEDS: SODIUM CHLORIDE FOR INHALATION 4 ML VIAL.NEB IH SCH (09:09)
[2017-01-16] MEDS ORDERED: METOLAZONE 2.5 MG TABLET PO ONE (13:30)
[2017-01-16] MEDS ORDERED: FUROSEMIDE 10 MG/ML VIAL IV ONE (14:00)
[2017-01-16] MEDS ORDERED: SPIRONOLACTONE 25 MG TABLET PO ONE (14:00)
--- NOTE | 2017-01-16 18:16 | PN ---
Subjective - Date and Time Seen Date: 01/16/17 Time: 11:30 Subjective Narrative: Patient continues to be short of breath at rest, on oxygen at 2 L. Has difficulty in walking to the bathroom. Did not diurese very well with IV furosemide; C/O swelling in lower extremities. Objective - Review of Systems Generalized/Overall Review: Reports: Weakness, Fatigue, Weight gain Respiratory: Reports: Shortness of Breath Cardiac: Reports: Edema, Palpitations - Vitals Vitals: Vital Signs Temp 36.3 C L 01/16/17 14:03 Pulse 104 H 01/16/17 18:03 Resp 18 01/16/17 18:03 BP 118/78 01/16/17 17:31 Pulse Ox 93 2L 01/16/17 18:03 - Abnormal Lab Findings Abnormal Lab Findings: Laboratory Tests 01/16/17 04:30 Plasma Sodium 139 Potassium 3.9 Chloride 103 Carbon Dioxide 31.0 BUN 45 H Creatinine 1.83 H Est GFR (Non-Af Amer) 28 L Total Bilirubin 1.8 H Direct Bilirubin 0.7 H Indirect Bilirubin 1.1 H AST 69 H ALT 110 H Alkaline Phosphatase 74 Total Protein 6.3 Albumin 3.1 L Digoxin 1.0 D - EKG/Xray Findings EKG read: Interp. by me - afib with RVR 105-100/min ; LBBB. Interpretation: Interp. by me - Afib wt RVR 105-110 /min at rest LBBB - Exam Constitutional: Present: Elderly, Obese - on 3l O2 , dysneic at rest. ENT Exam: Present: hearing grossly normal, moist mucous membranes Neck: Present: normal inspection, trachea midline Breasts: Present: Other - S/P bilateral mastectomies Respiratory: Present: accessory muscle use - mild, crackles - bilat at bases. Cardiovascular/Chest: Present: systolic murmur, irregularly irregular Abdomen: Present: Normal bowel sounds, soft, nontender, obese /Rectal: Present: Exam deferred Extremity: Present: normal inspection, lower extremity edema - 2+ Skin Exam: Present: normal color, warm/dry Cauti Physician Documentation - Urinary Catheter Management Urethral (Mahmood) Urethral Indwelling: No Date of Insertion: 01/16/17 Time of Insertion: 14:15 Assessment/Plan Plan Narrative: 1. A. fib with RVR: Patient was loaded with Lanoxin. Currently on metoprolol ER 50 mg PO Q8H. we will increase gradually. TSH WNL. Continue Eliquis 5 mg PO BID. 2. CHF most likely right-sided: Obtain echocardiogram today. Metolazone 1.25 mg PO 1 followed by furosemide 80 mg IV 1 and spironolactone 50 mg PO 1. Strict I's and O's. Daily weights. Continue catheter. 3. COPD: Chronic and stable. 3 L O2. Continue Pulmicort Respules 0.5 mg IH twice a day , Atrovent and normal saline. 4. Chronic problems: GERD on pantoprazole 40 mg po daily, bilateral mastectomies OA - chronic and stable.
[2017-01-16] MEDS: MIRTAZAPINE 15 MG TABLET PO SCH (20:53)
[2017-01-16] MEDS: TRAVOPROST 25 DROP BTL RIGHTEYE SCH (20:53)
[2017-01-17] MEDS: METOPROLOL SUCCINATE 50 MG TABLET.SA PO SCH ×3 (00:22→16:40)
[2017-01-17] MEDS: ACETAMINOPHEN 325 MG TABLET PO PRN (00:22)
[2017-01-17] MEDS: BUDESONIDE 0.5 MG/2 ML VIAL.NEB IH SCH ×2 (06:02→18:12)
[2017-01-17] MEDS: IPRATROPIUM BROMIDE 0.5 MG/2.5 ML VIAL.NEB IH SCH ×2 (06:04→18:14)
[2017-01-17 06:12] LABS: Albumin * 2.8 gm/dl (3.4-5.0); Anion Gap 8.4 mmol/L (6.8-13.8); Bilirubin, Total 1.3 mg/dL (0.0-1.1); Ca. Corrected For Albumin 9.8 mg/dL (8.4-10.2); Calcium * 9.2 mg/dL (7.9-10.9); Potassium 3.4 mmol/L (3.4-4.6); Total Protein 5.9 gm/dL (6.2-8.2)
[2017-01-17] MEDS: PANTOPRAZOLE SODIUM 40 MG TABLET.EC PO SCH (07:10)
[2017-01-17] MEDS: APIXABAN 2.5 MG TABLET PO SCH ×2 (08:27→20:39)
[2017-01-17] MEDS ORDERED: SPIRONOLACTONE 100 MG TABLET PO ONE (09:00)
[2017-01-17] MEDS ORDERED: FUROSEMIDE 10 MG/ML VIAL IV ONE (09:00)
[2017-01-17] MEDS: SODIUM CHLORIDE FOR INHALATION 4 ML VIAL.NEB IH SCH (09:13)
--- NOTE | 2017-01-17 11:24 | PN ---
Subjective - Date and Time Seen Date: 01/17/17 Time: 11:23 Subjective Narrative: less sob, swelling in lower extremities improved. Objective - Review of Systems Generalized/Overall Review: Reports: Weakness, Fatigue - improved. Cardiac: Reports: Edema - improving. Denies: Chest Pain Musculoskeletal Complaints: Reports: Back Pain - Vitals Vitals: Last Vital Signs Temp 36.4 C L 01/17/17 07:54 Pulse 112 H 01/17/17 11:18 Resp 24 H 01/17/17 11:18 BP 122/78 01/17/17 11:18 Pulse Ox 93 01/17/17 11:18 - Abnormal Lab Findings Abnormal Lab Findings: Laboratory Tests 01/17/17 05:25 Plasma Sodium 143 H Potassium 3.4 Chloride 105 Carbon Dioxide 33.0 H BUN 46 H Creatinine 1.84 H Est GFR (Non-Af Amer) 28 L Random Glucose 112 H Calcium Adj for Albumin 9.8 Total Bilirubin 1.3 H AST 40 ALT 87 H Alkaline Phosphatase 69 Total Protein 5.9 L Albumin 2.8 L 01/15/17 01/17/17 14:00 05:01 Weight 102.33 kg 98 kg - EKG/Xray Findings EKG read: Reviewed by - Issac with RVR 105-110 /min LBBB - Exam Constitutional: Present: Elderly - On O2 at 3 L, alert and oriented 3, less SOB., Obese ENT Exam: Present: hearing grossly normal, moist mucous membranes Neck: Present: normal inspection, trachea midline Breasts: Present: Other - Bilateral mastectomies. Respiratory: Present: no accessory muscle use, crackles - Bilaterally at the bases Cardiovascular/Chest: Present: tachycardia, systolic murmur, irregularly irregular Abdomen: Present: Normal bowel sounds, soft, nontender, obese. Absent: nondistended Extremity: Present: normal inspection, lower extremity edema - 1+ Cauti Physician Documentation - Urinary Catheter Management Urethral (Mahmood) Date of Insertion: 01/16/17 Time of Insertion: 14:15 Assessment/Plan Plan Narrative: 1. HFrEF: ECHO: 01/16/2017: Mild LVH with EF 25-30%. RVSP 63 mmHg. AVEL LT[ severe] >RT [ mod]. Mod. MR, mild TR, mild AI. Septal dyskinesis due to conduction abnormality. . Furosemide 80 mg IV 1 and spironolactone 100 mg PO 1 today. Patient had a loss of minus 3L and lost approximately 3 kg. SOB markedly improved. Strict I' s and O's. Daily weights. Continue catheter. 2. A. fib with RVR: metoprolol ER 50 mg PO Q8H changed to 100 mg PO Q12H. continue Lanoxin 0.125 mg PO M,W,F. TSH WNL. Continue Eliquis 5 mg PO BID. 3. Abnormal LFTs: this is most likely to hepatic congestion due to right-sided heart failure which are improving as the patient is being gradually diuresed. 4 COPD: Chronic and stable. 3 L O2. Continue Pulmicort Respules 0.5 mg IH twice a day , Atrovent and normal saline. 5. Chronic problems: GERD on pantoprazole 40 mg po daily, bilateral mastectomies OA - chronic and stable. Addendum: Had a long discussion with Dr. Mathews tribal council member who is present at [facility] today.reviewed EKG and discussed case. Patient is an ideal candidate for ablation and pacemaker placement. This was set up for on 01/23/2017 at [facility].
[2017-01-17] MEDS: CHOLECALCIFEROL 5,000 UNIT TABLET PO SCH (11:46)
[2017-01-17] MEDS: DIGOXIN 0.125 MG TABLET PO SCH (13:44)
[2017-01-17] MEDS: HYDROPHILIC OINTMENT 454 APPL JAR TP SCH ×2 (13:44→20:39)
[2017-01-17] MEDS: TRAVOPROST 25 DROP BTL RIGHTEYE SCH (20:42)
[2017-01-17] MEDS ORDERED: METOPROLOL SUCCINATE 50 MG TABLET.SA PO ONE (20:47)
[2017-01-17] MEDS: METOPROLOL SUCCINATE 100 MG TABLET.SA PO SCH (20:52)
[2017-01-18] MEDS: ACETAMINOPHEN 325 MG TABLET PO PRN (03:42)
[2017-01-18] MEDS: IPRATROPIUM BROMIDE 0.5 MG/2.5 ML VIAL.NEB IH SCH ×2 (06:00→18:16)
[2017-01-18 06:02] LABS: Albumin * 2.9 gm/dl (3.4-5.0); Anion Gap 8.2 mmol/L (6.8-13.8); BUN/Creatinine Ratio 26.9 (9.0-21.6); Bilirubin, Total 1.2 mg/dL (0.0-1.1); Ca. Corrected For Albumin 9.9 mg/dL (8.4-10.2); Calcium * 9.3 mg/dL (7.9-10.9); Carbon Dioxide 34.3 mmol/L (24-32.6); Potassium 3.5 mmol/L (3.4-4.6); Total Protein 6.1 gm/dL (6.2-8.2)
[2017-01-18] MEDS: BUDESONIDE 0.5 MG/2 ML VIAL.NEB IH SCH ×2 (06:04→18:19)
--- NOTE | 2017-01-18 06:59 | PN ---
Subjective - Date and Time Seen Date: 01/18/17 Time: 06:53 Subjective Narrative: states she is less short of breath - but states she does not feel like neb treatments are helping. lower extremity edema is much improved. Objective - Review of Systems Generalized/Overall Review: Reports: No Symptoms Reported EENTM: Reports: No Symptoms Reported Respiratory: Reports: Shortness of Breath Cardiac: Reports: Edema Abdominal: Reports: No Symptoms Reported Genitourinary Symptoms: Reports: No Symptoms Reported Musculoskeletal Complaints: Reports: No Symptoms Reported Neurological: Reports: No Symptoms Reported Skin: Reports: No Symptoms Reported Endocrine: Reports: No Symptoms Reported Misc: All systems neg except as marked - Vitals Vitals: Last Vital Signs Temp 36.8 C 01/18/17 02:30 Pulse 101 H 01/18/17 06:10 Resp 20 01/18/17 06:10 BP 106/53 01/18/17 02:30 Pulse Ox 90 01/18/17 06:00 - Abnormal Lab Findings Abnormal Lab Findings: Abnormal Lab Results 01/18/17 Range/Units 05:34 Carbon Dioxide 34.3 H (24-32.6) mmol/L BUN 42 H (3-23) mg/dL Creatinine 1.56 H (0.4-1.4) mg/dL Est GFR (Non-Af Amer) 34 L D (60-130) mL/min BUN/Creatinine Ratio 26.9 H (9.0-21.6) Total Bilirubin 1.2 H (0.0-1.1) mg/dL ALT 73 H (19-67) U/L Total Protein 6.1 L (6.2-8.2) gm/dL Albumin 2.9 L (3.4-5.0) gm/dl - Exam Constitutional: Present: Alert, Cooperative, No distress, Elderly, Obese ENT Exam: Present: hearing grossly normal Neck: Present: supple Breasts: Present: Exam deferred Respiratory: Present: no respiratory distress, no accessory muscle use, decreased breath sounds Cardiovascular/Chest: Present: normal peripheral pulses, tachycardia, irregularly irregular Abdomen: Present: soft, nontender, nondistended, obese /Rectal: Present: Exam deferred Extremity: Present: non-tender, no calf tenderness, lower extremity edema - trace to +1 lower extremity edema bilat. Skin Exam: Present: normal color, warm/dry, no cyanosis Cauti Physician Documentation - Urinary Catheter Management Urethral (Mahmood) Date of Insertion: 01/16/17 Time of Insertion: 14:15 Assessment/Plan Plan Narrative: Afib with RVR - monitor on telemetry - adjusted metoprolol dose last night - currently 100 mg bid. - superintendent terminal plan - keep outpatient appointment with EP doctor on Monday01/23/17 acute on chronic kidney disease, stage 3 - improving since admission. HFrEF - continue to diurese today - daily weight - strict I&Os - low salt diet Plan: likely discharge in am. Code status: Full code with restrictions VTE: eliquis GI Proph: protonix po - Problems/Diagnosis (1) Atrial fibrillation with RVR Problem: Acute (2) Renal failure Problem: Acute Qualifiers: Renal failure chronicity: acute on chronic Acute renal failure type: unspecified Chronic kidney disease stage: stage 3 (moderate) Qualified Code( s): N17.9 - Acute kidney failure, unspecified; N18.3 - Chronic kidney disease, stage 3 (moderate) (3) HFrEF (heart failure with reduced ejection fraction) Problem: Acute Qualifiers: Heart failure chronicity: acute on chronic Qualified Code(s): I50.23 - Acute on chronic systolic (congestive) heart failure (4) HTN (hypertension) Problem: Chronic Qualifiers: Hypertension type: essential hypertension Qualified Code(s): I10 - Essential (primary) hypertension (5) COPD on 3L O2 Problem: Chronic (6) FRANCIS (obstructive sleep apnea) Problem: Chronic (7) Depression Problem: Chronic Qualifiers: Depression Type: reactive depression Qualified Code(s): F32.9 - Major depressive disorder, single episode, unspecified (8) Insomnia Problem: Chronic Qualifiers: Insomnia type: due to medical condition Qualified Code(s): G47.01 - Insomnia due to medical condition (9) Pulmonary embolism Problem: Chronic Qualifiers: Pulmonary embolism type: saddle Chronicity: chronic Acute cor pulmonale presence: without acute cor pulmonale Qualified Code(s): I26.92 - Saddle embolus of pulmonary artery without acute cor pulmonale
[2017-01-18] MEDS: PANTOPRAZOLE SODIUM 40 MG TABLET.EC PO SCH (07:01)
[2017-01-18] MEDS: SODIUM CHLORIDE FOR INHALATION 4 ML VIAL.NEB IH SCH (09:30)
[2017-01-18] MEDS: HYDROPHILIC OINTMENT 454 APPL JAR TP SCH ×2 (10:05→20:19)
[2017-01-18] MEDS: METOPROLOL SUCCINATE 100 MG TABLET.SA PO SCH ×2 (10:05→20:20)
[2017-01-18] MEDS: APIXABAN 2.5 MG TABLET PO SCH ×2 (10:06→20:19)
[2017-01-18] MEDS ORDERED: FUROSEMIDE 10 MG/ML VIAL IV ONE (11:00)
[2017-01-18] MEDS: CHOLECALCIFEROL 5,000 UNIT TABLET PO SCH (11:23)
[2017-01-18] MEDS ORDERED: SPIRONOLACTONE 25 MG TABLET PO ONE (12:00)
[2017-01-18] MEDS ORDERED: SPIRONOLACTONE PO ONE ×2 (12:00)
[2017-01-18] MEDS ORDERED: SPIRONOLACTONE 25 MG TABLET ONE ×2 (12:59→13:02)
[2017-01-18] MEDS: TRAVOPROST 25 DROP BTL RIGHTEYE SCH (20:20)
[2017-01-18] MEDS ORDERED: ONDANSETRON 4 MG TAB.RAPDIS PO PRN (20:23)
--- NOTE | 2017-01-19 05:29 | DS ---
(1) Atrial fibrillation with RVR Problem: Acute (2) Renal failure Problem: Acute Qualifiers: Renal failure chronicity: acute on chronic Acute renal failure type: unspecified Chronic kidney disease stage: stage 3 (moderate) Qualified Code( s): N17.9 - Acute kidney failure, unspecified; N18.3 - Chronic kidney disease, stage 3 (moderate) (3) HFrEF (heart failure with reduced ejection fraction) Problem: Acute Qualifiers: Heart failure chronicity: acute on chronic Qualified Code(s): I50.23 - Acute on chronic systolic (congestive) heart failure (4) HTN (hypertension) Problem: Chronic Qualifiers: Hypertension type: essential hypertension Qualified Code(s): I10 - Essential (primary) hypertension (5) COPD on 3L O2 Problem: Chronic (6) FRANCIS (obstructive sleep apnea) Problem: Chronic (7) Depression Problem: Chronic Qualifiers: Depression Type: reactive depression Qualified Code(s): F32.9 - Major depressive disorder, single episode, unspecified (8) Insomnia Problem: Chronic Qualifiers: Insomnia type: due to medical condition Qualified Code(s): G47.01 - Insomnia due to medical condition (9) Pulmonary embolism Problem: Chronic Qualifiers: Pulmonary embolism type: saddle Chronicity: chronic Acute cor pulmonale presence: without acute cor pulmonale Qualified Code(s): I26.92 - Saddle embolus of pulmonary artery without acute cor pulmonale Description of Stay: Date of Admission: 01/15/2017 Date of Discharge: 01/19/2017 Transthoracic Echocardiogram (01/16/2017) - mild concentric LVH - EF 25-35% - septal motion is consistent with conduction abnormality (in afib) - Left atria moderately to severely dilated - Bilateral atrial enlargement with Left > Right - Right atrium mildly dilated - Diastolic Dysfunction - Moderate MR - Mild TR - Pulmonary HTN with RVSP elevated at 63 - Aortic valve sclerosis without evidence of Stenosis Chest xray (01/15/17) - cardiomegaly - chronic lung disease Description of Stay: - 01/15/17: patient presented to ER with c/o increasing dyspnea and orthopnea. found to be in atrial fibrillation with HR 130-140s. has hx COPD on 3L O2. has hx PE currently on eliquis. admitted for afib with rvr and chf exac. given iv lasix and loaded with iv digoxin for heart rate control. metroprolol 50 mg po given q 8 hours for heart rate control as well. tsh checked and was wnl. - 01/16/17: additional dose of IV lasix. add po metolazone and spironolactone to aid in diuresis. monitor on telemetry. - 01/17/17: given additional IV lasix with PO spironolactone. dyspnea improved. weight down 3 kg. metoprolol changed from 50 mg po q 8 hours to 100 mg q 12 hours. digoxin added po q MWF. monitor on telemetry - patient remains tachycardic. - 01/18/17: additional dose of IV lasix with po spironlactone. lower extremity swelling improved. dyspnea improved. - 01/19/17: discharged today with plans for cardiac ablation at [facility] on 01/23/17. discharged on lasix 40 mg daily, sprionlactone 50 mg daily , digoxin 0.125 mg q 48 hours and Toprol xl dose changed to 100 ml daily. lower extremity swelling much improved. dyspnea back to patient's baseline. Procedures Performed: none Results and Findings: Laboratory Tests 01/19/17 05:41 WBC 7.8 Hgb 14.6 Hct 47.4 H Plt Count 297 Sodium 138 Potassium 3.9 Chloride 100 Carbon Dioxide 31.9 BUN 38 Creatinine 1.53 Random Glucose 130 AST 25 ALT 68 Total Protein 6.6 Albumin 3.1 Discharge Disposition: Home self care Disposition: Home self-care Condition: Undetermined Discharge Activity: Activity as tolerated Discharge Diet: Low salt, Low fat/chol Referrals: Teddy Carter MD [Primary Care Provider] - Problem Oriented Discharge Instructions to Patient/Family: Cardiac Ablation, [id number], Electrophysiology Study, Atrial Fibrillation, [id number] Additional Patient Instructions (free text): Has [facility] ongoing, please call and fax discharge information to them. Keep Cardiac Ablation / EP study at [facility] on Monday, January 23, 2017. Do NOT take ANY medications Monday, January 23, 2017 before your Ablation / EP study. New Medications: Vitamin D 5000 units daily (buy over the counter) Lasix 40 mg daily (Rx sent in) Spironolactone 50 mg daily (Rx sent in) Digoxin 0.125 mg every 48 hours (Rx sent in) Dose change: Toprol XL 100 mg Daily (New Rx sent in) Follow up with Dr. Carter in 1 week. on 01-25-17 @ 2:15pm. Prescriptions (Any new or edited meds): Digoxin [Lanoxin] 0.125 mg PO Q48H #15 tablet Furosemide [Lasix] 40 mg PO DAILY #30 tablet Metoprolol Succinate [Toprol Xl] 100 mg PO BID #60 tablet. Spironolactone 50 mg PO DAILY #30 tablet Complete Home Medications List: Complete Home Medication List: Travoprost (Benzalkonium) [Travoprost 0.004% Eye Drop] 1 drop RIGHTEYE DAILY 08/17 Ipratropium [place] 250 mcg IH BID 05/04/16 Apixaban [Eliquis] 5 mg PO BID 12/16/16 Budesonide [Pulmicort Respules] 0.5 mg IH BID 12/24/16 Sodium Chloride For Inhalation [Sodium Chloride 3% Inhalation Solution] 4 ml IH DAILY 12/24/16 Acetaminophen 650 mg PO Q6H PRN #30 tablet 12/26/16 Pantoprazole Sodium [Protonix] 40 mg PO 0700 tablet. 12/26/16 Cholecalciferol [Vitamin D] 5,000 unit PO DAILY@1200 tablet 01/19/17 Digoxin [Lanoxin] 0.125 mg PO Q48H #15 tablet 01/19/17 Furosemide [Lasix] 40 mg PO DAILY #30 tablet 01/19/17 Metoprolol Succinate [Toprol Xl] 100 mg PO BID #60 tablet. 01/19/17 Spironolactone 50 mg PO DAILY #30 tablet 01/19/17
[2017-01-19 05:51] LABS: Hematocrit 47.4 % (37.0-47.0); Hemoglobin 14.6 gm/dL (12.5-16.0); Mean Cell Volume 85.3 fl (78-100); Mean Corpuscular Hemoglobin 26.3 pg (27-31); Mean Corpuscular Hgb Conc 30.8 g/dl (32-36); Mean Platelet Volume 10.2 fl (6.0-9.5); Neutrophil # 5.4 K/mm3 (1.3-6.0); Platelet Count 297 K/mm3 (150-450); Red Blood Count 5.56 M/mm3 (4.2-5.4); Red Cell Distribution Width 18.5 % (11.5-14.0); White Blood Count 7.8 K/mm3 (4.0-10.5)
[2017-01-19 06:06] LABS: Albumin * 3.1 gm/dl (3.4-5.0); BUN/Creatinine Ratio 24.8 (9.0-21.6); Bilirubin, Total 0.9 mg/dL (0.0-1.1); Calcium * 9.6 mg/dL (7.9-10.9); Carbon Dioxide 31.9 mmol/L (24-32.6); Potassium 3.9 mmol/L (3.4-4.6); Total Protein 6.6 gm/dL (6.2-8.2)
[2017-01-19] MEDS: IPRATROPIUM BROMIDE 0.5 MG/2.5 ML VIAL.NEB IH SCH (06:12)
[2017-01-19] MEDS: BUDESONIDE 0.5 MG/2 ML VIAL.NEB IH SCH (06:14)
[2017-01-19] MEDS: PANTOPRAZOLE SODIUM 40 MG TABLET.EC PO SCH (06:29)
[2017-01-19] MEDS: HYDROPHILIC OINTMENT 454 APPL JAR TP SCH (09:27)
[2017-01-19] MEDS: APIXABAN 2.5 MG TABLET PO SCH (09:27)
[2017-01-19] MEDS: METOPROLOL SUCCINATE 100 MG TABLET.SA PO SCH (09:27)
--- NOTE | 2017-01-19 10:18 | ECHO ---
This report is available in the EMR
[2017-01-19 11:09] VITALS: BP 113/73
[2017-01-19] MEDS: SODIUM CHLORIDE FOR INHALATION 4 ML VIAL.NEB IH SCH (12:57)
[2017-01-19] MEDS: CHOLECALCIFEROL 5,000 UNIT TABLET PO SCH (12:58)
[2017-01-19] MEDS: DIGOXIN 0.125 MG TABLET PO SCH (12:58)
== END 2017-01-19 13:32 | disposition home health service (06) | DRG 293 ==
LOC: ER 11:56 → MS 13:43 → OBSVTOIN 01-16 13:30
PROVIDERS: ADMIT Allergy & Immunology; ATTEND Internal Medicine
PROC: B246ZZZ Ultrasonography of Right and Left Heart (ICD-10-PCS; principal; 2017-01-16)
DX: I50.23 Acute on chronic systolic (congestive) heart failure (principal); I48.2 Chronic atrial fibrillation; I12.9 Hypertensive chronic kidney disease with stage 1 through stage 4 chronic kidney disease, or unspecified chronic kidney disease; N18.3 Chronic kidney disease, stage 3 (moderate); F32.9 Major depressive disorder, single episode, unspecified; J44.9 Chronic obstructive pulmonary disease, unspecified; G47.01 Insomnia due to medical condition; Z99.81 Dependence on supplemental oxygen; Z79.01 Long term (current) use of anticoagulants; Z86.711 Personal history of pulmonary embolism; Z85.3 Personal history of malignant neoplasm of breast
CPT/HCPCS: 36415; 71020; 80048; 80053; 80076; 80162; 83880; 85025; 93005; 93306; 94640; 94760; 97110; 97116; 97161; 99284; G0378; G8978; G8979; G8980

== ENCOUNTER 2018-07-13 17:47 | Inpatient (IN) | payer MEDICARE, OTHER ==
--- NOTE | 2018-07-13 18:01 | ERNOTE ---
Dyspnea - General Presenting Symptoms: shortness of breath Time Seen by Provider: 07/13/18 17:48 Source: patient Exam Limitations: no limitations - Immun/Allergies/Home Medications Immunizations: IMMUNIZATION HX Immunizations Up to Date Yes History of Influenza Vaccine Yes Hx Pneumococcal Vaccination Yes Allergies/Adverse Reactions: Allergies meperidine HCl [From Demerol] Allergy (Mild, Verified 07/13/18 17:55) Penicillins Allergy (Mild, Verified 07/13/18 17:55) Sulfa (Sulfonamide Antibiotics) [Sulfa(Sulfonamide Antibiotics)] Allergy (Mild, Verified 07/13/18 17:55) Home Medications: HOME MEDICATIONS Cholecalciferol [Vitamin D] 5,000 unit PO DAILY@1200 tab 01/19/17 [Last Taken Unknown] Albuterol Sulfate [Ventolin HFA] 2 puff INHALATION BID 07/13/18 [Last Taken Unknown] Apixaban [Eliquis] 2.5 mg PO BID 07/13/18 [Last Taken Unknown] Metoprolol Succinate [Toprol Xl] 100 mg PO DAILY 07/13/18 [Last Taken Unknown] Metoprolol Succinate [Toprol Xl] 100 mg PO DAILY 07/13/18 [Last Taken Unknown] Pantoprazole Sodium 20 mg PO DAILY 07/13/18 [Last Taken Unknown] - History of Present Illness Narrative: Patient has a history of CHF and COPD, is on home O2 that was today increased from 4 to 5liters today. She has had increasing shortness of breath for a few weeks, worse the last couple of days, can barely walk from one room to the other, O2 sats drop to the 70's with walking. Her lasix was stopped a few weeks ago. She has a cough with white phlegm, runny nose, no fever. 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 Denies: out of meds Frequency of episodes: Reports: occassional episodes Modifying Factors - (Improves): Reports: oxygen, rest Modifying Factors (Worsens): Reports: activity Associated Symptoms-Dyspnea: Reports: cough. Denies: fever/chills, sweating, chest pain/discomfort, dizziness Prior Treatment: Denies: recently seen, currently on antibiotics Review of Systems - Review of Systems Constitutional: Absent: recent illness, fever EYE: Absent: vision changes ENT: Present: nasal drainage. Absent: ear pain Respiratory: Present: shortness of breath, cough Cardiology: Absent: chest pain, palpitations Gastrointestinal/Abdominal: Absent: nausea, vomiting, abdominal pain Genitourinary: Present: no symptoms reported Musculoskeletal: Absent: back pain Neurological: Absent: headache, dizziness/light-headedness, weakness, numbness Surgical History: Surgical History (Last Reviewed 07/13/18 @ 19:05 by Sandhya Quinteros MD) History of permanent cardiac pacemaker placement (Chronic) Onset Date: ~01/23/17 Biventricular pacemaker implantation at [facility] Dr. 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 sigmoid diverticulosis History of cholecystectomy (Acute) Onset Date: ~1995 History of cataract (Acute) Onset Date: ~11/2007 H/O cardiac catheterization (Acute) Onset Date: ~1994 H/O prior ablation treatment (Acute) Onset Date: ~01/23/17 Comminuted fracture Onset Date: ~06/2004 H/O dilation and curettage Onset Date: ~1969 History of appendectomy Onset Date: Unknown History of ear surgery Onset Date: ~1982 Family History: Family History (Last Reviewed 03/08/18 @ 13:19 by Claire Antunez RN) Father Cancer colon with mets to pancreas Grandmother Osteoporosis Mother Heart failure Melanoma Social History: Preferred Language Sami Smoking Status Former smoker Abuse History No History of abuse Psych History No pertinent hx Alcohol Use none Drug Use none (Last Updated 03/08/18 @ 14:30 by Tri Huynh DO) No Social History Section defined Physical Exam - Physical Exam General Appearance: Present: wd/wn, alert, no apparent distress Head Exam: Present: normal inspection Ears, Nose, Throat: Present: normal pharynx Respiratory: Present: no respiratory distress, decreased breath sounds, expiration (prolonged) Cardiovascular/Chest: Present: regular rate, rhythm, no murmur Gastrointestinal/Abdominal: Present: normal bowel sounds, nontender Extremity Exam: Present: pedal edema Neurological Exam: Present: alert, oriented Skin Exam: Present: normal color, warm/dry, skin rash - intertrigo in groin Progress - Results and Orders Patient's Lab Results:: I have reviewed the patient's lab results. - Vital Signs Patient's Vital Signs:: I have reviewed the patient's vital signs. Vital Signs: Vital Signs 07/13/18 17:52 Temperature 36.7 C Pulse Rate 84 Respiratory Rate 22 H Blood Pressure 145/109 H O2 Sat by Pulse Oximetry 93 - EKG EKG #1 EKG: other - pacemaker EKG EKG read: Interp. by me - X-Ray X-Ray #1 X-Ray: chest - venous congestion Interpretation: Interp. by me - Progress/Reassessment Chief Complaint: Dyspnea Progress Note-Subjective: 07/13/18 19:30 discussed with joseph Law to admit for observation for CHF exacerbation 07/13/18 20:29 patient was sitting on the commode when she became short of breath and her O2 sats dropped to the 80's when back in bed O2 back to low 90's with 5liter, lungs with slight wheezing, good air movement patient states that this feels like an anxiety attack Departure Clinical Impression: CHF (congestive heart failure) Qualifiers: Heart failure type: unspecified Heart failure chronicity: acute on chronic Qualified Code(s): I50.9 - Heart failure, unspecified - Departure Disposition: Still a patient Condition: Stable
[2018-07-13 18:53] LABS: Hematocrit 47.6 % (37.0-47.0); Hemoglobin 14.1 gm/dL (12.5-16.0); Mean Cell Volume 90.7 fl (78-100); Mean Corpuscular Hemoglobin 26.9 pg (27-31); Mean Corpuscular Hgb Conc 29.6 g/dl (32-36); Mean Platelet Volume 10.5 fl (8-12.5); Neutrophil # 4.3 K/mm3 (1.3-6.0); Neutrophil % 71.4 % (42-75.0); Platelet Count 254 K/mm3 (150-450); Red Blood Count 5.25 M/mm3 (4.2-5.4); Red Cell Distribution Width 16.3 % (11.5-14.0); White Blood Count 6.1 K/mm3 (4.0-10.5)
[2018-07-13 19:09] LABS: ALT 21 U/L (19-67); AST 14 U/L (0-48); Albumin * 3.1 gm/dl (3.4-5.0); Alkaline Phosphatase * 108 U/L (50-170); Anion Gap 8.9 mmol/L (6.8-13.8); BNP * 4034 pg/mL (5-550); BUN/Creatinine Ratio 19.1 (9.0-21.6); Bilirubin, Total 0.6 mg/dL (0.0-1.1); Blood Urea Nitrogen 22 mg/dL (3-23); Ca. Corrected For Albumin 10.3 mg/dL (8.4-10.2); Calcium * 9.9 mg/dL (7.9-10.9); Carbon Dioxide 32.6 mmol/L (24-32.6); Chloride 105 mmol/L (97-106); Glucose * 96 mg/dL (70-110); Potassium 4.5 mmol/L (3.4-4.6); Sodium 142 mmol/L (132-142); Total Protein 6.8 gm/dL (6.2-8.2); Troponin I Less than 0.017 ng/mL (0.00-0.10)
[2018-07-13] MEDS ORDERED: FUROSEMIDE 10 MG/ML VIAL IV ONE (19:30)
[2018-07-13] MEDS ORDERED: MORPHINE SULFATE 2 MG/ML DISP.SYRIN IV ONE ×2 (19:51→20:28)
[2018-07-13] MEDS ORDERED: predniSONE 20 MG TABLET PO ONE (19:51)
[2018-07-13] MEDS ORDERED: ALBUTEROL SULFATE 2.5 MG/0.5 ML VIAL.NEB IH ONE (20:25)
[2018-07-13] MEDS ORDERED: ALBUTEROL SULFATE 2.5 MG/0.5 ML VIAL.NEB IH STA (20:27)
[2018-07-13] MEDS ORDERED: MORPHINE SULFATE 4 MG/ML SYRG IV ONE (20:34)
[2018-07-13 23:21] LABS: Urine Bilirubin Negative (NEGATIVE); Urine Blood 50 /ul (NEGATIVE); Urine Ketone Negative (NEGATIVE); Urine Nitrite Negative (NEGATIVE); Urine Protein Negative (NEGATIVE); Urine Specific Gravity 1.015 SP.GR. (1.005-1.010); Urine Urobilinogen Normal (NORMAL); Urine pH 6.5 pH (5.0-7.0)
[2018-07-13 23:44] LABS: Urine Appearance Clear (CLEAR)
[2018-07-13 23:45] LABS: Urine Bacteria TRACE; Urine Color Pale Yellow; Urine WBC 25-50 /hpf (0-5)
--- NOTE | 2018-07-14 09:02 | HP ---
Chief Complaint - Chief Complaint Date of Service: 07/14/18 Time of Service: 09:02 Chief Complaint: shortness of breath History of Present Illness: Deborah Cruz, is a 77-year-old white female, with previous medical history of atrial fibrillation, coronary artery disease, dilated cardiomyopathy, hypertension, COPD, who was admitted on 07/13/2018 because of increasing shortness of breath. The patient said that she has been short of breath and swollen over the past few months. Her prior PCP stopped her Lasix and her new PCP restarted it. She did not see any improvement so she stopped it again by herself. For the past few days, she had been having more shortness of breath associated swollen with wheezing, edema and weight gain. She was brought to the emergency room where she was found to have an elevated BNP and pulmonary congestion on her chest x-ray. In the emergency room her oxygen saturation dropped to 71% when walking. Her ABG showed hypoxemia on 5 L of night nasal cannula. She was admitted for observation and continued on IV diuretics . This morning the patient is still visibly out of breath with fishmouth breathing even while just sitting on her recliner. This despite putting out 1.6 L of fluid overnight. She will be transferred to acute status and will continue with more IV diuresis. Medical History (Last Reviewed 07/13/18 @ 22:56 by Roberta Garcia RN) A-fib CHF (congestive heart failure) COPD (chronic obstructive pulmonary disease) Hypertension Surgical History: Surgical History (Last Reviewed 07/13/18 @ 22:58 by Roberta Garcia RN) History of permanent cardiac pacemaker placement (Chronic) Onset Date: ~01/23/17 Biventricular pacemaker implantation at [facility] Dr. 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 sigmoid diverticulosis History of cholecystectomy (Acute) Onset Date: ~1995 History of cataract (Acute) Onset Date: ~11/2007 H/O cardiac catheterization (Acute) Onset Date: ~1994 H/O prior ablation treatment (Acute) Onset Date: ~01/23/17 Comminuted fracture Onset Date: ~06/2004 H/O dilation and curettage Onset Date: ~1970 History of appendectomy Onset Date: Unknown History of ear surgery Onset Date: ~1982 Family History: Family History (Last Reviewed 07/13/18 @ 22:59 by Roberta Garcia RN) Father Cancer colon with mets to pancreas Grandmother Osteoporosis Mother Heart failure Melanoma Social History: Patient Lives/Resources Home Utilized Occupation Retired Preferred Language Hebrew Do you have any congregation or No cultural preference? Smoking Status Former smoker Have you smoked in the past 12 No months Do you dip or chew tobacco No Abuse History No History of abuse Psych History No pertinent hx Alcohol Use none Drug Use none (Last Updated 03/08/18 @ 14:30 by Tri Huynh DO) No Social History Section defined Review Of Systems (GEN) - Review of Systems Generalized/Overall Review: Present: Weakness. Absent: Chills, Fever EENTM: Absent: Blurred Vision Respiratory: Present: Shortness of Breath, Orthopnea, Wheezing. Absent: Cough Cardiac: Present: Edema. Absent: Chest Pain Abdominal: Absent: Nausea, Vomiting Genitourinary: Absent: Urgency, Frequency Musculoskeletal: Absent: Joint Pain Immunizations: IMMUNIZATION HX Immunizations Up to Date Yes History of Influenza Vaccine Yes Hx Pneumococcal Vaccination Yes Allergies/Adverse Reactions: Allergies Allergy/AdvReac Type Severity Reaction Status Date / Time meperidine HCl [From Demerol] Allergy Mild Verified 07/13/18 17:55 Penicillins Allergy Mild Verified 07/13/18 17:55 Sulfa (Sulfonamide Allergy Mild Verified 07/13/18 17:55 Antibiotics) [Sulfa(Sulfonamide Antibiotics)] Home Medications: HOME MEDICATIONS Cholecalciferol [Vitamin D] 5,000 unit PO DAILY@1200 tab 01/19/17 [Last Taken Unknown] Albuterol Sulfate [Ventolin HFA] 2 puff INHALATION BID 07/13/18 [Last Taken Unknown] Apixaban [Eliquis] 2.5 mg PO BID 07/13/18 [Last Taken Unknown] Metoprolol Succinate [Toprol Xl] 100 mg PO BID 07/13/18 [Last Taken Unknown] Pantoprazole Sodium 20 mg PO DAILY 07/13/18 [Last Taken Unknown] Exam - Exam Vital Signs: Vital Signs - Last Taken Temp 36.7 C 07/14/18 07:53 Pulse 74 07/14/18 07:53 Resp 20 07/14/18 07:53 BP 116/66 07/14/18 07:53 Pulse Ox 100 07/14/18 07:53 Constitutional: Present: Alert, Oriented x3, Cooperative, Elderly, Obese ENT Exam: Present: hearing grossly normal Eye Exam: bilateral eye: normal inspection, PERRL, EOMI Neck: Present: supple Respiratory: Present: decreased breath sounds, rales, wheezing Cardiovascular/Chest: Present: regular rate, rhythm, JVD, edema Abdomen: Present: Normal bowel sounds, soft, nontender, obese Extremity: Present: calf tenderness, lower extremity edema Diagnostic Studies: Abnormal Lab Results 07/13/18 07/13/18 07/13/18 Range/Units 18:00 18:30 18:42 Hct 47.6 H (37.0-47.0) % MCH 26.9 L (27-31) pg MCHC 29.6 L (32-36) g/dl RDW 16.3 H (11.5-14.0) % Lymphocytes % 12.8 L (20-51) % Monocytes % 12.2 H (0.0-9) % Lymphocytes # 0.78 L (1.5-3.5) k/mm3 pCO2 55.7 H (32.0-45.0) mmHg pO2 20.7 L* 67.9 L (83.0-108.0) mmHg HCO3 29.4 H (21.0-28.0) mmol/L Total CO2 31.1 H 28.2 H (19.0-24.0) mmol/L Base Excess 3.4 H (-2.0-3.0) mmol/L ABG pH 7.34 L 7.47 H (7.35-7.45) ABG O2 Sat (Measured) 30.3 L (94.0-98.0) % Est GFR (Non-Af Amer) (60-130) mL/min Calcium Adj for Albumin (8.4-10.2) mg/dL B-Natriuretic Peptide (5-550) pg/mL Albumin (3.4-5.0) gm/dl Urine Blood (NEGATIVE) /ul Ur Leukocyte Esterase (NEGATIVE) /ul Urine RBC (0-5) /hpf Urine WBC (0-5) /hpf 07/13/18 07/13/18 Range/Units 18:42 23:14 Hct (37.0-47.0) % MCH (27-31) pg MCHC (32-36) g/dl RDW (11.5-14.0) % Lymphocytes % (20-51) % Monocytes % (0.0-9) % Lymphocytes # (1.5-3.5) k/mm3 pCO2 (32.0-45.0) mmHg pO2 (83.0-108.0) mmHg HCO3 (21.0-28.0) mmol/L Total CO2 (19.0-24.0) mmol/L Base Excess (-2.0-3.0) mmol/L ABG pH (7.35-7.45) ABG O2 Sat (Measured) (94.0-98.0) % Est GFR (Non-Af Amer) 48 L (60-130) mL/min Calcium Adj for Albumin 10.3 H (8.4-10.2) mg/dL B-Natriuretic Peptide 4034 H (5-550) pg/mL Albumin 3.1 L (3.4-5.0) gm/dl Urine Blood 50 H (NEGATIVE) /ul Ur Leukocyte Esterase 75 H (NEGATIVE) /ul Urine RBC 5-10 H (0-5) /hpf Urine WBC 25-50 H (0-5) /hpf Laboratory Results WBC 6.1 K/mm3 (4.0-10.5) 07/13/18 18:42 RBC 5.25 M/mm3 (4.2-5.4) 07/13/18 18:42 Hgb 14.1 gm/dL (12.5-16.0) 07/13/18 18:42 Hct 47.6 % (37.0-47.0) H 07/13/18 18:42 MCV 90.7 fl (78-100) 07/13/18 18:42 MCH 26.9 pg (27-31) L 07/13/18 18:42 MCHC 29.6 g/dl (32-36) L 07/13/18 18:42 RDW 16.3 % (11.5-14.0) H 07/13/18 18:42 Plt Count 254 K/mm3 (150-450) 07/13/18 18:42 MPV 10.5 fl (8-12.5) 07/13/18 18:42 Immature Gran % (Auto) 0.30 % (0.001-0.429) 07/13/18 18:42 Immature Gran # (Auto) 0.02 K/mm3 (0.000-0.0310) 07/13/18 18:42 Neutrophils % 71.4 % (42-75.0) 07/13/18 18:42 Lymphocytes % 12.8 % (20-51) L 07/13/18 18:42 Monocytes % 12.2 % (0.0-9) H 07/13/18 18:42 Eosinophils % 3.0 % (0.0-3.0) 07/13/18 18: Basophils % 0.3 % (0.0-1.0) 07/13/18 18: Nucleated RBC % 0.0 k/mm3 (0-1) 07/13/18 18: Neutrophils # 4.3 K/mm3 (1.3-6.0) 07/13/18 18: Lymphocytes # 0.78 k/mm3 (1.5-3.5) L 07/13/18 18: Monocytes # 0.7 k/mm3 (0.0-1.0) 07/13/18 18: Eosinophils # 0.2 k/mm3 (0.0-0.7) 07/13/18 18: Absolute Basophils 0.0 k/mm3 (0.0-0.1) 07/13/18 18:42 pCO2 37.8 mmHg (32.0-45.0) 07/13/18 18:30 pO2 67.9 mmHg (83.0-108.0) L 07/13/18 18:30 HCO3 27.0 mmol/L (21.0-28.0) 07/13/18 18:30 Total CO2 28.2 mmol/L (19.0-24.0) H 07/13/18 18:30 Base Excess 3.4 mmol/L (-2.0-3.0) H 07/13/18 18:30 ABG pH 7.47 (7.35-7.45) H 07/13/18 18:30 ABG O2 Sat (Measured) 94.7 % (94.0-98.0) 07/13/18 18:30 Sodium 142 mmol/L (132-142) 07/13/18 18:42 Plasma Sodium 142 mmol/L (130-142) 07/13/18 18:42 Potassium 4.5 mmol/L (3.4-4.6) 07/13/18 18:42 Chloride 105 mmol/L (97-106) 07/13/18 18:42 Carbon Dioxide 32.6 mmol/L (24-32.6) 07/13/18 18:42 Anion Gap 8.9 mmol/L (6.8-13.8) 07/13/18 18:42 BUN 22 mg/dL (3-23) 07/13/18 18:42 Creatinine 1.15 mg/dL (0.4-1.4) 07/13/18 18:42 Est GFR (Non-Af Amer) 48 mL/min (60-130) L 07/13/18 18:42 BUN/Creatinine Ratio 19.1 (9.0-21.6) 07/13/18 18:42 Random Glucose 96 mg/dL (70-110) 07/13/18 18:42 Calcium 9.9 mg/dL (7.9-10.9) 07/13/18 18:42 Calcium Adj for Albumin 10.3 mg/dL (8.4-10.2) H 07/13/18 18:42 Total Bilirubin 0.6 mg/dL (0.0-1.1) 07/13/18 18:42 AST 14 U/L (0-48) 07/13/18 18:42 ALT 21 U/L (19-67) 07/13/18 18:42 Alkaline Phosphatase 108 U/L (50-170) 07/13/18 18:42 Troponin I Less than 0.017 ng/mL (0.00-0.10) 07/13/18 18:42 B-Natriuretic Peptide 4034 pg/mL (5-550) H 07/13/18 18:42 Total Protein 6.8 gm/dL (6.2-8.2) 07/13/18 18:42 Albumin 3.1 gm/dl (3.4-5.0) L 07/13/18 18:42 Urine Color Pale yellow 07/13/18 23:14 Urine Appearance Clear (CLEAR) 07/13/18 23:14 Urine pH 6.5 pH (5.0-7.0) 07/13/18 23:14 Ur Specific Ranson 1.015 SP.GR. (1.005-1.010) 07/13/18 23:14 Urine Protein Negative mg/dL (NEGATIVE) 07/13/18 23:14 Urine Glucose (UA) Negative mg/dL (NEGATIVE) 07/13/18 23:14 Urine Ketones Negative mg/dL (NEGATIVE) 07/13/18 23:14 Urine Blood 50 /ul (NEGATIVE) H 07/13/18 23:14 Urine Nitrate Negative (NEGATIVE) 07/13/18 23:14 Urine Bilirubin Negative mg/dl (NEGATIVE) 07/13/18 23:14 Urine Urobilinogen Normal EU/dl (NORMAL) 07/13/18 23:14 Ur Leukocyte Esterase 75 /ul (NEGATIVE) H 07/13/18 23:14 Urine RBC 5-10 /hpf (0-5) H 07/13/18 23:14 Urine WBC 25-50 /hpf (0-5) H 07/13/18 23:14 Ur Epithelial Cells None seen /hpf (0-5) 07/13/18 23:14 Urine Bacteria Trace (NONE) 07/13/18 23:14 Assessment/Plan - Assessment/Plan (1) Acute respiratory failure with hypoxemia Assessment: due to acute CHF. will continue with O2 and breathing treatments. Problem: Acute (2) Acute exacerbation of CHF (congestive heart failure) Assessment: due to missed medications. will transfer her to acute status and continue with IV diuretics. Problem: Acute Qualifiers: Heart failure type: combined systolic and diastolic Qualified Code(s): I50.43 - Acute on chronic combined systolic (congestive) and diastolic (congestive) heart failure (3) HTN (hypertension) Problem: Chronic Qualifiers: Hypertension type: essential hypertension Qualified Code(s): I10 - Essential (primary) hypertension (4) FRANCIS (obstructive sleep apnea) Problem: Chronic (5) Chronic atrial fibrillation Assessment: s/p pacemaker placement Problem: Chronic (6) Dilated cardiomyopathy Problem: Chronic (7) History of permanent cardiac pacemaker placement Problem: Chronic (8) CRF (chronic renal failure) Problem: Chronic Qualifiers: Chronic kidney disease stage: stage 3 (moderate) Qualified Code(s): N18.3 - Chronic kidney disease, stage 3 (moderate) (9) COPD (chronic obstructive pulmonary disease) Assessment: will continue with breathing treatments Problem: Chronic
[2018-07-14] MEDS ORDERED: FUROSEMIDE 10 MG/ML VIAL IV ONE (09:10)
[2018-07-14] MEDS: METOPROLOL SUCCINATE 100 MG TABLET.SA PO SCH ×2 (10:07→20:21)
[2018-07-14] MEDS: APIXABAN 2.5 MG TABLET PO SCH ×2 (10:07→20:23)
[2018-07-14] MEDS: PANTOPRAZOLE SODIUM 20 MG TABLET.DR PO SCH (10:08)
[2018-07-14] MEDS: ALBUTEROL SULFATE 2.5 MG/0.5 ML VIAL.NEB IH SCH ×3 (11:30→18:59)
[2018-07-14] MEDS: NYSTATIN 15 APPL BTL TP SCH ×2 (12:01→20:23)
[2018-07-14] MEDS: CHOLECALCIFEROL 5,000 UNIT TABLET PO SCH (12:01)
[2018-07-14 14:07] LABS: Hematocrit 47.5 % (37.0-47.0); Hemoglobin 14.3 gm/dL (12.5-16.0); Mean Cell Volume 89.8 fl (78-100); Mean Corpuscular Hgb Conc 30.1 g/dl (32-36); Mean Platelet Volume 10.1 fl (8-12.5); Neutrophil # 5.2 K/mm3 (1.3-6.0); Neutrophil % 74.6 % (42-75.0); Platelet Count 227 K/mm3 (150-450); Red Blood Count 5.29 M/mm3 (4.2-5.4); Red Cell Distribution Width 16.5 % (11.5-14.0)
[2018-07-14 14:13] LABS: Anion Gap 10.4 mmol/L (6.8-13.8); BUN/Creatinine Ratio 21.5 (9.0-21.6); Carbon Dioxide 33.7 mmol/L (24-32.6); Estimated Creat Clear 36.7; Potassium 4.1 mmol/L (3.4-4.6)
[2018-07-14] MEDS: FUROSEMIDE 10 MG/ML VIAL IV SCH (20:24)
[2018-07-15] MEDS: ALBUTEROL SULFATE 2.5 MG/0.5 ML VIAL.NEB IH SCH ×3 (06:15→18:19)
[2018-07-15] MEDS: PANTOPRAZOLE SODIUM 20 MG TABLET.DR PO SCH (06:49)
[2018-07-15] MEDS: NYSTATIN 15 APPL BTL TP SCH ×2 (08:06→21:47)
[2018-07-15] MEDS: METOPROLOL SUCCINATE 100 MG TABLET.SA PO SCH ×2 (08:08→21:48)
[2018-07-15] MEDS: APIXABAN 2.5 MG TABLET PO SCH ×2 (08:08→21:47)
[2018-07-15] MEDS: FUROSEMIDE 10 MG/ML VIAL IV SCH (08:10)
--- NOTE | 2018-07-15 08:53 | PN ---
Subjective - Date and Time Seen Date: 07/15/18 Time: 08:49 Subjective Narrative: Feels a little bit better. Still with SOB and wheezing. Objective - Review of Systems Generalized/Overall Review: Denies: Chills, Fever EENTM: Denies: Blurred Vision Respiratory: Reports: Cough, Shortness of Breath, Orthopnea, Wheezing Cardiac: Reports: Edema. Denies: Chest Pain, Palpitations Abdominal: Denies: Nausea, Vomiting Genitourinary Symptoms: Denies: Urgency, Frequency Musculoskeletal Complaints: Reports: Joint Pain - Vitals Vitals: Last Vital Signs Temp 36.4 C 07/15/18 08:05 Pulse 75 07/15/18 08:10 Resp 20 07/15/18 08:05 BP 115/54 07/15/18 08:10 Pulse Ox 95 07/15/18 08:05 - Abnormal Lab Findings Abnormal Lab Findings: Abnormal Lab Results 07/14/18 07/14/18 Range/Units 14:01 14:01 Hct 47.5 H (37.0-47.0) % MCHC 30.1 L (32-36) g/dl RDW 16.5 H (11.5-14.0) % Lymphocytes % 11.9 L (20-51) % Monocytes % 10.7 H (0.0-9) % Lymphocytes # 0.83 L (1.5-3.5) k/mm3 Sodium 145 H (132-142) mmol/L Plasma Sodium 146 H (130-142) mmol/L Carbon Dioxide 33.7 H (24-32.6) mmol/L BUN 26 H (3-23) mg/dL Est GFR (Non-Af Amer) 46 L (60-130) mL/min Random Glucose 144 H D (70-110) mg/dL - Exam Constitutional: Present: Alert, Oriented x3, Cooperative, Elderly ENT Exam: Present: hearing grossly normal Neck: Present: supple Respiratory: Present: decreased breath sounds, rales, wheezing, expiration (prolonged) Cardiovascular/Chest: Present: regular rate, rhythm, no murmur, JVD Abdomen: Present: Normal bowel sounds, soft, nontender, nondistended Extremity: Present: no calf tenderness, lower extremity edema Assessment/Plan - Problems/Diagnosis (1) Acute respiratory failure with hypoxemia Problem: Acute (2) Acute exacerbation of CHF (congestive heart failure) Problem: Acute Qualifiers: Heart failure type: combined systolic and diastolic Qualified Code(s): I50.43 - Acute on chronic combined systolic (congestive) and diastolic (congestive) heart failure Narrative: weight loss- 5-6 kg. leg edema improved. will decrease her lasix to 60 mg IV q a.m. check BMP. (3) HTN (hypertension) Problem: Chronic Qualifiers: Hypertension type: essential hypertension Qualified Code(s): I10 - E ssential (primary) hypertension (4) FRANCIS (obstructive sleep apnea) Problem: Chronic (5) Chronic atrial fibrillation Problem: Chronic (6) Dilated cardiomyopathy Problem: Chronic (7) History of permanent cardiac pacemaker placement Problem: Chronic (8) CRF (chronic renal failure) Problem: Chronic Qualifiers: Chronic kidney disease stage: stage 3 (moderate) Qualified Code(s): N18.3 - Chronic kidney disease, stage 3 (moderate) (9) COPD (chronic obstructive pulmonary disease) Problem: Chronic Narrative: air exchange is still sparse with expiratory wheezing . will increase breathing treatment a nd start IV solumedrol.
[2018-07-15] MEDS ORDERED: FUROSEMIDE 10 MG/ML VIAL IV ONE (09:15)
[2018-07-15 09:37] LABS: Anion Gap 8.2 mmol/L (6.8-13.8); BUN/Creatinine Ratio 22.4 (9.0-21.6); Calcium * 9.9 mg/dL (7.9-10.9); Carbon Dioxide 34.8 mmol/L (24-32.6); Estimated Creat Clear 35.5
[2018-07-15] MEDS: METHYLPREDNISOLONE SOD SUCC/PF 40 MG/ML VIAL IV SCH ×3 (10:17→21:47)
[2018-07-15] MEDS: CHOLECALCIFEROL 5,000 UNIT TABLET PO SCH (12:07)
[2018-07-16] MEDS: ALBUTEROL SULFATE 2.5 MG/0.5 ML VIAL.NEB IH SCH ×4 (00:18→18:17)
[2018-07-16] MEDS: METHYLPREDNISOLONE SOD SUCC/PF 40 MG/ML VIAL IV SCH ×4 (04:01→21:10)
[2018-07-16 06:20] LABS: Anion Gap 9.4 mmol/L (6.8-13.8); BUN/Creatinine Ratio 27.5 (9.0-21.6); Calcium * 9.7 mg/dL (7.9-10.9); Carbon Dioxide 34.5 mmol/L (24-32.6); Estimated Creat Clear 40.7; Potassium 3.9 mmol/L (3.4-4.6)
[2018-07-16] MEDS: APIXABAN 2.5 MG TABLET PO SCH ×2 (08:23→22:34)
[2018-07-16] MEDS: FUROSEMIDE 10 MG/ML VIAL IV SCH (08:23)
[2018-07-16] MEDS: METOPROLOL SUCCINATE 100 MG TABLET.SA PO SCH ×2 (08:23→21:11)
[2018-07-16] MEDS: PANTOPRAZOLE SODIUM 20 MG TABLET.DR PO SCH (08:23)
[2018-07-16] MEDS: NYSTATIN 15 APPL BTL TP SCH ×2 (08:24→21:09)
--- NOTE | 2018-07-16 08:46 | PN ---
Subjective - Date and Time Seen Date: 07/16/18 Time: 08:41 Subjective Narrative: Patient SOB with activity. Visibly SOB just sitting but she says she sasy her breathing is a little bit better than yesterday. Lost 6 kg. Objective - Review of Systems Generalized/Overall Review: Reports: Weakness. Denies: Chills, Fever Respiratory: Reports: Shortness of Breath, Orthopnea, Wheezing. Denies: Cough Cardiac: Reports: Edema. Denies: Chest Pain, Palpitations Abdominal: Denies: Nausea, Vomiting Genitourinary Symptoms: Denies: Urgency, Frequency Musculoskeletal Complaints: Denies: Joint Pain - Vitals Vitals: Last Vital Signs Temp 36.2 C 07/16/18 05:55 Pulse 74 07/16/18 08:23 Resp 20 07/16/18 06:18 BP 126/60 07/16/18 08:23 Pulse Ox 89 L 07/16/18 07:58 - Abnormal Lab Findings Abnormal Lab Findings: Abnormal Lab Results 07/15/18 07/16/18 Range/Units 09:24 05:50 Sodium 143 H 144 H (132-142) mmol/L Plasma Sodium 144 H 146 H (130-142) mmol/L Carbon Dioxide 34.8 H 34.5 H (24-32.6) mmol/L BUN 28 H 30 H (3-23) mg/dL Est GFR (Non-Af Amer) 44 L 51 L (60-130) mL/min BUN/Creatinine Ratio 22.4 H 27.5 H (9.0-21.6) Random Glucose 171 H 194 H (70-110) mg/dL B-Natriuretic Peptide 2964 H (5-550) pg/mL - Exam Constitutional: Present: Alert, Oriented x3, Cooperative, Elderly, Obese ENT Exam: Present: hearing grossly normal Neck: Present: supple Respiratory: Present: decreased breath sounds, wheezing - occasionally, No rales Cardiovascular/Chest: Present: regular rate, rhythm, no murmur, JVD Abdomen: Present: Normal bowel sounds, soft, nontender, nondistended Extremity: Present: no calf tenderness, lower extremity edema Assessment/Plan - Problems/Diagnosis (1) Pulmonary HTN Problem: Chronic Narrative: worsening from before. ADDENDUM: Repeat Echo shows improved EF of 60-65%, but RVSP is 75. unlikely due to P.E . as she is on eliquis. positive diastolic dysfunction. will need LABA =/- steroid oin top of her cardia meds. Her PHTN likely is due to her diastolic dysfunction and COPD. (2) Acute respiratory failure with hypoxemia Problem: Acute Narrative: 89 % on RA. back on NC 4L. (3) Acute exacerbation of CHF (congestive heart failure) Problem: Acute Qualifiers: Heart failure type: combined systolic and diastolic Qualified Code(s): I50 .43 - Acute on chronic combined systolic (congestive) and diastolic (congestive) heart failure Narrative: continue with IV diuresis. will repeat Echo. BNP decreased by almost 1/2. will add Lisinopril and spironolactone. consider changing Torpol Xl to carvedilol if Echo still shows decreased EF. (4) Dilated cardiomyopathy Problem: Chronic Narrative: will do a follow up Echo. last EF 25-30% in 2017. consider changing Torpl XL to carvedilol if EF is still the same. (5) COPD (chronic obstructive pulmonary disease) Problem: Chronic Narrative: continue with breathing tx and IV solumedrol. (6) HTN (hypertension) Problem: Chronic Qualifiers: Hypertension type: essential hypertension Qualified Code(s): I10 - Essential (primary) hypertension (7) FRANCIS (obstructive sleep apnea) Problem: Chronic (8) Chronic atrial fibrillation Problem: Chronic Narrative: on Eliquis (9) History of permanent cardiac pacemaker placement Problem: Chronic (10) CRF (chronic renal failure) Problem: Chronic Qualifiers: Chronic kidney disease stage: stage 3 (moderate) Qualified Code(s): N18.3 - Chronic kidney disease, stage 3 (moderate)
[2018-07-16] MEDS: LISINOPRIL 10 MG TABLET PO SCH (09:59)
[2018-07-16] MEDS: SPIRONOLACTONE 25 MG TABLET PO SCH (09:59)
[2018-07-16] MEDS: CHOLECALCIFEROL 5,000 UNIT TABLET PO SCH (11:22)
[2018-07-17] MEDS: ALBUTEROL SULFATE 2.5 MG/0.5 ML VIAL.NEB IH SCH ×3 (00:44→13:40)
[2018-07-17] MEDS: METHYLPREDNISOLONE SOD SUCC/PF 40 MG/ML VIAL IV SCH ×3 (03:15→15:14)
[2018-07-17] MEDS: PANTOPRAZOLE SODIUM 20 MG TABLET.DR PO SCH (06:51)
--- NOTE | 2018-07-17 08:16 | PN ---
Karlie Note - Interim Date: 07/17/18 Time: 08:14 Narrative: 07/17/18 08:14 Patient feels well enough to go home, but feels like she is dying. She is hoping to get an ambulance ride home today. She does not have pants or shoes that fit her currently due to her swelling. She lives with a roommate, and neither of them drive. Will consult hospice to further answer her questions. With her end stage CHF, she does qualify for hospice. She has significant pulmonary hypertension, and has resisted long acting beta agonists, due to her glaucoma. Ipratropium was also on her medication list previously, but she was unaware and did not start the medication. OK to DC home today, and will discuss transportation home with case management. DC summary to follow later after her hospice consult. 07/17/18 08:18
[2018-07-17] MEDS: LISINOPRIL 10 MG TABLET PO SCH (09:14)
[2018-07-17] MEDS: FUROSEMIDE 10 MG/ML VIAL IV SCH (09:14)
[2018-07-17] MEDS: NYSTATIN 15 APPL BTL TP SCH (09:15)
[2018-07-17] MEDS: METOPROLOL SUCCINATE 100 MG TABLET.SA PO SCH (09:15)
[2018-07-17] MEDS: APIXABAN 2.5 MG TABLET PO SCH (09:15)
[2018-07-17] MEDS: SPIRONOLACTONE 25 MG TABLET PO SCH (09:15)
--- NOTE | 2018-07-17 11:11 | ECHO ---
This report is available in the EMR
[2018-07-17] MEDS: CHOLECALCIFEROL 5,000 UNIT TABLET PO SCH (12:00)
--- NOTE | 2018-07-17 13:30 | DS ---
(1) COPD (chronic obstructive pulmonary disease) Problem: Chronic Description of Stay: Patient with past medical history of CHF and COPD presented for increased shortness of breath. She had not been taking her prescribed Lasix. She uses 4 L oxygen at baseline, and her rate was increased to 5 L during hospitalization. She is prescribed only Pro Air for COPD, due to perceived side effects from ipratropium and Symbicort. She was given IV Lasix, with a loss of 15 pounds over the course of her hospitalization. She has significant RVSP likely secondary to her COPD. She was weaned back down to her home 4 L. For comfort measures, she can use continuous oxygen. She reports having only a pulse option on her home oxygen tank. With her reluctance to further treat her COPD, and take prescribed Lasix, hospice was discussed. The combination of these 2 diagnoses indicates she may have less than 6 months to live. She reports having a living will. She would like to pursue hospice benefits, and [facility] hospice was consulted. She will go home with hospice benefits. Deborah Cruz is homebound due to advanced CHF and COPD. custodial is needed to assist with medication management. The need for home health care skilled services is directly related to the time spent [id number] with her. Procedures Performed: see notes below - echocardiogram Results and Findings: Lab Pending Results 07/13/18 18:00: pCO2 55.7 H, pO2 20.7 L*, HCO3 29.4 H, Total CO2 31.1 H, Base Excess 2.4, ABG pH 7.34 L, ABG O2 Sat (Measured) 30.3 L 07/13/18 18:30: pCO2 37.8, pO2 67.9 L, HCO3 27.0, Total CO2 28.2 H, Base Excess 3.4 H, ABG pH 7.47 H, ABG O2 Sat (Measured) 94.7 07/13/18 18:42: WBC 6.1, RBC 5.25, Hgb 14.1, Hct 47.6 H, MCV 90.7, MCH 26.9 L, MCHC 29.6 L, RDW 16.3 H, Plt Count 254, MPV 10.5, Immature Gran % (Auto) 0.30, Immature Gran # (Auto) 0.02, Neutrophils % 71.4, Lymphocytes % 12.8 L, Monocytes % 12.2 H, Eosinophils % 3.0, Basophils % 0.3, Nucleated RBC % 0.0, Neutrophils # 4.3, Lymphocytes # 0.78 L, Monocytes # 0.7, Eosinophils # 0.2, Absolute Basophils 0.0 07/13/18 18:42: Sodium 142, Plasma Sodium 142, Potassium 4.5, Chloride 105, Carbon Dioxide 32.6, Anion Gap 8.9, BUN 22, Creatinine 1.15, Est GFR (Non-Af Amer) 48 L, BUN/Creatinine Ratio 19.1, Random Glucose 96, Calcium 9.9, Calcium Adj for Albumin 10.3 H, Total Bilirubin 0.6, AST 14, ALT 21, Alkaline Phosphatase 108, Troponin I Less than 0.017, B-Natriuretic Peptide 4034 H, Total Protein 6.8, Albumin 3.1 L 07/13/18 23:14: Urine Color Pale yellow, Urine Appearance Clear, Urine pH 6.5, Ur Specific [place] 1.015, Urine Protein Negative, Urine Glucose (UA) Negative, Urine Ketones Negative, Urine Blood 50 H, Urine Nitrate Negative, Urine Bilirubin Negative, Urine Urobilinogen Normal, Ur Leukocyte Esterase 75 H, Urine RBC 5-10 H, Urine WBC 25-50 H, Ur Epithelial Cells None seen, Urine Bacteria Trace 07/14/18 14:01: WBC 7.0, RBC 5.29, Hgb 14.3, Hct 47.5 H, MCV 89.8, MCH 27.0, MCHC 30.1 L, RDW 16.5 H, Plt Count 227, MPV 10.1, Immature Gran % (Auto) 0.30, Immature Gran # (Auto) 0.02, Neutrophils % 74.6, Lymphocytes % 11.9 L, Monocytes % 10.7 H, Eosinophils % 2.1, Basophils % 0.4, Nucleated RBC % 0.0, Neutrophils # 5.2, Lymphocytes # 0.83 L, Monocytes # 0.8, Eosinophils # 0.2, Absolute Basophils 0.0 07/14/18 14:01: Sodium 145 H, Plasma Sodium 146 H, Potassium 4.1, Chloride 105, Carbon Dioxide 33.7 H, Anion Gap 10.4, BUN 26 H, Creatinine 1.21, Est GFR (Non- Af Amer) 46 L, BUN/Creatinine Ratio 21.5, Random Glucose 144 H D, Calcium 10.0 07/15/18 09:24: Sodium 143 H, Plasma Sodium 144 H, Potassium 4.0, Chloride 104, Carbon Dioxide 34.8 H, Anion Gap 8.2, BUN 28 H, Creatinine 1.25, Est GFR (Non-Af Amer) 44 L, BUN/Creatinine Ratio 22.4 H, Random Glucose 171 H, Calcium 9.9 07/16/18 05:50: Sodium 144 H, Plasma Sodium 146 H, Potassium 3.9, Chloride 104, Carbon Dioxide 34.5 H, Anion Gap 9.4, BUN 30 H, Creatinine 1.09, Est GFR (Non-Af Amer) 51 L, BUN/Creatinine Ratio 27.5 H, Random Glucose 194 H, Calcium 9.7, B- Natriuretic Peptide 2964 H 07/16/18 13:08: pCO2 47.8 H, pO2 126.2 H, HCO3 32.0 H, Total CO2 33.4 H, Base Excess 6.7 H, ABG pH 7.44, ABG O2 Sat (Measured) 98.6 H Discharge Location: Home Disposition: Hospice Home [facility] Agency: [facility] Home Health Condition: Stable Discharge Activity: Activity as tolerated Discharge Diet: General/regular food Referrals: Tri Huynh DO [Primary Care Provider] - Additional Patient Instructions (free text): -Please make TCM appointment unless custodial discharge. Thank you! [employer] @ [phone]. [facility] Hospice at home. Fax discharge orders and medications at discharge and call report. Prescriptions (Any new or edited meds): predniSONE [Prednisone] 2 tab PO DAILY #14 tab Complete Home Medications List: Complete Home Medication List: Cholecalciferol [Vitamin D] 5,000 unit PO DAILY@1200 tab 01/19/17 Albuterol Sulfate [Ventolin HFA] 2 puff INHALATION BID 07/13/18 Apixaban [Eliquis] 2.5 mg PO BID 07/13/18 Metoprolol Succinate [Toprol Xl] 100 mg PO BID 07/13/18 Pantoprazole Sodium 20 mg PO DAILY 07/13/18 ALPRAZolam [Xanax] 0.25 mg PO QID PRN #120 tab 07/17/18 Atropine Sulfate [Atropine 1% Ophthalmic Solution] 2 drop SL Q4H PRN #15 ml 07/17/18 Morphine Sulfate [Morphine Sulfate Conc. Oral Solution] 5 mg PO Q1H PRN #30 ml 07/17/18 Morphine Sulfate [Ms Contin] 15 mg PO Q12H #60 tablet.er 07/17/18 Ondansetron [Zofran Odt] 4 mg PO Q6H PRN #120 tab 07/17/18 Sennosides [Senokot] 8.6 mg PO BID #60 tablet 07/17/18 predniSONE [Prednisone] 2 tab PO DAILY #14 tab 07/17/18
[2018-07-17 17:03] VITALS: BP 116/64
== END 2018-07-17 17:20 | disposition hospice, home (50) | DRG 291 ==
LOC: ER 17:47 → MS 17:47
PROVIDERS: ADMIT Internal Medicine; ATTEND Family Medicine
DX: I10 Essential (primary) hypertension
CPT/HCPCS: 36415; 36600; 71010; 71020; 71045; 71046; 80048; 80053; 81001; 82803; 83519; 83880; 84484; 85025; 93005; 93306; 94640; 94664; 94760; 96374; 96375; 99284